=== PATIENT | male | born 1945 | race Caucasian/White ===

== ENCOUNTER 2019-09-10 07:45 | Outpatient (RCR) | payer SELFPAY | END 2020-05-14 14:21 | disposition home or self-care (01) | LOC: ANHCPRIII 07:45 | PROVIDERS: PCP Physician Assistant; Visit Provider Specialist | DX: I25.2 Old myocardial infarction (principal); I25.10 Atherosclerotic heart disease of native coronary artery without angina pectoris; I10 Essential (primary) hypertension | CPT/HCPCS: 99199 ==

== ENCOUNTER 2020-11-12 14:59 | Outpatient (CLI) | payer MEDICARE, SELFPAY ==
--- NOTE | ~2020-11-12 | CT_ITS ---
EXAMINATION: CT lung screening DATE: 11/12/2020 15:16 INDICATION: Personal history of nicotine dependence, 50 pack year history TECHNIQUE: Computed tomography (CT) of the chest was performed without intravenous contrast. The dose -length product (DLP) was 80.47 mGy-cm. Automated exposure control and iterative reconstruction techn ique were employed. COMPARISON: 04/09/2019 FINDINGS: There is scarring of the lung apices. Mild emphysema is noted. No suspicious pulmonary nodu les are identified. There is no pleural effusion or pneumothorax. The heart size is normal. Calcified coronary artery atherosclerosis is again noted. There is mild thoracic spondylosis. Healed right-nicholas ed rib fractures are noted. IMPRESSION: 1. Lung-RADS category 1: Negative. Continue annual screening with noncontrast low-dose chest CT in 12 months. Reviewed, dictated and finalized at location A. IMPRESSION: 1. Lung-RADS category 1: Negative. Continue annual screening with noncontrast l ow-dose chest CT in 12 months.
== END 2020-11-12 15:00 | disposition home or self-care (01) ==
PROVIDERS: PCP Physician Assistant; Visit Provider Physician Assistant
DX: Z12.2 Encounter for screening for malignant neoplasm of respiratory organs (principal); Z87.891 Personal history of nicotine dependence
CPT/HCPCS: 71271

== ENCOUNTER 2022-02-05 12:52 | Outpatient (CLI) | payer MEDICARE, SELFPAY ==
--- NOTE | ~2022-02-05 | CT_ITS ---
EXAMINATION: CT lung screening DATE: 02/05/2022 13:17 INDICATION: Personal history of nicotine dependence, current smoker with 45 pack year history TECHNIQUE: Computed tomography (CT) of the chest was performed without intravenous contrast. The dose -length product (DLP) was 174.33 mGy-cm. Automated exposure control and iterative reconstruction tech [facility] were employed. COMPARISON: 11/12/2020 FINDINGS: There is mild emphysema. There is a new 4 mm nodule in the right upper lobe on image 40. No pleural effusion or pneumothorax. No pathologically enlarged thoracic lymph nodes are identified. Th e heart size is normal. There is scarring in the lung apices. There is mild thoracic spondylosis. Hea led right-sided rib fractures are noted. There is unchanged sclerosis in the medial aspect of the man ubrium sternum at the articulation with the first rib. Given the interval stability and the absence o f known malignancy, finding is most consistent with reactive change. IMPRESSION: 1. Lung-RADS category 3: Probably benign. Followup with noncontrast low-dose chest CT in 6 months is recommended. Reviewed, dictated and finalized at location B. IMPRESSION: 1. Lung-RADS category 3: Probably benign. Followup with noncontrast low-dose ch est CT in 6 months is recommended.
== END 2022-02-05 12:53 | disposition home or self-care (01) ==
PROVIDERS: PCP Physician Assistant; Visit Provider Physician Assistant
DX: Z12.2 Encounter for screening for malignant neoplasm of respiratory organs (principal); Z87.891 Personal history of nicotine dependence
CPT/HCPCS: 71271

== ENCOUNTER 2022-08-13 09:05 | Outpatient (CLI) | payer MEDICARE, SELFPAY ==
--- NOTE | ~2022-08-13 | CT_ITS ---
CORRECTED REPORT CT lung screening changed to CT diagnostic chest wo con [id number] EXAMINATION: CT diagnostic chest wo con DATE: 08/13/2022 09:25 INDICATION: Nicotine dependence. Pulmonary nodules. TECHNIQUE: Computed tomography (CT) of the chest was performed without intravenous contrast. The dose-length product was 85.19 mGy-cm. Automated exposure control and iterative reconstruction technique were employed. COMPARISON: CT dated 02/05/2022 and 11/12/2020 FINDINGS: No significant pleural or pericardial effusion. The upper abdomen is unremarkable. No mediastinal lymph node enlargement. There is chronic apical pleural thickening/scarring. These right upper lobe nodule seen on prior examination has significantly decreased in size compared with current study with near complete resolution, most likely infectious/inflammatory there are a few small bilateral nodules measuring 2 mm or less which are unchanged. There is emphysema. There is mild thoracic spondylosis. There is stable sclerosis of the chest sternum on the right near the reticulation with the first rib, most likely benign. Consider Paget's disease. No new lytic or blastic lesions. IMPRESSION: 1. Lung-RADS category 2: Benign appearance or behavior. Continue annual screening with noncontrast low-dose chest CT in 12 months. Reviewed, dictated and finalized at location A. INSPECTOR MORGAN
== END 2022-08-13 09:06 | disposition home or self-care (01) ==
PROVIDERS: PCP Physician Assistant; Visit Provider Physician Assistant
DX: Z09 Encounter for follow-up examination after completed treatment for conditions other than malignant neoplasm (principal); R91.8 Other nonspecific abnormal finding of lung field; Z87.891 Personal history of nicotine dependence
CPT/HCPCS: 71250; 71271

== ENCOUNTER 2022-11-21 10:12 | Emergency (ER) | payer MEDICARE, SELFPAY ==
--- NOTE | ~2022-11-21 | XR_ITS ---
EXAMINATION: XR chest 2V DATE: 11/21/2022 12:19 INDICATION: Weakness and chills TECHNIQUE: PA and lateral views of the chest were obtained. COMPARISON: Chest CT dated 02/13/2022 and chest radiograph dated 07/26/2018 FINDINGS: Biapical pleural-parenchymal scarring. Additional unchanged mild linear atelectasis/scarring at the a nteroinferior lingula best appreciated on the lateral projection. No new airspace opacities, pulmonar y edema, pleural effusion or pneumothorax. The cardiomediastinal silhouette is normal. Visualized bon es and soft tissues are unremarkable. IMPRESSION: 1. Stable appearance of chronic atelectasis/scarring at the lingula and the bilateral apices. No acut e cardiopulmonary disease. Reviewed, dictated and finalized at location A. IMPRESSION: 1. Stable appearance of chronic atelectasis/scarring at the lingula and the rashid ateral apices. No acute cardiopulmonary disease.
[2022-11-21 10:15] VITALS: BP 119/77; PULSE 125; RESP 16; TEMP 36.9; O2SAT 98
[2022-11-21] MEDS: SODIUM CHLORIDE 0.9% IV 1,000 ML 999 ML IV CONT (11:43)
[2022-11-21 11:55] LABS: Basophils Percent Auto 0.2 % (0.2-1.2); Eosinophils Absolute Auto 0.1 K/mm3 (0-0.3); Eosinophils Percent Auto 0.5 % (0-4.4); Hematocrit 39.2 % (42.0-52.0); Hemoglobin 13.7 g/dL (14.0-18.0); Immature Granulocyte Absolute 0.09 K/mm3 (0.00-0.031); Immature Granulocyte Percent A 0.6 % (0-0.5); Lymphocytes Absolute Auto 0.24 K/mm3 (0.9-3.2); Lymphocytes Percent Auto 1.7 % (18.3-44.2); Mean Corpuscular HGB Conc 34.9 g/dl (32-36); Mean Corpuscular Hemoglobin 30.6 pg (26-34); Mean Corpuscular Volume 87.7 fl (80-100); Mean Platelet Volume 10.1 fl (7.4-10.4); Monocytes Absolute Auto 0.7 K/mm3 (0.1-0.6); Monocytes Percent Auto 4.8 % (2.6-8.5); Neutrophils Absolute Auto 12.8 K/mm3 (1.3-6.7); Neutrophils Percent Auto 92.2 % (45.5-73.1); Platelet Count Result 182 k/mm3 (150-375); Red Blood Count 4.47 M/mm3 (4.6-6.20); Red Cell Distribution Width 12.5 % (11.5-14.5); White Blood Count 13.9 K/mm3 (4.5-10.0)
[2022-11-21 11:58] LABS: Appearance Urine Clear (Clear); Bacteria Urine None Seen /hpf; Bilirubin Urine Negative (Negative); Blood Urine Negative (Negative); Color Urine Yellow (Yellow); Glucose Urine UA Negative (Negative); Ketones Urine Negative (Negative); Leukocyte Esterase Ur Negative LEU/UL (Negative); Nitrate Urine Negative (Negative); Non Pathogenic Casts 0-2; Protein Urine Trace mg/dL (Negative); RBC Urine 0-2 /hpf (0-2); Specific Grav Ur 1.011 (1.001-1.035); Squamous Epithelial Cell Urine None seen /hpf (Few); WBC Urine 0-5 /hpf
[2022-11-21 12:05] LABS: Alanine Aminotransferase 19 U/L (6-50); Albumin Level 4.2 g/dL (3.5-5.1); Alkaline Phosphatase 74 U/L (38-126); Anion Gap 4 mmol/L (8-16); Aspartate Amino Transferase 27 U/L (17-59); Bilirubin,Total 0.6 mg/dL (0.2-1.3); Blood Urea Nitrogen 13 mg/dL (9-20); Calcium 9.2 mg/dL (8.4-10.2); Carbon Dioxide 33 mmol/L (22-30); Chloride 95 mmol/L (98-107); Estimated CRCL calculation 50 ml/min; Estimated Glomerular Filt Rate > 60; Glucose 119 mg/dL (65-110); Potassium 2.9 mmol/L (3.4-5.0); Sodium 132 mmol/L (137-145)
[2022-11-21 12:12] LABS: Add Urine Microscopic? YES
[2022-11-21 12:31] LABS: Influenza A QL RT-PCR Negative (Negative); Influenza B QL RT-PCR Negative (Negative); SARS-CoV-2 RNA PCR Negative
--- NOTE | 2022-11-21 13:29 | ED.GENADULT ---
HPI - General Adult General Chief complaint: Unspecified Stated complaint: shaking Time Seen by Provider: 11/21/22 10:54 History of Present Illness HPI narrative: Patient is a 77-year-old male who presents ER with shaking. Reports he woke up this morning and was doing well and then went to his computer was having shakiness to the point that he could not type on the computer. He reports it lasted for hours and resolved when he arrived to the ER. Denies any fevers or chills but he was feeling cold during this time. No runny nose or sore throat or cough. No chest pain or chest pressure. Patient does have history of regular alcohol use and he drinks 5 beers a day and he discontinued drinking on 11/13/2022. He has had no shakes since then and no other withdrawal symptoms. No history of seizure from withdrawal. Related Data Home Medications Medication Instructions Recorded Confirmed Claritin 08/04/19 albuterol sulfate 08/04/19 amlodipine 2.5 mg tablet 08/04/19 bupropion HCl 300 mg 24 hr tablet, mg PO 08/04/19 extended release hydrochlorothiazide 25 mg tablet 08/04/19 metoprolol tartrate 50 mg tablet 08/04/19 rosuvastatin 20 mg tablet mg 08/04/19 Allergies Allergy/AdvReac Type Severity Reaction Status Date / Time lisinopril Allergy Mild Swelling Verified 11/21/22 11:04 Review of Systems Review of Systems: All systems reviewed & are unremarkable except as noted in HPI and below Constitutional: Constitutional: Reports chills, Denies excessive sweating and Denies fever(s) Cardiovascular: Cardiovascular: Denies chest pain, Denies radiating jaw, neck or arm pain and Denies palpitations Respiratory: Respiratory: Denies cough and Denies dyspnea Gastrointestinal: Gastrointestinal: Denies abdominal pain, Denies nausea and Denies vomiting Neurologic: Denies headache(s), Denies tingling, Reports tremor(s) and Denies weakness [facility] Past Medical History Medical History (Updated 11/21/22 @ 15:25 by Narendra Ly MD) Anxiety Bilateral cataracts Bronchitis COPD (chronic obstructive pulmonary disease) Coronary artery disease Depression Emphysema (subcutaneous) (surgical) resulting from a procedure Hypercholesterolemia Hypertension Myocardial infarction Cardiac arrest September 2014, 2 stents placed Presence of combination internal cardiac defibrillator (ICD) and pacemaker Urinary tract infection Social History Social History Smoking status: Smoker, status unknown Alcohol intake: current Gender identity (if verbalized by the patient): Male Exam Narrative: GENERAL: Well-appearing, well-nourished, and in no acute distress. HEAD: Normocephalic, atraumatic. EYES: PERRL and EOMI. ENT: Mucous membranes moist. CHEST: Clear to auscultation. No respiratory distress. HEART: Regular rate and rhythm. Normal peripheral pulses. ABDOMEN: Soft, nontender, nondistended. EXTREMITIES: Normal range of motion. No edema. SKIN: Warm, dry, no rash. NEURO: Alert and oriented x3. PSYCH: Normal mood and affect. Course Course Emergency Course: Informed of results. D/c home. No tremors or shakes here. Patient with leukocytosis but no fever. COVID negative. No pneumonia or UTI. Patient has no infectious symptoms other than the shakes and chills. Discharge home. Vital Signs Vital signs: Vital Signs Temperature 98.5 F 11/21/22 10:15 Pulse Rate 125 H 11/21/22 10:15 Respiratory Rate 16 11/21/22 10:15 Blood Pressure 119/77 11/21/22 10:15 Pulse Oximetry 98 11/21/22 10:15 Oxygen Delivery Room Air 11/21/22 10:15 Temperature 98.5 F 11/21/22 10:15 Pulse Rate 125 H 11/21/22 10:15 Respiratory Rate 16 11/21/22 10:15 Blood Pressure 119/77 11/21/22 10:15 Pulse Oximetry 98 11/21/22 10:15 Oxygen Delivery Room Air 11/21/22 10:15 Medical Decision Making Vital Signs Vital Signs: Vital Signs Temperature 98.5 F 11/21
== END 2022-11-21 15:33 | disposition home or self-care (01) ==
PROVIDERS: Emergency Provider Emergency Medicine; PCP Physician Assistant
DX: R25.8 Other abnormal involuntary movements (principal); E87.6 Hypokalemia; Z20.822 Contact with and (suspected) exposure to COVID-19; I25.10 Atherosclerotic heart disease of native coronary artery without angina pectoris; J43.9 Emphysema, unspecified; E78.00 Pure hypercholesterolemia, unspecified; I25.2 Old myocardial infarction; H26.9 Unspecified cataract; Z95.810 Presence of automatic (implantable) cardiac defibrillator; Z87.442 Personal history of urinary calculi; R25.1 Tremor, unspecified
CPT/HCPCS: 36415; 71046; 80053; 81001; 85025; 87636; 96360; 99283; J7030

== ENCOUNTER 2022-12-20 05:40 | Emergency (ER) | payer MEDICARE, SELFPAY ==
[2022-12-20] VITALS (13 sets, daily range): BP systolic 108–130; BP diastolic 58–74; PULSE 74–98; RESP 16–29; TEMP 36.4; O2SAT 96–100
--- NOTE | ~2022-12-20 | US_ITS ---
EXAMINATION: US arterial duplex [facility] DATE: 12/20/2022 07:43 INDICATION: Postprocedural hemorrhage of a circulatory system organ or structure following a cardiac cath, bypass, or other circulatory system procedure. TECHNIQUE: Multiple grayscale and Doppler ultrasound images of the left lower limb were obtained. COMPARISON: None FINDINGS: Left common femoral vein, femoral vein, and deep femoral vein are patent. There is no signi ficant stenosis of left common femoral artery, deep femoral artery, or superficial femoral artery. IMPRESSION: 1. No pseudoaneurysm. Reviewed, dictated and finalized at location A. IMPRESSION: 1. No pseudoaneurysm.
--- NOTE | 2022-12-20 06:18 | PC.NURSE ---
Patient has paperwork from [facility] from his aortic aneurysm procedure that advises him to take his Metoprol if his systolic pressure is greater than 110 and take his amlodipine if his systolic is greater than 140.
--- NOTE | 2022-12-20 07:11 | ED.EXTPRO ---
HPI - Extremity Problem General Chief complaint: Extremity Problem,Nontraumatic Stated complaint: post op complications Time Seen by Provider: 12/20/22 06:15 History of Present Illness HPI Narrative: Pt had stents placed for blockages in both lower extremities and a stent placed in his aorta 6 dasy ago. Pt followed up with PCP yesterday and everything was fine. Pt says he had some serosanguinous leakage form his left inguinal surgical site this morning that has now resolved. Pt is otherwise fine. Related Data Home Medications Medication Instructions Recorded Confirmed Claritin 08/04/19 albuterol sulfate 08/04/19 amlodipine 2.5 mg tablet 08/04/19 bupropion HCl 300 mg 24 hr tablet, mg PO 08/04/19 extended release hydrochlorothiazide 25 mg tablet 08/04/19 metoprolol tartrate 50 mg tablet 08/04/19 rosuvastatin 20 mg tablet mg 08/04/19 Allergies Allergy/AdvReac Type Severity Reaction Status Date / Time lisinopril Allergy Mild Swelling Verified 12/20/22 05:40 Review of Systems Review of Systems: All systems reviewed & are unremarkable except as noted in HPI and below PMFSH Past Medical History Medical History (Updated 12/20/22 @ 08:28 by Elbert Luis III, DO) Anxiety Bilateral cataracts Bronchitis COPD (chronic obstructive pulmonary disease) Coronary artery disease Depression Emphysema (subcutaneous) (surgical) resulting from a procedure Hypercholesterolemia Hypertension Myocardial infarction Cardiac arrest September 2014, 2 stents placed Presence of combination internal cardiac defibrillator (ICD) and pacemaker Urinary tract infection Social History Social History Smoking status: Smoker, status unknown Alcohol intake: current Gender identity (if verbalized by the patient): Male Exam Const: General: healthy appearing and no acute distress Nutritional Appearance: well nourished Orientation/consciousness: patient oriented x3 Limitations: no limitations Resp: Effort & Inspection: normal respiratory effort Auscultation: clear to auscultation bilaterally Cardio: Rate: regular rate Rhythm: regular rhythm GI: GI Palp: Yes Soft to palpation Auscultation: normal bowel sounds Skin: Other: some bruising around cath site in groin Neuro: General: patient oriented x3 and moves all extremities Cranial nerves: Yes Nystagmus not present Speech: normal speech Extrem: Other: no drainage form cath site in left groin, no thrill noted on exam. peripheral pulses intact. Psych: Mental Status: mental status grossly normal Affect: normal affect Attitude: cooperative Course Vital Signs Vital signs: Vital Signs Temperature 97.5 F L 12/20/22 05:41 Pulse Rate 98 12/20/22 05:41 Respiratory Rate 16 12/20/22 05:41 Blood Pressure 108/60 12/20/22 05:41 Pulse Oximetry 98 12/20/22 05:41 Oxygen Delivery Room Air 12/20/22 05:41 Temperature 97.5 F L 12/20/22 05:41 Pulse Rate 86 12/20/22 08:56 Respiratory Rate 20 12/20/22 08:56 Blood Pressure 130/74 12/20/22 08:56 Pulse Oximetry 98 12/20/22 08:56 Oxygen Delivery Room Air 12/20/22 05:41 MDM - Extremity (Nontraumatic) MDM Narrative Medical decision making narrative: Pt had b/l LE stents placed for blockages and stent in aorta for aneurysm 6 days ago at [place] had some serosanguinous leakage from left inguinal site this morning now resolved. Arterial vascular studies ordered to rule out leakage or assess for anuerysm or pseudoaneurysm. arterial doppler neg for pseudoaneurysm. no further drainage. pt stable for discharge. Discharge Plan Discharge Clinical Impression: Wound drainage Patient Disposition: Home, Self-Care Condition: Stable Instructions: Antibiotic Form, Hematoma (ED) Prescriptions: No Action amlodipine 2.5 mg tablet metoprolol tartrate 50 mg tablet hydrochlorothiazide 25 mg ta
--- NOTE | 2022-12-20 07:51 | PC.NURSE ---
RN applies new leg bag for pt's indwelling [place] due to pt's old bag having rubber ties. Pt had a small blister and skin imprints from the tightness of the leg straps. Pt states new bag is more comfortable.
== END 2022-12-20 08:56 | disposition home or self-care (01) ==
PROVIDERS: Emergency Provider Emergency Medicine; PCP Physician Assistant
DX: I97.89 Other postprocedural complications and disorders of the circulatory system, not elsewhere classified (principal); J43.9 Emphysema, unspecified; I25.10 Atherosclerotic heart disease of native coronary artery without angina pectoris; I10 Essential (primary) hypertension; I25.2 Old myocardial infarction; E78.00 Pure hypercholesterolemia, unspecified; F41.9 Anxiety disorder, unspecified; F32.A Depression, unspecified; Z95.5 Presence of coronary angioplasty implant and graft; Z95.810 Presence of automatic (implantable) cardiac defibrillator; Z87.440 Personal history of urinary (tract) infections
CPT/HCPCS: 93926; 99284

== ENCOUNTER 2023-10-10 20:55 | Inpatient (IN) | payer MEDICARE, SELFPAY ==
[2023-10-10] VITALS (12 sets, daily range): BP systolic 120–178; BP diastolic 63–128; PULSE 87–96; RESP 25–40; TEMP 36.4–36.6; O2SAT 95–97
--- NOTE | ~2023-10-10 | XR_ITS ---
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 RESULT: Lines, tubes, and devices: None. Lungs and pleura: Moderate diffuse reticular opacities. Biapical pleural scarring. Minimal left cost ophrenic angle blunting. Cardiomediastinal silhouette: Stable. Other: No acute osseous or upper abdominal finding. IMPRESSION: Moderate interstitial edema. Small left pleural effusion versus chronic pleural scarring. Reviewed, dictated and finalized at location K. WAREHOUSE CONSULTANT
--- NOTE | ~2023-10-10 | CT_ITS ---
EXAMINATION: CTA chest PE protocol DATE: 10/10/2023 21:58 INDICATION: Hypoxia, Tachypnea TECHNIQUE: Computed tomography angiography (CTA) of the chest was performed with 100 mL Omnipaque-350 intravenous contrast timed to evaluate the pulmonary arteries. Coronal maximum intensity projection 3D-reconstructions were created by the technologist. The dose-length product (DLP) was 198.22 mGy-cm. Automated exposure control and iterative reconstruction technique were employed. COMPARISON: None. FINDINGS: Lung parenchyma and airways: Small foci of tree-in-bud opacities in the right upper and lower lobes, the lingula, and the dependent left lower lobe. Biapical pleural scarring. Mild septal thickening. Bi basilar scar/atelectasis. Pleura: Unremarkable. Thoracic inlet, axillae and chest wall: Unremarkable. Thoracic aorta: Moderate calcified and noncalcified plaque including ulcerative plaques in the arch a nd descending aorta. No significant dilation. No dissection. Mediastinum: Enlarged left hilar lymph nodes.. Heart and pericardium: Normal. Coronary artery calcifications: Moderate. Upper abdomen: No significant finding. Bones: No acute osseous finding. Pulmonary arteries: Study quality: Motion artifact limits evaluation of the subsegmental pulmonary ar teries. No pulmonary central or segmental emboli detected. IMPRESSION: Limited evaluation of the subsegmental pulmonary arteries. No CT evidence of acute central or segment al pulmonary embolus. Scattered pulmonary opacities as can be seen with atypical infection, airways disease, and aspiration . Mild interstitial edema. Right hilar lymphadenopathy. Reviewed, dictated and finalized at location K. R RESTORATION TECHNICIAN IMPRESSION: Limited evaluation of the subsegmental pulmonary arteries. No CT evidence of ac brandt central or segmental pulmonary embolus. Scattered pulmonary opacities as can be seen with atypical infection, airways d isease, and aspiration. Mild interstitial edema. Right hilar lymphadenopathy.
--- NOTE | 2023-10-10 20:59 | ECG_ITS ---
Measurements Intervals [place] Rate: 97 P: 72 MT: 170 QRS: 69 QRSD: 96 T: 32 QT: 342 QTc: 435 Interpretive Statements SINUS RHYTHM POSSIBLE LEFT ATRIAL ENLARGEMENT NONSPECIFIC T-WAVE ABNORMALITY- INFERIOR LEADS BASELINE ARTIFACT- V4-V6 BORDERLINE ECG NO PREVIOUS ECG AVAILABLE FOR COMPARISON Electronically Signed On 10-11-2023 6:28:31 JANITORIAL SUPERVISOR by Salbador Allen D.O.
[2023-10-10 21:14] LABS: Basophils Percent Auto 0.2 % (0.2-1.2); Eosinophils Absolute Auto 0.1 K/mm3 (0-0.3); Eosinophils Percent Auto 0.3 % (0-4.4); Hematocrit 42.4 % (42.0-52.0); Hemoglobin 14.2 g/dL (14.0-18.0); Immature Granulocyte Absolute 0.14 K/mm3 (0.00-0.031); Immature Granulocyte Percent A 0.6 % (0-0.5); Lymphocytes Absolute Auto 0.58 K/mm3 (0.9-3.2); Lymphocytes Percent Auto 2.5 % (18.3-44.2); Mean Corpuscular HGB Conc 33.5 g/dl (32-36); Mean Corpuscular Hemoglobin 30.3 pg (26-34); Mean Corpuscular Volume 90.6 fl (80-100); Mean Platelet Volume 9.6 fl (7.4-10.4); Monocytes Absolute Auto 1.4 K/mm3 (0.1-0.6); Neutrophils Percent Auto 90.4 % (45.5-73.1); Platelet Count Result 199 k/mm3 (150-375); Red Blood Count 4.68 M/mm3 (4.6-6.20); Red Cell Distribution Width 13.6 % (11.5-14.5); White Blood Count 23.2 K/mm3 (4.5-10.0)
[2023-10-10 21:21] LABS: Alveolar/Arterial O2 Gradient 298.2 mmHg; Base Excess ABG -2.5 mEq/l (+/-2.0); Fractional Inspired Oxygen 60 %; HCO3 ABG 21.7 mEq/l (22.0-26.0); Oxygen Content ABG 19.5 %vol (16.0-22.0); Oxygen Saturation ABG 96.9 % (95.0-100.0); Oxyhemoglobin 94.1 % THb (90.0-100.0); PCO2 ABG 36.2 mmHg (35.0-45.0); PO2 ABG 89.8 mmHg (80.0-100.0); Total Hemoglobin 14.7 g/dL (12.0-18.0); pH ABG 7.396 (7.350-7.450)
[2023-10-10 21:23] LABS: Device CPAP; Modified Allen's Test Pass; Site Drawn RIGHT RADIAL
[2023-10-10 21:24] LABS: CPAP 5 cmH2O
[2023-10-10 21:31] LABS: Alanine Aminotransferase 27 U/L (6-50); Albumin Level 4.2 g/dL (3.5-5.1); Alkaline Phosphatase 102 U/L (38-126); Anion Gap 8 mmol/L (8-16); Aspartate Amino Transferase 33 U/L (17-59); Bilirubin,Total 0.9 mg/dL (0.2-1.3); Blood Urea Nitrogen 12 mg/dL (9-20); Carbon Dioxide 22 mmol/L (22-30); Chloride 98 mmol/L (98-107); Estimated CRCL calculation 54 ml/min; Estimated Glomerular Filt Rate > 60; Glucose 151 mg/dL (65-110); Potassium 3.5 mmol/L (3.4-5.0); Sodium 128 mmol/L (137-145)
[2023-10-10 21:54] LABS: Influenza A QL RT-PCR Negative (Negative); Influenza B QL RT-PCR Negative (Negative); RSV RNA, RT-PCR Negative (Negative); SARS-CoV-2 RNA PCR Negative (Negative)
--- NOTE | 2023-10-10 22:03 | PC.NURSE ---
Patient taken off bipap per verbal order from provider. Patient on 5L NC at this time.
--- NOTE | 2023-10-10 23:01 | PM.IMHP ---
H&P: HPI History of Present Illness Date/Time: 10/10/23 23:01 Chief Complaint: sob Narrative: This is a 78-year-old male with past medical history significant for hypertension benign prostatic hyperplasia congestive heart failure ICD and pacemaker in place chronic obstructive pulmonary disease /emphysema [place]. Patient presents to the emergency room with complaints of worsening shortness of breath, weakness, generalized malaise, body aches and pains, chills, cough with sputum production. patient presents to the emergency due to worsening shortness of breath. patient tested negative for influenza type A influenza type B RSV and COVID. Patient was ruled out for pulmonary embolism with a negative CT angiogram of the chest. Patient is been admitted for further evaluation management and treatment. EXAMINATION:? XR chest 1V portable Exam Date/Time:? 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 Comparison:? 11/21/2022. RESULT: Lines, tubes, and devices:? None. Lungs and pleura:? Moderate diffuse reticular opacities. Biapical pleural scarring. Minimal left costophrenic angle blunting. Cardiomediastinal silhouette:? Stable. Other:? No acute osseous or upper abdominal finding. ? IMPRESSION: Moderate interstitial edema. Small left pleural effusion versus chronic pleural scarring. EXAMINATION: CTA chest PE protocol DATE: 10/10/2023 21:58 INDICATION: Hypoxia, Tachypnea TECHNIQUE: Computed tomography angiography (CTA) of the chest was performed with 100 mL Omnipaque-350 intravenous contrast timed to evaluate the pulmonary arteries. Coronal maximum intensity projection 3D-reconstructions were created by the technologist. The dose-length product (DLP) was 198.22 mGy-cm. Automated exposure control and iterative reconstruction technique were employed. COMPARISON: None. ? FINDINGS:? Lung parenchyma and airways: Small foci of tree-in-bud opacities in the right upper and lower lobes, the lingula, and the dependent left lower lobe. Biapical pleural scarring. Mild septal thickening. Bibasilar scar/atelectasis. Pleura: Unremarkable. Thoracic inlet, axillae and chest wall: Unremarkable. Thoracic aorta: Moderate calcified and noncalcified plaque including ulcerative plaques in the arch and descending aorta. No significant dilation. No dissection. Mediastinum: Enlarged left hilar lymph nodes.. Heart and pericardium: Normal. Coronary artery calcifications: Moderate. Upper abdomen: No significant finding. Bones: No acute osseous finding. Pulmonary arteries: Study quality: Motion artifact limits evaluation of the subsegmental pulmonary arteries. No pulmonary central or segmental emboli detected. IMPRESSION: Limited evaluation of the subsegmental pulmonary arteries. No CT evidence of acute central or segmental pulmonary embolus. Scattered pulmonary opacities as can be seen with atypical infection, airways disease, and aspiration. Mild interstitial edema. Right hilar lymphadenopathy. Review of Systems Review of Systems: sob, cough productive, poor appetite x 3 days Constitutional: Constitutional: Reports poor appetite and Reports weakness Eyes: Eyes: Denies change in vision ENT: Denies dysphagia and Denies odynophagia Cardiovascular: Cardiovascular: Denies chest pain, Denies radiating jaw, neck or arm pain and Denies palpitations Respiratory: Respiratory: Reports change in phlegm color, Reports chest congestion, Reports cough (productive) and Reports dyspnea Gastrointestinal: Gastrointestinal: Denies abdominal pain, Denies dyspepsia, Denies heartburn, Denies diarrhea, Denies nausea and Denies vomiting Genitourinary: Genitourinary: Denies dysuria Musculoskeletal: Musculoskeletal: Reports muscle weakness Integumentary/Breasts: Skin/Breast: Denies rash Neurologic: Denies focal weakness and Denies Sensory deficit (Neuro) Psychiatric: Psychiatric: Reports no additional psychiatric complaints and Reports as per H
--- NOTE | 2023-10-10 23:14 | ED.GENADULT ---
HPI - General Adult General Chief complaint: Shortness of Breath/Dyspnea Stated complaint: sob Time Seen by Provider: 10/10/23 21:17 History of Present Illness HPI narrative: Patient is a 78-year-old male who presents to the emergency department this evening via EMS due to tachypnea and shortness of breath. Patient states that he was at a bar with his when he started to feel unwell and short of breath. Patient went home and tried to rest, however, when his friend came to check on him he was concerned about him not feeling well and decided to call 911. Patient was tachypneic with respiratory rate of 40 upon arrival to our emergency department. EMS did place him on a CPAP. Upon arrival, patient states that he feels better already. Patient admits to history of COPD and emphysema. He also admits to a history of coronary artery disease. Patient is currently denying any chest pain and denies any abdominal pain. He also denies any nausea, vomiting, dysuria, hematuria, constipation, diarrhea, headaches, dizziness, blurred visions, focal weakness, numbness or tingling. There are no other modifying, alleviating, or precipitating factors at this time. Related Data Home Medications Medication Instructions Recorded Confirmed Claritin 08/04/19 albuterol sulfate 08/04/19 amlodipine 2.5 mg tablet 08/04/19 bupropion HCl 300 mg 24 hr tablet, mg PO 08/04/19 extended release hydrochlorothiazide 25 mg tablet 08/04/19 metoprolol tartrate 50 mg tablet 08/04/19 rosuvastatin 20 mg tablet mg 08/04/19 Allergies Allergy/AdvReac Type Severity Reaction Status Date / Time lisinopril Allergy Mild Swelling Verified 12/20/22 05:40 Review of Systems Review of Systems: All systems are reviewed and are negative unless stated otherwise in the HPI. [facility] Past Medical History Medical History Anxiety Bilateral cataracts Bronchitis COPD (chronic obstructive pulmonary disease) Coronary artery disease Depression Emphysema (subcutaneous) (surgical) resulting from a procedure Hypercholesterolemia Hypertension Myocardial infarction Cardiac arrest September 2014, 2 stents placed Presence of combination internal cardiac defibrillator (ICD) and pacemaker Urinary tract infection Social History Social History Smoking status: Smoker, status unknown Alcohol intake: current Gender identity (if verbalized by the patient): Male Exam Narrative: General: Alert, awake, afebrile, in no acute distress. HEENT: PERRL, no rhinorrhea, no post nasal drip, oropharynx clear. Neck: Trachea midline, no JVD, no lymphadenopathy. Cardiovascular: Regular rate and rhythm, no murmurs, rubs or gallops, no peripheral edema. Respiratory: Mild crackles bilaterally, tachypnea, no wheezing, no rhonchi, no rubs, no respiratory distress. Abdomen: Soft, nontender, nondistended, no rebound, no guarding, no peritoneal signs. Musculoskeletal: No joint swelling or deformity, normal muscle tone. Skin: No rashes or petechia, no signs of infection. Psychiatric: Alert and oriented, normal behavior and judgment for situation. Neurological: Alert and oriented to person, place, and time. Follows all commands. No focal deficits, speech is clear and fluent. Course Vital Signs Vital signs: Vital Signs Temperature 97.6 F 10/10/23 20:53 Pulse Rate 96 10/10/23 20:53 Respiratory Rate 37 H 10/10/23 20:53 Blood Pressure 178/88 H 10/10/23 20:53 Pulse Oximetry 97 10/10/23 20:53 Oxygen Delivery CPAP 10/10/23 20:53 Temperature 98 F 10/10/23 23:08 Pulse Rate 87 10/10/23 23:10 Respiratory Rate 25 H 10/10/23 23:08 Blood Pressure 135/63 10/10/23 23:08 Pulse Oximetry 96 10/10/23 23:08 Oxygen Delivery CPAP 10/10/23 21:06 Medical Decision Making [facility] Narrative Medical decision making narrative: The patient was evaluated by
[2023-10-10] MEDS: AZITHROMYCIN 500 MG/NS 250 ML 500 MG/250 ML BAG 250 MG IVPB (23:42)
[2023-10-11] VITALS (23 sets, daily range): BP systolic 109–136; BP diastolic 45–77; PULSE 77–142; RESP 14–32; TEMP 36.1–36.6; O2SAT 93–98; BMI 22.4
--- NOTE | 2023-10-11 | ECHO_ITS ---
Patient Info Name: Jackson Drake Age: 78 years : 1945 Gender: Male Ht: 67 in Wt: 142 lbs BSA: 1.75 m2 HR: 92 bpm BP: 109 / 45 mmHg Heart Rhythm: Sinus Rhythm Technical Quality: Poor Exam Date: 10/11/2023 3:25 PM Exam Location: Echo Lab Exam Room: [facility] Patient Status: Inpatient Admit Date: 10/11/2023 Staff Ordering Physician: Sayda Gifford APRN Bottom Finisher: Kristina Benjamin RDCS Attending Provider: Isac Rob MD Referring Physician: Balta PICHARDO; Exam Type: CA echo dop color flow w con Study Info Indications - angina sob tachycardia tachypenia Complete two-dimensional, color flow and Doppler transthoracic echocardiogram is performed with contrast to opacify the left ventricle and to improve the deliniation of the left ventricle endocardial borders. Contrast/Agitated Saline Contrast/Ag. Saline: Definity Amount: 2.00 ml Administered By: Kristina Benjamin [facility] Existing IV Access: Yes IV Access Condition: patent with no signs of infiltration Reason for Poor Study: patient body habitus Summary 1. Left ventricular chamber dimension is mildly enlarged. 2. Left ventricular systolic function is normal, estimated at 55-60%. 3. There is mildly increased left ventricular wall thickness. 4. The left ventricular diastolic function is grade I diastolic dysfunction. 5. The mid inferolateral wall is akinetic. 6. The basal inferior wall, mid inferior wall, basal anterolateral wall, mid anterolateral wall, and basal inferolateral wall are hypokinetic. 7. Left atrial chamber dimension is mildly enlarged. 8. There is moderate aortic valve calcification. 9. There is mild mitral valve regurgitation. 10. There is mild tricuspid valve regurgitation. 11. There is mild pulmonic regurgitation. Left Ventricle Left ventricular chamber dimension is mildly enlarged. Left ventricular systolic function is normal, estimated at 55-60%. There is mildly increased left ventricular wall thickness. The left ventricular diastolic function is grade I diastolic dysfunction. The mid inferolateral wall is akinetic. The basal inferior wall, mid inferior wall, basal anterolateral wall, mid anterolateral wall, and basal inferolateral wall are hypokinetic. All other baptiste appear normal. Right Ventricle Right ventricular chamber dimension is normal. Right ventricular systolic function is normal. Left Atria Left atrial chamber dimension is mildly enlarged. Right Atria Right atrial chamber dimension is normal. Atrial Septum Intact interatrial septum visualized by color flow imaging. Aortic Valve The aortic valve is trileaflet. There is no aortic valve stenosis. There is trace aortic valve regurgitation. There is moderate aortic valve calcification. Pulmonic Valve The pulmonic valve is normal. There is no pulmonic valve stenosis. There is mild pulmonic regurgitation. Mitral Valve The mitral valve has normal leaflets. There is no mitral valve stenosis. There is mild mitral valve regurgitation. Tricuspid Valve The tricuspid valve leaflets are normal. There is no significant tricuspid valve stenosis. There is mild tricuspid valve regurgitation. No pulmonary hypertension, estimated pulmonary arterial systolic pressure is 31 mmHg. Pericardium/Pleural The pericardium appears normal. There is no pericardial effusion. Inferior Vena Cava Normal inferior vena cava with >50% collapse upon inspiration consistent with normal right atrial pressure, 10 mmHg. Aorta The aortic root size at the sinus of
[2023-10-11] MEDS: IPRATROPIUM 0.5 MG/ALBUTEROL SULFATE 2.5 MG AMPUL.NEB 3 ML INHALATION ×3 (08:24→19:23)
[2023-10-11 08:32] LABS: Hematocrit 40.4 % (42.0-52.0); Hemoglobin 13.4 g/dL (14.0-18.0); Mean Corpuscular HGB Conc 33.2 g/dl (32-36); Mean Corpuscular Hemoglobin 30.2 pg (26-34); Mean Corpuscular Volume 91.2 fl (80-100); Mean Platelet Volume 9.9 fl (7.4-10.4); Platelet Count Result 191 k/mm3 (150-375); Red Blood Count 4.43 M/mm3 (4.6-6.20); Red Cell Distribution Width 13.6 % (11.5-14.5); White Blood Count 21.7 K/mm3 (4.5-10.0)
[2023-10-11 08:34] LABS: Alanine Aminotransferase 24 U/L (6-50); Albumin Level 3.8 g/dL (3.5-5.1); Alkaline Phosphatase 89 U/L (38-126); Anion Gap 5 mmol/L (8-16); Aspartate Amino Transferase 27 U/L (17-59); Bilirubin,Total 0.8 mg/dL (0.2-1.3); Blood Urea Nitrogen 13 mg/dL (9-20); Calcium 9.1 mg/dL (8.4-10.2); Carbon Dioxide 26 mmol/L (22-30); Chloride 100 mmol/L (98-107); Estimated CRCL calculation 49 ml/min; Estimated Glomerular Filt Rate > 60; Glucose 103 mg/dL (65-110); Magnesium 2.1 mg/dL (1.6-2.3); Sodium 131 mmol/L (137-145)
[2023-10-11] MEDS: AZITHROMYCIN 250 MG TABLET 500 MG PO (09:34)
[2023-10-11] MEDS: AMOXICILLIN/CLAVULANATE K 875-125 MG TAB 1 TABLET PO ×2 (09:34→20:25)
[2023-10-11] MEDS: guaiFENesin 12 HR 600 MG TABCR PO ×2 (09:34→20:25)
[2023-10-11] MEDS: PANTOPRAZOLE 40 MG TABLET PO (09:35)
[2023-10-11 09:37] LABS: Hemoglobin A1C 5.8 % (<5.7)
--- NOTE | 2023-10-11 13:08 | PC.NURSE ---
called Dr Wilburn office to clarify meds. Spoke to Lynette TERESA
--- NOTE | 2023-10-11 14:23 | P.PNIM_ITS ---
Progress Note: A&P Assessment and Plan (1) Coronary artery disease: Code(s): I25.10 - Atherosclerotic heart disease of [place] coronary artery without angina pectoris Status: Acute (2) COPD (chronic obstructive pulmonary disease): Code(s): J44.9 - Chronic obstructive pulmonary disease, unspecified Status: Acute (3) Pneumonia: Code(s): J18.9 - Pneumonia, unspecified organism Status: Acute (4) Sepsis without septic shock: Code(s): A41.9 - Sepsis, unspecified organism Status: Acute Plan Sepsis without septic shock secondary to pneumonia and COPD exacerbation * RR 40, WBC 23, Tachycardia, PNA on CTA * empiric IV antibiotic therapy/Augmentin and azithromycin * Monitor lactic acid levels q6hr. * Repeat CBC, CMP. * Two sets of blood cultures pending * urine cultures. No growth to date * C-reactive proteins pending * procalcitonin level. Pending * Pneumonia * Bronchodilators. * Chest x-ray * incentive spirometry while awake. * influenza/COVID/RSV negative * Augmentin/azithromycin * Guaifenesin * supplemental oxygen therapy to maintain oxygen 92% * Smoking cessation counseling done * CMP/CBC daily HTN * BP soft this time * Will resume medications once reconciled patient previously taking metoprolol COPD * Bronchodilators. * Chest x-ray * incentive spirometry while awake. * azithromycin 500 x 1 day/250 daily * supplemental oxygen therapy to maintain oxygen 92% * Evaluation from home O2 if saturation less than 88% on room air. 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 Time Spent With Patient Time with patient: 25 - 35 minutes Subjective Date/time seen: 10/11/23 14:23 Interval history: 10/10: Patient assessed in bed, family at bedside reports continued generalized weakness and SOB. Patient does have a history of COPD and is an everyday smoker. WBC slowly trending down, NA 131 today secondary to dehydration. No other complaints at this time family did report decrease in gait and cognition. PT/pending for evaluation. Continue with current treatment plan for PNA/COPD. Review of Systems Review of Systems: All systems reviewed & are unremarkable except as noted in HPI and below Exam Narrative: Physical Exam: * GENERAL: Acutely ill-looking male alert and oriented x 3. No acute distress. Well-nourished. Looks older than stated age * EYES: EOMI. No scleral icterus. PERRLA. * HEENT: Moist mucous membranes. No cervical lymphadenopathy. * LUNGS: diminished Wheezing throughout lung vazquez. No accessory muscle use. * CARDIOVASCULAR: Regular rate and rhythm. No murmur. No JVD. S1-S2 * ABDOMEN: Soft, mild tenderness and non-distended. No palpable masses. * EXTREMITIES: No edema. Non-tender * SKIN: No rashes or lesions. Skin warm, dry. * NEUROLOGIC: No focal neurological deficits. CN II-XII grossly intact * PSYCHIATRIC: Appropriate mood and affect. Good judgement and insight. No visual or auditory halluci
--- NOTE | 2023-10-11 14:23 | PM.IMPN ---
Progress Note: A&P Assessment and Plan (1) Coronary artery disease: Code(s): I25.10 - Atherosclerotic heart disease of [place] coronary artery without angina pectoris Status: Acute (2) COPD (chronic obstructive pulmonary disease): Code(s): J44.9 - Chronic obstructive pulmonary disease, unspecified Status: Acute (3) Pneumonia: Code(s): J18.9 - Pneumonia, unspecified organism Status: Acute (4) Sepsis without septic shock: Code(s): A41.9 - Sepsis, unspecified organism Status: Acute Plan Sepsis without septic shock secondary to pneumonia and COPD exacerbation RR 40, WBC 23, Tachycardia, PNA on CTA empiric IV antibiotic therapy/Augmentin and azithromycin Monitor lactic acid levels q6hr. Repeat CBC, CMP. Two sets of blood cultures pending urine cultures. No growth to date C-reactive proteins pending procalcitonin level. Pending Pneumonia Bronchodilators. Chest x-ray incentive spirometry while awake. influenza/COVID/RSV negative Augmentin/azithromycin Guaifenesin supplemental oxygen therapy to maintain oxygen 92% Smoking cessation counseling done CMP/CBC daily HTN BP soft this time Will resume medications once reconciled patient previously taking metoprolol COPD Bronchodilators. Chest x-ray incentive spirometry while awake. azithromycin 500 x 1 day/250 daily supplemental oxygen therapy to maintain oxygen 92% Evaluation from home O2 if saturation less than 88% on room air. Smoking cessation counseling done Follow-up with machine ironer as an outpatient BPH stable monitor output resumed flomax Code status: Full code per patient DVT prophylaxis: Lovenox Stress ulcer prophylaxis: Protonix 40 daily PT/OT notes: PT/OT pending Disposition: Patient continues admission for pneumonia COPD exacerbation continued antibiotic therapy and DuoNebs, PT/OT and the for evaluation patient may need home health or skilled discharge. Time Spent With Patient Time with patient: 25 - 35 minutes Subjective Date/time seen: 10/11/23 14:23 Interval history: 10/10: Patient assessed in bed, family at bedside reports continued generalized weakness and SOB. Patient does have a history of COPD and is an everyday smoker. WBC slowly trending down, NA 131 today secondary to dehydration. No other complaints at this time family did report decrease in gait and cognition. PT/pending for evaluation. Continue with current treatment plan for PNA/COPD. Review of Systems Review of Systems: All systems reviewed & are unremarkable except as noted in HPI and below Exam Narrative: Physical Exam: GENERAL: Acutely ill-looking male alert and oriented x 3. No acute distress. Well-nourished. Looks older than stated age EYES: EOMI. No scleral icterus. PERRLA. HEENT: Moist mucous membranes. No cervical lymphadenopathy. LUNGS: diminished Wheezing throughout lung vazquez. No accessory muscle use. CARDIOVASCULAR: Regular rate and rhythm. No murmur. No JVD. S1-S2 ABDOMEN: Soft, mild tenderness and non-distended. No palpable masses. EXTREMITIES: No edema. Non-tender SKIN: No rashes or lesions. Skin warm, dry. NEUROLOGIC: No focal neurological deficits. CN II-XII grossly intact PSYCHIATRIC: Appropriate mood and affect. Good judgement and insight. No visual or auditory hallucinations. No suicidal or homicidal ideation. Objective Data Vital Signs Vital Signs: Vital Signs - 24 hr 10/10/23 20:53 10/10/23 21:00 10/10/23 21:01 Temperature 97.6 F Pulse Rate 96 95 Respiratory Rate 37 H Blood Pressure 178/88 H Pulse Oximetry 97 97 Oxygen Delivery CPAP CPAP Oxygen Flow Rate 10/10/23 21:06 10/10/23 21:08 10/10/23 21:31 Temperature Pulse Rate 95 94 Respiratory Rate 40 H 33 H Blood Pressure 178/88 H 151/128 H Pulse Oximetry 97 97 97 Oxygen Delivery CPAP Oxygen Flow Rate 10/09
[2023-10-11] MEDS: ASPIRIN 325 MG TABLET PO (15:24)
[2023-10-11] MEDS: METOPROLOL TARTRATE 25 MG TABLET PO ×2 (15:24→20:25)
[2023-10-11] MEDS: VITAMIN B COMPLEX CAPSULE 1 CAP PO (15:26)
[2023-10-11] MEDS: DULoxetine HCL 60 MG CAPSULE.DR PO (15:26)
[2023-10-11] MEDS: FOLIC ACID 1 MG TABLET PO (15:26)
[2023-10-11 15:29] LABS: Troponin I 0.016 ng/mL (0.000-0.034)
[2023-10-11] MEDS: PERFLUTREN LIPID MICROSPHERES 1.5 ML VIAL DILUTED TO 10 ML TOTAL VOLUME IV PUSH (16:00)
--- NOTE | 2023-10-11 16:13 | IVDEFINITY ---
Prior to administration of IV Definity the patient was educated on the risks and benefits of the imaging enhancing agent including potential adverse side effects. The patient verbalized understanding. Allergies were verified. No exclusion criteria were identified and at least one of the following inclusion criteria were met: 1) physician request, 2) patient technically difficult to image (per the [place] [employer]ocardi[employer] guidelines of two or more segments not discernable within the apical view), or 3) questionable left ventricular function. ?
[2023-10-11] MEDS: TAMSULOSIN HCL 0.4 MG CAPSULE PO (18:22)
[2023-10-11] MEDS: ROSUVASTATIN 10 MG TABLET 40 MG PO (20:25)
[2023-10-12] VITALS (21 sets, daily range): BP systolic 125–149; BP diastolic 65–76; PULSE 68–103; RESP 16–20; TEMP 36.4–36.6; O2SAT 94–100
[2023-10-12] MEDS: IPRATROPIUM 0.5 MG/ALBUTEROL SULFATE 2.5 MG AMPUL.NEB 3 ML INHALATION ×4 (02:31→20:59)
[2023-10-12 06:34] LABS: Hematocrit 39.3 % (42.0-52.0); Mean Corpuscular HGB Conc 33.1 g/dl (32-36); Mean Corpuscular Hemoglobin 30.2 pg (26-34); Mean Corpuscular Volume 91.2 fl (80-100); Mean Platelet Volume 9.9 fl (7.4-10.4); Platelet Count Result 200 k/mm3 (150-375); Red Blood Count 4.31 M/mm3 (4.6-6.20); Red Cell Distribution Width 13.4 % (11.5-14.5)
[2023-10-12 06:54] LABS: Alanine Aminotransferase 22 U/L (6-50); Albumin Level 3.7 g/dL (3.5-5.1); Alkaline Phosphatase 85 U/L (38-126); Anion Gap 8 mmol/L (8-16); Aspartate Amino Transferase 29 U/L (17-59); Bilirubin,Total 0.7 mg/dL (0.2-1.3); Blood Urea Nitrogen 18 mg/dL (9-20); Carbon Dioxide 24 mmol/L (22-30); Chloride 102 mmol/L (98-107); Estimated CRCL calculation 49 ml/min; Estimated Glomerular Filt Rate > 60; Glucose 101 mg/dL (65-110); Potassium 3.6 mmol/L (3.4-5.0); Sodium 134 mmol/L (137-145)
[2023-10-12 07:31] LABS: Procalcitonin 0.3 ng/mL
--- NOTE | 2023-10-12 08:16 | P.PNIM_ITS ---
Progress Note: A&P Assessment and Plan (1) Coronary artery disease: Code(s): I25.10 - Atherosclerotic heart disease of [place] coronary artery without angina pectoris Status: Acute (2) COPD (chronic obstructive pulmonary disease): Code(s): J44.9 - Chronic obstructive pulmonary disease, unspecified Status: Acute (3) Pneumonia: Code(s): J18.9 - Pneumonia, unspecified organism Status: Acute (4) Sepsis without septic shock: Code(s): A41.9 - Sepsis, unspecified organism Status: Acute Plan Sepsis without septic shock secondary to pneumonia and COPD exacerbation- IMPROVING * RR 40, WBC 23, Tachycardia, PNA on CTA * empiric IV antibiotic therapy/Augmentin and azithromycin * Monitor lactic acid levels q6hr. * Repeat CBC, CMP. * Two sets of blood cultures pending * urine cultures. No growth to date * C-reactive proteins elevated * procalcitonin level. WNL * 10/11: * WBC trending down Pneumonia * Bronchodilators. * Chest x-ray * incentive spirometry while awake. * influenza/COVID/RSV negative * Augmentin/azithromycin * Guaifenesin * supplemental oxygen therapy to maintain oxygen 92% * Smoking cessation counseling done * CMP/CBC daily * 10/11: * WBC improving * BC with NGTD HTN * BP soft this time * Will resume medications once reconciled patient previously taking metoprolol * 10/11: * BP improved now with mild HTN will resume home medication of BB COPD * Bronchodilators. * Chest x-ray * incentive spirometry while awake. * azithromycin 500 x 1 day/250 daily * supplemental oxygen therapy to maintain oxygen 92% * Evaluation from home O2 if saturation less than 88% on room air. * Smoking cessation counseling done * Follow-up with can filler as an outpatient CAD * cardiac arrest 2014 * ICD in place * Run of [employer] 10/11 * Mag/K+ in range continue to monitor * cardiac monitoring * Echo pending BPH * stable * monitor output * resumed flomax Code status: Full code per patient DVT prophylaxis: Lovenox Stress ulcer prophylaxis: Protonix 40 daily PT/OT notes: PT/OT pending Disposition: Patient continues admission for pneumonia COPD exacerbation continued antibiotic therapy and DuoNebs, PT/OT and the for evaluation, patient would benefit from home health. Time Spent With Patient Time with patient: 15 - 25 minutes Subjective Date/time seen: 10/12/23 08:16 Interval history: 10/10: Patient assessed in bed, family at bedside reports continued generalized weakness and SOB. Patient does have a history of COPD and is an everyday smoker. WBC slowly trending down, NA 131 today secondary to dehydration. No other complaints at this time family did report decrease in gait and cognition. PT/pending for evaluation. Continue with current treatment plan for PNA/COPD. 10/11: Patient WBC trending down remains on RA, BC with NGTD. Patient states he feels a little better today. Patient did have a run of VTAch, mag WNL and echo pending, patient already has ICD in place will continue with telemetry monitoring. Will need to attempt to wean oxygen may need home O2 evaluation prior to discharge. Review of Systems Review of Systems: All systems reviewed & are unremarkable except as noted in HPI and below Exam Narrative: Physical Exam: * GENERAL: Acutely ill-looking male a
--- NOTE | 2023-10-12 08:16 | PM.IMPN ---
Progress Note: A&P Assessment and Plan (1) Coronary artery disease: Code(s): I25.10 - Atherosclerotic heart disease of [place] coronary artery without angina pectoris Status: Acute (2) COPD (chronic obstructive pulmonary disease): Code(s): J44.9 - Chronic obstructive pulmonary disease, unspecified Status: Acute (3) Pneumonia: Code(s): J18.9 - Pneumonia, unspecified organism Status: Acute (4) Sepsis without septic shock: Code(s): A41.9 - Sepsis, unspecified organism Status: Acute Plan Sepsis without septic shock secondary to pneumonia and COPD exacerbation-IMPROVING RR 40, WBC 23, Tachycardia, PNA on CTA empiric IV antibiotic therapy/Augmentin and azithromycin Monitor lactic acid levels q6hr. Repeat CBC, CMP. Two sets of blood cultures pending urine cultures. No growth to date C-reactive proteins elevated procalcitonin level. WNL 10/11: WBC trending down Pneumonia Bronchodilators. Chest x-ray incentive spirometry while awake. influenza/COVID/RSV negative Augmentin/azithromycin Guaifenesin supplemental oxygen therapy to maintain oxygen 92% Smoking cessation counseling done CMP/CBC daily 10/11: WBC improving BC with NGTD HTN BP soft this time Will resume medications once reconciled patient previously taking metoprolol 10/11: BP improved now with mild HTN will resume home medication of BB COPD Bronchodilators. Chest x-ray incentive spirometry while awake. azithromycin 500 x 1 day/250 daily supplemental oxygen therapy to maintain oxygen 92% Evaluation from home O2 if saturation less than 88% on room air. 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 Time Spent With Patient Time with patient: 15 - 25 minutes Subjective Date/time seen: 10/12/23 08:16 Interval history: 10/10: Patient assessed in bed, family at bedside reports continued generalized weakness and SOB. Patient does have a history of COPD and is an everyday smoker. WBC slowly trending down, NA 131 today secondary to dehydration. No other complaints at this time family did report decrease in gait and cognition. PT/pending for evaluation. Continue with current treatment plan for PNA/COPD. 10/11: Patient WBC trending down remains on RA, BC with NGTD. Patient states he feels a little better today. Patient did have a run of VTAch, mag WNL and echo pending, patient already has ICD in place will continue with telemetry monitoring. Will need to attempt to wean oxygen may need home O2 evaluation prior to discharge. Review of Systems Review of Systems: All systems reviewed & are unremarkable except as noted in HPI and below Exam Narrative: Physical Exam: GENERAL: Acutely ill-looking male alert and oriented x 3. No acute distress. Well-nourished. Looks older than stated age EYES: EOMI. No scleral icterus. PERRLA. HEENT: Moist mucous membranes. No cervical lymphadenopathy. LUNGS: diminished Wheezing throughout lung vazquez. No accessory muscle use. CARDIOVASCULAR: Regular rate and rhythm. No murmur. No JVD. S1-S2 ABDOMEN: Soft, mild tenderness and non-distended. No palpable masses. EXTREMITIES: No edema. Non-tender SKIN: No rashes or lesions. Skin warm, dry. NEUROLOGIC: No focal neurological deficits. CN II-XII grossly intact PSYCHIATRIC: Appropriate mood and affect. Good judg
[2023-10-12] MEDS: METOPROLOL TARTRATE 25 MG TABLET PO ×2 (09:01→20:56)
[2023-10-12] MEDS: VITAMIN B COMPLEX CAPSULE 1 CAP PO (09:01)
[2023-10-12] MEDS: guaiFENesin 12 HR 600 MG TABCR PO ×2 (09:01→20:55)
[2023-10-12] MEDS: ASPIRIN 325 MG TABLET PO (09:01)
[2023-10-12] MEDS: DULoxetine HCL 60 MG CAPSULE.DR PO (09:01)
[2023-10-12] MEDS: FOLIC ACID 1 MG TABLET PO (09:01)
[2023-10-12] MEDS: PANTOPRAZOLE 40 MG TABLET PO (09:01)
[2023-10-12] MEDS: AZITHROMYCIN 250 MG TABLET 500 MG PO (09:01)
[2023-10-12] MEDS: AMOXICILLIN/CLAVULANATE K 875-125 MG TAB 1 TABLET PO ×2 (09:01→20:55)
[2023-10-12 11:06] LABS: Magnesium 2.3 mg/dL (1.6-2.3)
[2023-10-12] MEDS: POTASSIUM CHLORIDE 20 MEQ PACKET (FOR LIQUID) 40 MEQ PO (13:34)
--- NOTE | 2023-10-12 14:06 | PCPTNOTE ---
Attempted physical therapy at this time however was with respiratory therapist performing breathing treatment. Will attempt therapy at a later time.
[2023-10-12] MEDS: TAMSULOSIN HCL 0.4 MG CAPSULE PO (17:15)
[2023-10-12] MEDS: ROSUVASTATIN 10 MG TABLET 40 MG PO (20:55)
[2023-10-13] VITALS (14 sets, daily range): BP systolic 121–136; BP diastolic 59–68; PULSE 71–853; RESP 16–18; TEMP 36.7; O2SAT 90–97
[2023-10-13] MEDS: IPRATROPIUM 0.5 MG/ALBUTEROL SULFATE 2.5 MG AMPUL.NEB 3 ML INHALATION ×2 (02:15→13:27)
[2023-10-13 06:27] LABS: Hematocrit 40.4 % (42.0-52.0); Mean Corpuscular HGB Conc 32.2 g/dl (32-36); Mean Corpuscular Hemoglobin 30.2 pg (26-34); Mean Corpuscular Volume 93.7 fl (80-100); Mean Platelet Volume 10.2 fl (7.4-10.4); Platelet Count Result 196 k/mm3 (150-375); Red Blood Count 4.31 M/mm3 (4.6-6.20); Red Cell Distribution Width 13.4 % (11.5-14.5); White Blood Count 10.7 K/mm3 (4.5-10.0)
[2023-10-13 07:02] LABS: Alanine Aminotransferase 20 U/L (6-50); Albumin Level 3.7 g/dL (3.5-5.1); Alkaline Phosphatase 80 U/L (38-126); Anion Gap 5 mmol/L (8-16); Aspartate Amino Transferase 30 U/L (17-59); Bilirubin,Total 0.6 mg/dL (0.2-1.3); Blood Urea Nitrogen 16 mg/dL (9-20); Calcium 9.1 mg/dL (8.4-10.2); Carbon Dioxide 26 mmol/L (22-30); Chloride 104 mmol/L (98-107); Estimated CRCL calculation 44 ml/min; Estimated Glomerular Filt Rate > 60; Glucose 105 mg/dL (65-110); Potassium 3.9 mmol/L (3.4-5.0); Sodium 135 mmol/L (137-145)
[2023-10-13] MEDS: AZITHROMYCIN 250 MG TABLET 500 MG PO (09:34)
[2023-10-13] MEDS: AMOXICILLIN/CLAVULANATE K 875-125 MG TAB 1 TABLET PO (09:35)
[2023-10-13] MEDS: ASPIRIN 325 MG TABLET PO (09:35)
[2023-10-13] MEDS: guaiFENesin 12 HR 600 MG TABCR PO (09:35)
[2023-10-13] MEDS: DULoxetine HCL 60 MG CAPSULE.DR PO (09:35)
[2023-10-13] MEDS: FOLIC ACID 1 MG TABLET PO (09:35)
[2023-10-13] MEDS: PANTOPRAZOLE 40 MG TABLET PO (09:35)
[2023-10-13] MEDS: VITAMIN B COMPLEX CAPSULE 1 CAP PO (09:35)
[2023-10-13] MEDS: METOPROLOL TARTRATE 25 MG TABLET PO (09:36)
--- NOTE | 2023-10-13 11:53 | HOMEO2EVAL ---
Evaluation was performed at [facility] Home Oxygen Evaluation RC: Home Oxygen (O2) Evaluation Start: 10/13/23 08:10 Freq: ONCE Status: Active Protocol: RPE Activity Type Activity Date Activity User E-sign Co-sign Detail Recorded Client Recorded Date Recorded By Document 10/13/23 11:30 [email or web address] [email or web address] 10/13/23 11:53 KELLY Document 10/13/23 11:33 [email or web address] [email or web address] 10/13/23 11:53 KELLY Document 10/13/23 11:45 [email or web address] [email or web address] 10/13/23 11:53 KELLY 10/13/23 10/13/23 10/13/23 11:30 11:33 11:45 Home O2 Evaluation [Oxygen] -Test Phase Resting Exercise Resting -Oxygen Delivery Room Air Room Air Room Air [Pulse Oximetry] -Pulse Oximetry (90-100 %) 96 94 95 [Pulse Rate] -Pulse Rate (60-100 beats/min) 89 116 H 93 [Comments] -Home Oxygen Evaluation Comments No home O2 needed at this time. [Charges] -Evaluation Charges O2 Evaluation by Pulmonary
--- NOTE | 2023-10-13 11:53 | PCRCNOTE ---
Home O2 eval done, no home o2 needed at this time
--- NOTE | 2023-10-13 13:33 | P.DS_ITS ---
DS: Admitting Diagnosis Discharge Date 10/13/2023 Admitting Diagnosis Sepsis without septic shock secondary to Pneumonia and COPD exacerbation DS: Discharge Diagnosis Discharge Diagnosis (1) Coronary artery disease: Code(s): I25.10 - Atherosclerotic heart disease of [place] coronary artery without angina pectoris Status: Acute (2) COPD (chronic obstructive pulmonary disease): Code(s): J44.9 - Chronic obstructive pulmonary disease, unspecified Status: Acute (3) Pneumonia: Code(s): J18.9 - Pneumonia, unspecified organism Status: Acute (4) Sepsis without septic shock: Code(s): A41.9 - Sepsis, unspecified organism Status: Acute Plan Sepsis without septic shock secondary to pneumonia and COPD exacerbation- IMPROVING * RR 40, WBC 23, Tachycardia, PNA on CTA * empiric IV antibiotic therapy/Augmentin and azithromycin * Monitor lactic acid levels q6hr. * Repeat CBC, CMP. * Two sets of blood cultures pending * urine cultures. No growth to date * C-reactive proteins elevated * procalcitonin level. WNL * 10/11: * WBC trending down Pneumonia * Bronchodilators. * Chest x-ray * incentive spirometry while awake. * influenza/COVID/RSV negative * Augmentin/azithromycin * Guaifenesin * supplemental oxygen therapy to maintain oxygen 92% * Smoking cessation counseling done * CMP/CBC daily * 10/11: * WBC improving * BC with NGTD HTN * BP soft this time * Will resume medications once reconciled patient previously taking metoprolol * 10/11: * BP improved now with mild HTN will resume home medication of BB COPD * Bronchodilators. * Chest x-ray * incentive spirometry while awake. * azithromycin 500 x 1 day/250 daily * supplemental oxygen therapy to maintain oxygen 92% * Evaluation from home O2 if saturation less than 88% on room air. * Smoking cessation counseling done * Follow-up with die repair as an outpatient CAD * cardiac arrest 2014 * ICD in place * Run of [employer] 10/11 * Mag/K+ in range continue to monitor * cardiac monitoring * Echo pending BPH * stable * monitor output * resumed flomax Disposition: Patient was discharged to home with home health for continued PT/OT DS: Summary Hospital Course Reason for hospitalization: Sepsis without septic shock secondary to pneumonia and COPD exacerbation Hospital Course: Patient was a 78 year old male who presented to the ED with complaints of worsening shortness of breath and generalized weakness. Patient has a past medical history of COPD, CAD, previous cardiac arrest with implanted ICD. CXR showed opacities and a WBC of 23 with tachycardia and tachypnea. Patient was started on Augmentin and azithromycin, Duonebs, a mucolytic, and incentive spirometer and placed on supplemental oxygen for hypoxia. 10/10: Patient assessed in bed, family at bedside reports? continued generalized weakness and SOB.? Patient does have a history of COPD and is an everyday smoker.? WBC slowly trending down, NA 131 today secondary to dehydration.? No other complaints at this time family did report decrease in gait and cognition.? PT/pending for evaluation.? Continue with current treatment plan for PNA/COPD. 10/11: Patient WBC trending down remains on RA, BC with NGTD.? Patient states he feels a little better today.? Patient did have a run of VTAch, mag WNL and echo pending, patient already has ICD in place will continue with teleme
--- NOTE | 2023-10-13 13:33 | PM.DS ---
DS: Admitting Diagnosis Discharge Date 10/13/2023 Admitting Diagnosis Sepsis without septic shock secondary to Pneumonia and COPD exacerbation DS: Discharge Diagnosis Discharge Diagnosis (1) Coronary artery disease: Code(s): I25.10 - Atherosclerotic heart disease of [place] coronary artery without angina pectoris Status: Acute (2) COPD (chronic obstructive pulmonary disease): Code(s): J44.9 - Chronic obstructive pulmonary disease, unspecified Status: Acute (3) Pneumonia: Code(s): J18.9 - Pneumonia, unspecified organism Status: Acute (4) Sepsis without septic shock: Code(s): A41.9 - Sepsis, unspecified organism Status: Acute Plan Sepsis without septic shock secondary to pneumonia and COPD exacerbation-IMPROVING RR 40, WBC 23, Tachycardia, PNA on CTA empiric IV antibiotic therapy/Augmentin and azithromycin Monitor lactic acid levels q6hr. Repeat CBC, CMP. Two sets of blood cultures pending urine cultures. No growth to date C-reactive proteins elevated procalcitonin level. WNL 10/11: WBC trending down Pneumonia Bronchodilators. Chest x-ray incentive spirometry while awake. influenza/COVID/RSV negative Augmentin/azithromycin Guaifenesin supplemental oxygen therapy to maintain oxygen 92% Smoking cessation counseling done CMP/CBC daily 10/11: WBC improving BC with NGTD HTN BP soft this time Will resume medications once reconciled patient previously taking metoprolol 10/11: BP improved now with mild HTN will resume home medication of BB COPD Bronchodilators. Chest x-ray incentive spirometry while awake. azithromycin 500 x 1 day/250 daily supplemental oxygen therapy to maintain oxygen 92% Evaluation from home O2 if saturation less than 88% on room air. Smoking cessation counseling done Follow-up with hydrogeology professor as an outpatient CAD cardiac arrest [address] Run of [facility] 10/11 Mag/K+ in range continue to monitor cardiac monitoring Echo pending BPH stable monitor output resumed flomax Disposition: Patient was discharged to home with home health for continued PT/OT DS: Summary Hospital Course Reason for hospitalization: Sepsis without septic shock secondary to pneumonia and COPD exacerbation Hospital Course: Patient was a 78 year old male who presented to the ED with complaints of worsening shortness of breath and generalized weakness. Patient has a past medical history of COPD, CAD, previous cardiac arrest with implanted ICD. CXR showed opacities and a WBC of 23 with tachycardia and tachypnea. Patient was started on Augmentin and azithromycin, Duonebs, a mucolytic, and incentive spirometer and placed on supplemental oxygen for hypoxia. 10/10: Patient assessed in bed, family at bedside reports? continued generalized weakness and SOB.? Patient does have a history of COPD and is an everyday smoker.? WBC slowly trending down, NA 131 today secondary to dehydration.? No other complaints at this time family did report decrease in gait and cognition.? PT/pending for evaluation.? Continue with current treatment plan for PNA/COPD. 10/11: Patient WBC trending down remains on RA, BC with NGTD.? Patient states he feels a little better today.? Patient did have a run of VTAch, mag WNL and echo pending, patient already has ICD in place will continue with telemetry monitoring.? Will need to attempt to wean oxygen may need home O2 evaluation prior to discharge. 10/12: DISCHARGED Patient overall improved remained afebrile and with a normal wbc. Patiet was weaned from oxygen and 6 min stress walk showed no need for oxygen at home. I did recommend referral to pulmonolgist o/p for further evaluation and treatment of patient chronic COPD. Patient also agreed to home health for continued PT/OT at home. Patient discharged to home with family and home health patient understood to complete a
== END 2023-10-13 14:15 | disposition home health service (06) | DRG 871 ==
LOC: ANHED 23:16 → ANH3MEDSUR 10-11 00:26
PROVIDERS: Nurse Practitioner Family; Admitting Provider Internal Medicine; Emergency Provider Emergency Medicine; PCP Physician Assistant; Visit Provider Internal Medicine
DX: A41.9 Sepsis, unspecified organism (principal); J18.9 Pneumonia, unspecified organism; J44.0 Chronic obstructive pulmonary disease with (acute) lower respiratory infection; J44.1 Chronic obstructive pulmonary disease with (acute) exacerbation; I47.20 Ventricular tachycardia, unspecified; I25.10 Atherosclerotic heart disease of native coronary artery without angina pectoris; Z20.822 Contact with and (suspected) exposure to COVID-19; I10 Essential (primary) hypertension; N40.0 Benign prostatic hyperplasia without lower urinary tract symptoms; E86.0 Dehydration; I50.9 Heart failure, unspecified; F17.210 Nicotine dependence, cigarettes, uncomplicated; I25.2 Old myocardial infarction; Z95.810 Presence of automatic (implantable) cardiac defibrillator; Z95.5 Presence of coronary angioplasty implant and graft
CPT/HCPCS: 36415; 36600; 71045; 71275; 80053; 82805; 83036; 83605; 83735; 84145; 84484; 85025; 85027; 86140; 87040; 87637; 93005; 94618; 94640; 96365; 96367; 97110; 97116; 97161; 97165; 97530; 99285; A9270; C8929; G0378; J0456; J0696; Q9957; Q9967

== ENCOUNTER → 2023-11-07 08:13 | Outpatient (CLI) | payer MEDICARE, SELFPAY ==
--- NOTE | ~2023-11-07 | XR_ITS ---
Clinical Indication: Pneumonia PA and lateral views of the chest: Comparison: 10/10/2023 Findings: The lungs are clear, without evidence of focal consolidation or pleural effusion. Cardiome diastinal silhouette is within normal limits. Bones and soft tissues are unremarkable. Impression: Clear lungs. Reviewed, dictated and finalized at location . Impression: Clear lungs.
== END ==
PROVIDERS: PCP Physician Assistant; Visit Provider Physician Assistant
DX: Z09 Encounter for follow-up examination after completed treatment for conditions other than malignant neoplasm (principal)
CPT/HCPCS: 71046

== ENCOUNTER 2023-11-29 09:32 | Inpatient (IN) | payer MEDICARE, SELFPAY ==
[2023-11-29] VITALS (15 sets, daily range): BP systolic 127–141; BP diastolic 62–78; PULSE 76–94; RESP 14–24; TEMP 36.2–36.9; O2SAT 93–100; BMI 22.5
--- NOTE | ~2023-11-29 | XR_ITS ---
EXAMINATION: XR chest 2V DATE: 11/29/2023 10:06 INDICATION: Dyspnea, cough, chest pain and irregular heartbeat TECHNIQUE: PA and lateral views of the chest were obtained. COMPARISON: Chest radiograph dated 11/07/23 and chest radiograph and CT dated 10/10/2023 FINDINGS: Moderate biapical pleural-parenchymal scarring. Unchanged blunting at the left costophrenic angle and posterior sulcus which on CT appears to result from pleural parenchymal scarring rather than small p leural effusion. No other airspace opacities, pulmonary edema, pneumothorax or right pleural effusion . The cardiomediastinal silhouette is normal. Visualized bones and soft tissues are unremarkable. IMPRESSION: 1. Biapical pleural-parenchymal scarring and chronic blunting at the left costophrenic angle and post erior sulcus and favor additional pleural parenchymal scarring over small left pleural effusion. Reviewed, dictated and finalized at location A. IMPRESSION: 1. Biapical pleural-parenchymal scarring and chronic blunting at the left costo phrenic angle and posterior sulcus and favor additional pleural parenchymal sca rring over small left pleural effusion.
--- NOTE | ~2023-11-29 | XR_ITS ---
XR chest 1V portable 12/01/2023 08:09 Indication: Pneumonia Procedure: AP portable chest Comparison: Comparison to multiple prior studies sequentially, with oldest reviewed study dated 11/21. Findings: Heart size normal. No focal air space disease, pulmonary edema, pleural effusion or suspect ed pneumothorax. Impression: 1: No acute cardiopulmonary disease. Reviewed, dictated and finalized at location B. Impression: 1: No acute cardiopulmonary disease.
--- NOTE | ~2023-11-29 | NM_ITS ---
EXAMINATION: NM susi stress w perfusion DATE: 12/01/2023 11:58 INDICATION: Atypical chest pain. Dyspnea on exertion. TECHNIQUE: Rest images were obtained following intravenous administration of 9.6 mCi Tc99m tetrofosmi n (Myoview). The patient was infused intravenously with Lexiscan (regadenoson). Then, 30.4 mCi Tc99m tetrofosmin (Myoview) was administered intravenously, and stress images were obtained. Data was recon structed into short axis and horizontal and vertical long axis SPECT images. Gated SPECT images were also obtained. COMPARISON: Chest CT 11/29/2023 FINDINGS: There is a small, mild, fixed perfusion defect involving mid to basal inferolateral segment s of left ventricle, consistent with infarcts. No reversible component to suggest ischemia. There is no segmental wall motion abnormality. Left ventricular ejection fraction measures 51%. IMPRESSION: 1. Small area of mild infarct involving mid to basal inferolateral segments of left ventricle. 2. Normal left ventricular ejection fraction measuring 51%. Reviewed, dictated and finalized at location A.
--- NOTE | ~2023-11-29 | CT_ITS ---
EXAMINATION: CTA chest PE protocol DATE: 11/29/2023 15:15 INDICATION: Dyspnea. Chest pain. TECHNIQUE: Computed tomography angiography (CTA) of the chest was performed with 100 mL Omnipaque-350 intravenous contrast timed to evaluate the pulmonary arteries. Coronal maximum intensity projection 3D-reconstructions were created by the technologist. Automated exposure control and iterative reconst ruction technique were employed. The dose-length product was 269.32 mGy-cm. COMPARISON: Chest CT 10/10/2023, 02/05/22 FINDINGS: There is mild emphysema. There is mild scarring lung apices. There is mild atelectasis bila terally. There are tree-in-bud opacities in right lower lobe, consistent with pneumonia. There is a 7 mm nodule in right upper lobe, increased from 4 mm on 02/05/22. No pleural effusion. There is mild rashid ateral gynecomastia. The heart size is normal. There are coronary artery calcifications. No pericardi al effusion. Partially visualized is a stent graft in abdominal aorta. There is mild thoracic spondyl osis. IMPRESSION: 1. No pulmonary embolus. 2. Mild right lower lobe pneumonia. 3. Mild emphysema. 4. 7 mm right upper lobe pulmonary nodule suspicious for primary bronchogenic carcinoma. Noncontrast low-dose chest CT is recommended in 3 months. Reviewed, dictated and finalized at location E. IMPRESSION: 1. No pulmonary embolus. 2. Mild right lower lobe pneumonia. 3. Mild emphysema. 4. 7 mm right upper lobe pulmonary nodule suspicious for primary bronchogenic c arcinoma. Noncontrast low-dose chest CT is recommended in 3 months.
--- NOTE | 2023-11-29 09:37 | ECG_ITS ---
SEE SCANNED COPY FOR CONFIRMED REPORT MTDD
[2023-11-29 09:58] LABS: Basophils Percent Auto 0.2 % (0.2-1.2); Eosinophils Absolute Auto 0.1 K/mm3 (0-0.3); Eosinophils Percent Auto 0.7 % (0-4.4); Hematocrit 41.6 % (42.0-52.0); Hemoglobin 13.7 g/dL (14.0-18.0); Immature Granulocyte Absolute 0.06 K/mm3 (0.00-0.031); Immature Granulocyte Percent A 0.4 % (0-0.5); Lymphocytes Absolute Auto 0.77 K/mm3 (0.9-3.2); Lymphocytes Percent Auto 5.1 % (18.3-44.2); Mean Corpuscular HGB Conc 32.9 g/dl (32-36); Mean Corpuscular Hemoglobin 30.6 pg (26-34); Mean Corpuscular Volume 93.1 fl (80-100); Monocytes Absolute Auto 0.9 K/mm3 (0.1-0.6); Neutrophils Absolute Auto 13.3 K/mm3 (1.3-6.7); Neutrophils Percent Auto 87.6 % (45.5-73.1); Platelet Count Result 205 k/mm3 (150-375); Red Blood Count 4.47 M/mm3 (4.6-6.20); Red Cell Distribution Width 14.7 % (11.5-14.5); White Blood Count 15.2 K/mm3 (4.5-10.0)
[2023-11-29 10:11] LABS: Alanine Aminotransferase 24 U/L (6-50); Albumin Level 4.3 g/dL (3.5-5.1); Alkaline Phosphatase 82 U/L (38-126); Anion Gap 8 mmol/L (4-12); Aspartate Amino Transferase 29 U/L (17-59); Bilirubin,Total 0.9 mg/dL (0.2-1.3); Blood Urea Nitrogen 12 mg/dL (9-20); Calcium 9.6 mg/dL (8.4-10.2); Carbon Dioxide 25 mmol/L (22-30); Chloride 101 mmol/L (98-107); Estimated CRCL calculation 42 ml/min; Estimated Glomerular Filt Rate 58; Glucose 145 mg/dL (65-110); Potassium 3.5 mmol/L (3.4-5.0); Sodium 134 mmol/L (137-145)
--- NOTE | 2023-11-29 13:23 | ED.SOB ---
HPI - SOB/Dyspnea General Chief Complaint: Shortness of Breath/Dyspnea <Jasen Scott PA-C - Last Filed: 11/29/23 13:29> Stated Complaint: sent by PCP <Jasen Scott PA-C - Last Filed: 11/29/23 13:29> Time Seen by Provider: 11/29/23 13:23 <Jasen Scott PA-C - Last Filed: 11/29/23 13:29> Focused HPI: this is a 78-year-old male with history of COPD, CAD, multiple stent placements who presents to the ED for chief complaint of dyspnea on exertion for the past several days. Reports it is difficult , for example, to get through the store without becoming very winded. he states that he eventually started to have some left-sided pleuritic chest pain with exertion as well. Denies diaphoresis, syncope, vomiting. Reports being admitted to the hospital recently for double pneumonia in his primary was concerned that he may have COPD exacerbation. not complaint with inhalers on a daily basis GENERAL: Well-appearing, well-nourished, and in no acute distress. HEAD: Normocephalic, atraumatic. CHEST: Clear to auscultation. ?No respiratory distress. 94% room air. Bilateral mild wheezes heard throughout. HEART: Regular rate and rhythm.? NEURO: ?Alert and oriented x3. Patient screened in triage and initial orders placed.? ?Additional care and disposition to be based upon?diagnostic testing and treatment. <Jasen Scott PA-C - Last Filed: 11/29/23 13:29> History of Present Illness HPI Narrative: Agree with the above with the following additions: Patient states his blood pressure was systolic 170 at home and he had a heart rate of 100. 9 total stents (4 cardiac [2 placed by kitchen steward/stewardess Dr [place]), 3 in abdomen for anuerysm, and 1 each in bilateral lower extremities for peripheral vascular disease). He has been short of breath and has a cough. not on home O2. Recently required hospitalization for 4 days for pneumonia. <Isatu Gonzalez MD - Last Filed: 11/30/23 06:13> Related Data Home Medications: Home Medications Medication Instructions Recorded Confirmed Claritin 10 mg PO AC PRN Allergy Symptoms 08/04/19 11/29/23 albuterol sulfate 90 mcg inhalation Q4HWA PRN 08/04/19 11/29/23 Shortness Of Breath rosuvastatin 20 mg tablet 40 mg PO HS 08/04/19 11/29/23 aspirin 325 mg tablet 325 mg PO DAILY 10/11/23 11/29/23 duloxetine 60 mg capsule,delayed 60 mg PO DAILY 10/11/23 11/29/23 release finasteride 5 mg PO DAILY 10/11/23 11/29/23 folic acid 800 mcg PO DAILY 10/11/23 11/29/23 metoprolol tartrate 50 mg tablet 25 mg PO BID 10/11/23 11/29/23 tamsulosin 0.4 mg capsule 0.4 mg PO QPM 10/11/23 11/29/23 vitamin B complex 1,000 tablet PO QAM 10/11/23 11/29/23 <Jasen Scott PA-C - Last Filed: 11/29/23 13:29> Allergies/Adverse Reactions: Allergies Allergy/AdvReac Type Severity Reaction Status Date / Time lisinopril Allergy Mild Swelling Verified 12/20/22 05:40 <ABDIEL Mcfarlane Last Filed: 11/29/23 13:29> [facility] Past Medical History Medical History: Medical History (Updated 11/30/23 @ 06:13 by Isatu Gonzalez MD) Anxiety Bilateral cataracts Bronchitis COPD (chronic obstructive pulmonary disease) Coronary artery disease Depression Emphysema (subcutaneous) (surgical) resulting from a procedure Hypercholesterolemia Hypertension Myocardial infarction Cardiac arrest September 2014, 2 stents placed Peripheral vascular disease s/p bilateral lower extremity stents Presence of combination internal cardiac defibrillator (ICD) and pacemaker Urinary tract infection <Jasen Scott PA-C - Last Filed: 11/29/23 13:29> Surgical History Surgical History: Surgical History (Updated 11/30/23 @ 06:04 by Isatu Gonzalez MD) History of heart artery stent x4 Hx of endovascular stent graft for abdominal aortic aneurysm x3 <ABDIEL Mcfarlane Last Filed: 11/29/23 13:29> Social History Social History: Social History (Reviewed 11/29/23 @ 21:59 by Flower Najera
[2023-11-29] MEDS: ALBUTEROL SULFATE NEB 2.5 MG/3 ML INH 10 MG INHALATION (13:35)
[2023-11-29] MEDS: IPRATROPIUM BR 0.02% INH SOLN 0.5 MG/2.5 ML VIAL 1 MG INHALATION (13:35)
[2023-11-29 14:07] LABS: Creatine Kinase 123 U/L (55-170); Magnesium 2.3 mg/dL (1.6-2.3)
[2023-11-29 14:12] LABS: Troponin I 0.075 ng/mL (0.000-0.034)
[2023-11-29 14:47] LABS: Influenza A QL RT-PCR Negative (Negative); Influenza B QL RT-PCR Negative (Negative); RSV RNA, RT-PCR Negative (Negative); SARS-CoV-2 RNA PCR Negative (Negative)
--- NOTE | 2023-11-29 14:51 | PC.NURSE ---
patient states that he took 325mg aspirin at home this morning.
[2023-11-29 17:16] LABS: Troponin I 0.087 ng/mL (0.000-0.034)
--- NOTE | 2023-11-29 17:20 | PM.IMHP ---
H&P: HPI History of Present Illness Date/Time: 11/29/23 19:30 Chief Complaint: SOB Narrative: 78 y/o M presents here with shortness of breath, LE discomfort, and HTN with PMH of COPD, CAD (multiple stents previously placed, 4), HLD, HTN, [place] (w/cardiac arrest and 2 stents placed, 2014), ICD/pacemaker in place, and anxiety/depression. Patient presented here from home for further evaluation of shortness of breath for the past week. Shortness of breath worsens with exertion and alleviated with supplemental oxygen, but nothing at home. Has since developed left sided chest wall/pleuritic discomfort near left axilla that occurs with tachypnea. Denies midsternal chest pain, diaphoresis, nausea, jaw pain, UE pain, or syncope. Endorsing fatigue, cough productive cough, and intermittent chills. Cough yielding white/foamy sputum. Smoking history: 1 PPD x 62 years. Denies any new night sweats or unintentional weight loss. Lives at home alone, does not have help with home or his healthcare. Patient is poor historian. Initial VS at presentation: 98.2? F, HR 76, RR 14, 137/75, and 94% on RA. ED workup showed: WBC 15.2, stable anemia, sodium 134, creatinine 1.2 and GFR 58, glucose 145, initial troponin 0.075, and viral PCR negative. CXR showed chronic findings and a small left pleural effusion. Chest CTA showed no PE, mild right lower lobe pneumonia, mild emphysema, and a 7 mm right upper lobe pulmonary nodule. Review of Systems Review of Systems: All systems reviewed & are unremarkable except as noted in HPI and below [facility] Past Medical History Medical History Anxiety Bilateral cataracts Bronchitis COPD (chronic obstructive pulmonary disease) Coronary artery disease Depression Emphysema (subcutaneous) (surgical) resulting from a procedure Hypercholesterolemia Hypertension Myocardial infarction Cardiac arrest September 2014, 2 stents placed Presence of combination internal cardiac defibrillator (ICD) and pacemaker Urinary tract infection Social History Social History Smoking packs per day: 1 Smoking cigarettes per day: 20.0 Years smoked: 65 Smoking pack-years: 65.00 Smoking status: Current every day smoker Tobacco type: cigarettes Additional smoking assessment comments: Patient states that he smokes but doesn't inhale . Alcohol intake: never Substance use: never Substance use type: does not use Do You Feel Safe in your Home?: Yes Lack of Transportation: YES Lack of Food: Never True Current Housing: I Have Housing Concerned About Future Housing: No Difficulty Paying Gas/Electric Bills: No Difficulty Paying for Meds: No Currently Unemployed: No Education: Associate Degree Difficulty w/ Childcare or Family Care: No Gender identity (if verbalized by the patient): Male Spiritual care concerns: No Meds Home Medications and Allergies Home Medications Medication Instructions Recorded Confirmed Type Claritin 10 mg PO AC PRN Allergy Symptoms 08/04/19 11/29/23 History albuterol sulfate 90 mcg inhalation Q4HWA PRN 08/04/19 11/29/23 History Shortness Of Breath rosuvastatin 20 mg tablet 40 mg PO HS 08/04/19 11/29/23 History aspirin 325 mg tablet 325 mg PO DAILY 10/11/23 11/29/23 History duloxetine 60 mg capsule,delayed 60 mg PO DAILY 10/11/23 11/29/23 History release finasteride 5 mg PO DAILY 10/11/23 11/29/23 History folic acid 800 mcg PO DAILY 10/11/23 11/29/23 History metoprolol tartrate 50 mg tablet 25 mg PO BID 10/11/23 11/29/23 History tamsulosin 0.4 mg capsule 0.4 mg PO QPM 10/11/23 11/29/23 History vitamin B complex 1,000 tablet PO QAM 10/11/23 11/29/23 History Allergies Allergy/AdvReac Type Severity Reaction Status Date / Time lisinopril Allergy Mild Swelling Verified 12/20/22 05:40 Vital Signs Vital Signs - 24 hr 11/29/23 09:33 11/29/23 13:38 11/29/23 1
[2023-11-29] MEDS: AZITHROMYCIN 250 MG TABLET 500 MG PO (17:33)
--- NOTE | 2023-11-29 18:43 | PC.NURSE ---
arrived to the floor via wheel chair from the ER at approximately 1810pm. No acute distress noted at this time. Denies chest pain or discomfort. Denies generalized pain. VSS at this time. Family at bedside upon arrival to the floor.
[2023-11-29] MEDS: predniSONE 20 MG TABLET 40 MG PO (21:08)
[2023-11-29] MEDS: levoFLOXacin 750 MG/D5W 150 ML 750 MG/150 ML BAG 100 MG IVPB (21:08)
[2023-11-30] VITALS (23 sets, daily range): BP systolic 116–146; BP diastolic 46–74; PULSE 79–116; RESP 16–28; TEMP 35.5–36.9; O2SAT 92–100
[2023-11-30 04:31] LABS: Basophils Percent Auto 0.1 % (0.2-1.2); Hematocrit 40.3 % (42.0-52.0); Hemoglobin 13.2 g/dL (14.0-18.0); Immature Granulocyte Absolute 0.03 K/mm3 (0.00-0.031); Immature Granulocyte Percent A 0.3 % (0-0.5); Lymphocytes Absolute Auto 0.29 K/mm3 (0.9-3.2); Lymphocytes Percent Auto 3.2 % (18.3-44.2); Mean Corpuscular HGB Conc 32.8 g/dl (32-36); Mean Corpuscular Hemoglobin 30.2 pg (26-34); Mean Corpuscular Volume 92.2 fl (80-100); Mean Platelet Volume 10.1 fl (7.4-10.4); Monocytes Absolute Auto 0.1 K/mm3 (0.1-0.6); Monocytes Percent Auto 1.3 % (2.6-8.5); Neutrophils Absolute Auto 8.7 K/mm3 (1.3-6.7); Neutrophils Percent Auto 95.1 % (45.5-73.1); Platelet Count Result 211 k/mm3 (150-375); Red Blood Count 4.37 M/mm3 (4.6-6.20); Red Cell Distribution Width 14.5 % (11.5-14.5); White Blood Count 9.1 K/mm3 (4.5-10.0)
[2023-11-30 04:47] LABS: Alanine Aminotransferase 22 U/L (6-50); Alkaline Phosphatase 94 U/L (38-126); Anion Gap 6 mmol/L (4-12); Aspartate Amino Transferase 28 U/L (17-59); Bilirubin,Total 0.6 mg/dL (0.2-1.3); Blood Urea Nitrogen 12 mg/dL (9-20); Calcium 9.3 mg/dL (8.4-10.2); Carbon Dioxide 23 mmol/L (22-30); Chloride 104 mmol/L (98-107); Estimated CRCL calculation 48 ml/min; Estimated Glomerular Filt Rate > 60; Glucose 133 mg/dL (65-110); Sodium 133 mmol/L (137-145)
[2023-11-30] MEDS: ASPIRIN 325 MG TABLET PO (09:44)
[2023-11-30] MEDS: METOPROLOL TARTRATE 25 MG TABLET PO ×2 (09:44→20:42)
[2023-11-30] MEDS: FOLIC ACID 1 MG TABLET PO (09:44)
[2023-11-30] MEDS: VITAMIN B COMPLEX CAPSULE 1 CAP PO (09:44)
[2023-11-30] MEDS: DULoxetine HCL 60 MG CAPSULE.DR PO (09:45)
[2023-11-30] MEDS: FINASTERIDE 5 MG TABLET PO (09:45)
[2023-11-30] MEDS: predniSONE 20 MG TABLET 40 MG PO (09:46)
--- NOTE | 2023-11-30 10:11 | PM.CNCAR ---
Assessment and Plan Assessment and plan (1) Elevated troponin: Code(s): R79.89 - Other specified abnormal findings of blood chemistry Status: Acute Assessment and Plan: Troponin of 0.075, 0.087. Previous troponin levels in our system were negative. EKG with sinus rhythm, nonspecific T-wave abnormality, no ischemic changes. Has known CAD. His chest pain is pleuritic and occurs with coughing. He does have exertional shortness of breath, which could also be from his pneumonia/COPD. Given the exertional shortness of breath, mildly elevated troponin levels (although flat), will obtain nuclear stress test for further evaluation. (2) Pneumonia: Qualifiers: Laterality: right Lung location: lower lobe of lung Code(s): J18.9 - Pneumonia, unspecified organism Status: Acute Assessment and Plan: Management as per primary team. (3) Pulmonary nodule: Code(s): R91.1 - Solitary pulmonary nodule Status: Acute Assessment and Plan: Chest CTA shows 7mm RUL nodule concerning for bronchogenic carcinoma. The nodule has increased in size from 4mm on 02/05/2022. He does report intermittent night sweats, some unintentional weight loss (although not able to really clarify the details regarding weight loss). Ongoing smoker. Given the concerns for malignant nodule, I will consult Dr. Powell with Pulmonary to see if additional workup needs to be done regarding this. (4) Hypertension: Code(s): I10 - Essential (primary) hypertension Status: Acute Assessment and Plan: Stable. Continue Metoprolol (5) Coronary artery disease: Code(s): I25.10 - Atherosclerotic heart disease of [place] coronary artery without angina pectoris Status: Acute Assessment and Plan: Continue ASA, statin, beta thor (6) Tobacco dependence: Code(s): F17.200 - Nicotine dependence, unspecified, uncomplicated Status: Acute Assessment and Plan: Encouraged cessation, however, the patient does not appear to want to quit. History of Present Illness History of Present Illness Consult date/time: 11/30/23 10:11 Requesting physician: Flower Verduzco APRN Consult reason: Other (Elevated troponins) Reason For Visit: NSTEMI, PNA Narrative: We are consulted for elevated troponin. This is a 78 year old patient of Dr. Kerr'nurys who has coronary artery disease s/p PCI to the LAD in 1994, PCI to OM in 2014, peripheral vascular disease (abdominal aortic aneurysm along with high-grade heavily calcified common iliac artery stenosis s/p [place] excluder EVAR with kissing common iliac artery stent angioplasty on 12/14/2022), COPD, tobacco dependence who presented with progressive shortness of breath. Patient states he has had exertional shortness of breath since his hospitalization in October 2023 for pneumonia, however, has had worsening shortness of breath with exertion over past few days. Patient saw Dr. Kerr in clinic on Monday this week and was feeling well at that time, however, reports that his symptoms began later in the evening. Has left-sided chest pain that occurs with coughing. No exertional chest pain. Family member states that when patient was in the ER yesterday, he had walked outside for a bit to smoke. ER workup shows WBC of 15.2. Troponins are 0.075, 0.087. EKGs with sinus rhythm, nonspecific T wave abnormality. CXR with biapical pleural-parenchymal scarring and chronic blunting at the left costophrenic angle and posterior sulcus. Chest CTA is negative for PE, shows mild right lower lobe pneumonia, mild emphysema and a 7mm RUL nodule concerning for bronchogenic carcinoma. He has been admitted for further evaluation and management. Started on Levaquin for his pneumonia. Patient reports he has been having intermittent nights sweats, unintentional weight loss. History was also obtained from family members who were at bedside. Review of Systems Review of Systems: All systems review
--- NOTE | 2023-11-30 11:40 | PM.CNPUL ---
Assessment and Plan Assessment and plan (1) COPD exacerbation: Code(s): J44.1 - Chronic obstructive pulmonary disease with (acute) exacerbation Status: Acute Assessment and Plan: Patient with a 62 pack year tobacco use, currently smoking, PFTs 10 years ago and was told he had moderate disease, worsening dyspnea on exertion, CT scan with mild apical predominant centrilobular emphysema. prior ABG on 10/10/2023 when he is admitted for pneumonia was 7.40/36/89 on CPAP 5 and 60%. Current serum bicarbonate is 25 and 23. Patient currently presents with 2 weeks increased cough and phlegm production and 2 days worsening shortness of breath. he was noted to have mild wheezing in the emergency department. I believe he does have a COPD exacerbation. 11/30/23: Plan: Agree with prednisone 40 mg p.o. q.day, started 11/28. I will start the patient on albuterol and ipratropium nebulizers q.4 hours. Patient is being treated for pneumonia with levofloxacin. Currently is on room air with saturations 94%. Goal saturation 90-94%. I will check a room air arterial blood gas to exclude hypercarbia. I will check an alpha 1 anti trypsin genotype and level. Will follow with you. (2) Pneumonia: Qualifiers: Laterality: right Lung location: lower lobe of lung Code(s): J18.9 - Pneumonia, unspecified organism Status: Acute Assessment and Plan: The patient has new right lower lobe tree-in-bud infiltrates since 10/10/2023. He presented with leukocytosis. Agree with treatment for pneumonia. MRSA swab negative on 10/10/2023. COVID, RSV and influenza RT PCR study negative for 24. Blood culture and sputum cultures pending. Initially treated with ceftriaxone and azithromycin and switch to levofloxacin. Plan: Patient is afebrile, leukocytosis has improved. I will send urine Legionella, urine pneumococcal and mycoplasma IgM. I will send a respiratory pathogen panel. will continue levofloxacin at this time. (3) Pulmonary nodule: Code(s): R91.1 - Solitary pulmonary nodule Status: Acute Assessment and Plan: Patient has Sixty-two pack year tobacco use, mild emphysema on a CT scan and a right upper lobe 7 mm nodule that is increased from 4 mm on 02/05/2022. Plan: Will treat patient for pneumonia and COPD exacerbation at this time. will repeat CT scan as an outpatient in 3 months. History of Present Illness History of Present Illness Consult date: 11/30/23 Chief complaint: NSTEMI, PNA Narrative: 11/30/2023: This is a new pulmonary consult for pneumonia and lung nodule. 78-year-old with a history of coronary artery disease status post ID, AICD and 4 stents, peripheral vascular disease status post abdominal stent and each leg 1 stent, tobacco use, COPD. Regarding patient's COPD tells me he was diagnosed 10 years ago with PFTs and he was told he had moderate disease. He was given inhalers at that time but never really use them. Approximately 1 year ago he noticed dyspnea on exertion and intermittent wheezing. One year ago he told me he could walk 2 miles. Recently he has limited in his walking because of shortness of breath as well as bilateral leg pain. He also states he gets short of breath if he talks too much. He says that he was given a new inhaler by his PCP and was taking 2 puffs in the morning in the afternoon and not using any recent rescue albuterol. He does not know the name of his maintenance inhaler. Patient was admitted to the hospital from 10/10/2023 through 10/13/2023 with sepsis, pneumonia and discharged on Augmentin and azithromycin and p.r.n. albuterol. He had a home O2 assessment with rest room air saturation 96%. End exercise room air saturation 94%. The patient tells me he got home and completed his Augmentin and azithromycin and was returning back to his baseline. He says he recovered back to 80% of his normal. Patient is a current smoker at 1 pack
--- NOTE | 2023-11-30 12:45 | PM.IMPN ---
Progress Note: A&P Assessment and Plan (1) Pulmonary nodule: Code(s): R91.1 - Solitary pulmonary nodule Status: Acute (2) Abnormal chest CT: Code(s): R93.89 - Abnormal findings on diagnostic imaging of other specified body structures Status: Acute (3) Hypertension: Code(s): I10 - Essential (primary) hypertension Status: Acute (4) Elevated troponin: Code(s): R79.89 - Other specified abnormal findings of blood chemistry Status: Acute Plan 78 y/o M with PMH of COPD, CAD (multiple stents previously placed, 4), HLD, HTN, [place] (w/cardiac arrest and 2 stents placed, 2015), ICD/pacemaker in place, and anxiety/depression presented here from home for further evaluation of shortness of breath for the past week.Chest CTA showed no PE, mild right lower lobe pneumonia, mild emphysema, and a 7 mm right upper lobe pulmonary nodule. 1. Lower lobe pneumonia+ pulmonary nodule: Currently on room air Tested negative for COVID, influenza, RSV Leukocytosis has resolved Await pulmonary consult Continue with short course of steroid Continue with levofloxacin Continue with bronchodilators Will defer to pulmonology for pulmonary nodule 2. Elevated troponin: Appreciate cardiology help Continue with aspirin, statin, beta-thor with history of coronary artery disease Plan for stress test tomorrow morning 3. DVT prophylaxis: Heparin subQ 4. Code status: Modified 5. Disposition: Pending improvement Time Spent With Patient Time with patient: 25 - 35 minutes Subjective Date/time seen: 11/30/23 12:45 Interval history: No acute events overnight Review of Systems Review of Systems: All systems reviewed & are unremarkable except as noted in HPI and below Exam Narrative: Const: General: comfortable and no acute distress Other: , male, elderly HENMT: Face/Nose/Sinus: Normal nares present Mouth: Yes moist mucous membranes Eyes: Sclera: sclerae normal Neck: Neck: supple Resp: Effort & Inspection: normal respiratory effort Other: no crackles, faint expiratory wheeze. Cardio: Rate: regular rate Rhythm: regular rhythm Other: No murmur or ectopy. Skin: General skin exam: normal color Neuro: Speech: normal speech Other: A/Ox self, place. Extrem: General: normal to inspection Psych: Other: Fair to poor insight and judgment at present. Objective Data Vital Signs Vital Signs: Vital Signs - 24 hr 11/29/23 13:38 11/29/23 14:36 11/29/23 14:30 Temperature Pulse Rate 77 82 82 Respiratory Rate 24 H 24 H 22 H Blood Pressure 133/71 Pulse Oximetry 100 Oxygen Delivery Fraction of Inspired Oxygen 11/29/23 14:45 11/29/23 15:00 11/29/23 14:00 Temperature Pulse Rate 84 85 76 Respiratory Rate 20 18 22 H Blood Pressure 134/66 130/64 130/69 Pulse Oximetry 96 96 100 Oxygen Delivery Fraction of Inspired Oxygen 11/29/23 16:25 11/29/23 14:20 11/29/23 17:37 Temperature 97.8 F Pulse Rate 87 77 Respiratory Rate 22 H 16 Blood Pressure 127/62 134/69 Pulse Oximetry 97 96 Oxygen Delivery Room Air Fraction of Inspired Oxygen 11/29/23 17:45 11/29/23 18:42 11/29/23 19:59 Temperature 98.4 F 97.9 F Pulse Rate 79 94 83 Respiratory Rate 22 H 18 18 Blood Pressure 132/78 140/67 141/70 H Pulse Oximetry 96 94 93 Oxygen Delivery Fraction of Inspired Oxygen 11/29/23 20:00 11/29/23 20:00 11/29/23 23:24 Temperature 97.1 F L Pulse Rate 79 87 Respiratory Rate 18 Blood Pressure 137/68 Pulse Oximetry 96 Oxygen Delivery Room Air Fraction of Inspired Oxygen 11/30/23 00:00 11/29/23 22:00 11/30/23 00:00 Temperature Pulse Rate 83 80 Respiratory Rate Blood Pressure Pulse Oximetry Oxygen Delivery Room Air Fraction of Inspired Oxygen 11/30/23 02:00 11/30/23 03:53 11/30/23 04:00 Temperature 97.4 F L Pulse Rate 80 93 Respiratory Rate 18
[2023-11-30] MEDS: IPRATROPIUM 0.5 MG/ALBUTEROL SULFATE 2.5 MG AMPUL.NEB 3 ML INHALATION ×2 (13:21→19:46)
[2023-11-30 13:27] LABS: Alveolar/Arterial O2 Gradient 44.7 mmHg; Base Excess ABG -1.1 mEq/l (+/-2.0); Device ROOM AIR; Fractional Inspired Oxygen 21 %; HCO3 ABG 21.8 mEq/l (22.0-26.0); Modified Allen's Test Pass; Oxygen Content ABG 18.4 %vol (16.0-22.0); Oxygen Saturation ABG 94.6 % (95.0-100.0); Oxyhemoglobin 92.9 % THb (90.0-100.0); PCO2 ABG 31.4 mmHg (35.0-45.0); PO2 ABG 67.4 mmHg (80.0-100.0); PO2 FiO2 Ratio Arterial Blood 3.21 %; Site Drawn RIGHT RADIAL; Total Hemoglobin 14.1 g/dL (12.0-18.0); pH ABG 7.459 (7.350-7.450)
--- NOTE | 2023-11-30 14:38 | PCCCNOTE ---
On 11/30/23, the student, [Annamaria Morales ], provided care and completed [facility] documentation on this patient. I have reviewed the student's documentation and agree with the findings.
[2023-11-30 19:27] LABS: MRSA (PCR) NOT DETECTED (NOT DETECTE)
[2023-11-30] MEDS: TAMSULOSIN HCL 0.4 MG CAPSULE PO (20:42)
[2023-11-30] MEDS: HEPARIN SODIUM 5,000 UNITS/ML VIAL 5000 UNITS SUB-Q (20:42)
[2023-11-30] MEDS: ROSUVASTATIN 10 MG TABLET 40 MG PO (20:42)
[2023-12-01] VITALS (27 sets, daily range): BP systolic 107–144; BP diastolic 45–67; PULSE 60–112; RESP 16–24; TEMP 36.1–36.6; O2SAT 94–100
[2023-12-01 04:39] LABS: Basophils Percent Auto 0.1 % (0.2-1.2); Eosinophils Percent Auto 0.1 % (0-4.4); Hematocrit 39.1 % (42.0-52.0); Hemoglobin 12.9 g/dL (14.0-18.0); Immature Granulocyte Absolute 0.14 K/mm3 (0.00-0.031); Immature Granulocyte Percent A 0.7 % (0-0.5); Lymphocytes Absolute Auto 0.99 K/mm3 (0.9-3.2); Lymphocytes Percent Auto 4.7 % (18.3-44.2); Mean Corpuscular Hemoglobin 30.6 pg (26-34); Mean Corpuscular Volume 92.7 fl (80-100); Mean Platelet Volume 10.4 fl (7.4-10.4); Monocytes Absolute Auto 1.4 K/mm3 (0.1-0.6); Monocytes Percent Auto 6.6 % (2.6-8.5); Neutrophils Absolute Auto 18.4 K/mm3 (1.3-6.7); Neutrophils Percent Auto 87.8 % (45.5-73.1); Platelet Count Result 231 k/mm3 (150-375); Red Blood Count 4.22 M/mm3 (4.6-6.20); Red Cell Distribution Width 14.6 % (11.5-14.5)
[2023-12-01 04:53] LABS: Anion Gap 4 mmol/L (4-12); Blood Urea Nitrogen 18 mg/dL (9-20); Calcium 9.4 mg/dL (8.4-10.2); Carbon Dioxide 23 mmol/L (22-30); Chloride 106 mmol/L (98-107); Estimated CRCL calculation 44 ml/min; Estimated Glomerular Filt Rate > 60; Glucose 107 mg/dL (65-110); Potassium 3.8 mmol/L (3.4-5.0); Sodium 133 mmol/L (137-145)
--- NOTE | 2023-12-01 08:00 | EST_ITS ---
Patient Info Name: Jackson Drake Age: 78 years : 1945 Gender: Male Ht: 67 in Wt: 140 lbs BSA: 1.73 m2 Exam Date: 12/01/2023 10:34 AM Exam Location: Echo Lab Patient Status: Inpatient Admit Date: 11/30/2023 Staff Ordering Physician: Asael Guerra MD Attending Provider: Sandy Kunz MD Exercise Technologist: Tosha Jason RDCS Nurse: Clare Benavides APN Exam Type: CA stress susi w NM Study Info Indications R07.9 - Chest pain, unspecified R06.09 - Other forms of dyspnea - ELEVATED TROPONIN Summary 1. Sinus rhythm, within normal limits. 2. No diagnostic ST or T-wave abnormalities following Lexiscan injection. 3. Occasional PVCs. 4. Clinically and electrocardiographically unremarkable Lexiscan nuclear stress test. 5. Myocardial perfusion imaging exam to be reported by Radiology. Protocol: Lexiscan Stress ECG Details Stage: REST Duration (min): 1 min : 36 sec HR (bpm): 69 SBP (mmHg): 148 DBP (mmHg): 82 Stage: REST Duration (min): 15 min : 58 sec HR (bpm): 67 SBP (mmHg): 148 DBP (mmHg): 82 Stage: STAGE 1 Duration (min): 0 min : 59 sec HR (bpm): 71 SBP (mmHg): 144 DBP (mmHg): 75 Stage: RECOVERY Duration (min): 1 min : 0 sec HR (bpm): 95 SBP (mmHg): 126 DBP (mmHg): 74 Stage: RECOVERY Duration (min): 2 min : 0 sec HR (bpm): 93 SBP (mmHg): 126 DBP (mmHg): 74 Stage: RECOVERY Duration (min): 3 min : 0 sec HR (bpm): 89 SBP (mmHg): 144 DBP (mmHg): 76 Stage: RECOVERY Duration (min): 3 min : 6 sec HR (bpm): 88 SBP (mmHg): 144 DBP (mmHg): 76 Rest HR: 67 bpm Peak HR: 96 bpm Rest Sys BP: 148 mmHg Peak Sys BP: 144 mmHg Max Pred HR: 141 bpm % Max Pred HR: 68 % Target HR: 120 bpm Max RPP: 13,824 bpm*mmHg Termination Reason: Completed protocol Total Time: 1 min : 0 sec Rest [place] BP: 82 mmHg Peak [place] BP: 76 mmHg Total Dose: 0.4 mg Resting ECG Sinus rhythm, within normal limits. Stress ECG No diagnostic ST or T-wave abnormalities following Lexiscan injection. Arrhythmias Occasional PVCs. Report Signatures
--- NOTE | 2023-12-01 08:38 | PC.NURSE ---
Pt had 15 beat run of vtach. Pt reports he felt a fluttering in his chest that quickly subsided. He is currently in no distress. heart rate in the 70s sinus rhythm on telemetry. BP 144/74
--- NOTE | 2023-12-01 09:23 | PM.IMPN ---
Progress Note: A&P Assessment and Plan (1) Pulmonary nodule: Code(s): R91.1 - Solitary pulmonary nodule Status: Acute (2) Abnormal chest CT: Code(s): R93.89 - Abnormal findings on diagnostic imaging of other specified body structures Status: Acute (3) Hypertension: Code(s): I10 - Essential (primary) hypertension Status: Acute (4) Elevated troponin: Code(s): R79.89 - Other specified abnormal findings of blood chemistry Status: Acute Plan 78 y/o M with PMH of COPD, CAD (multiple stents previously placed, 4), HLD, HTN, [place] (w/cardiac arrest and 2 stents placed, 2015), ICD/pacemaker in place, and anxiety/depression presented here from home for further evaluation of shortness of breath for the past week.Chest CTA showed no PE, mild right lower lobe pneumonia, mild emphysema, and a 7 mm right upper lobe pulmonary nodule. COPD exacerbation, community-acquired pneumonia, lung nodule Lower lobe pneumonia+ pulmonary nodule: Currently on room air Tested negative for COVID, influenza, RSV Leukocytosis has resolved Await pulmonary consult Continue with short course of steroid Continue with levofloxacin Continue with bronchodilators appreciate collar setter overlock consultation continue Levaquin IV, collar setter overlock repeat CT scan in 3 months 2. Elevated troponin: Appreciate cardiology help Continue with aspirin, statin, beta-thor with history of coronary artery disease stress test ?showed small area of mild infarct involving mid to basal inferolateral segments of left ventricle, no ischemia.? EF 51%.? cartridges recommends to continue with medical management of CAD including ASA, high intensity statin. 3. DVT prophylaxis: Heparin subQ 4. Code status: Modified 5. Disposition: Pending improvement Subjective Date/time seen: 12/01/23 09:23 Interval history: I saw exam patient today, patient feels tired, patient underwent cardiac stress test, patient denies palpitation, abdomen pain, nausea vomiting diarrhea Exam Narrative: GENERAL: Pleasant, in no acute distress. Well-nourished. - EYES: EOMI. Anicteric. - HENT: Moist mucous membranes. heart hearing - LUNGS: Clear to auscultation bilaterally, no wheezing, rhonchi, or rales. - CARDIOVASCULAR: Regular rate and rhythm. No murmur. No JVD. - ABDOMEN: Soft, non-tender and non-distended. No palpable masses. - EXTREMITIES: No edema. Peripheral pulses 2+. Non-tender. - NEUROLOGIC: No focal neurological deficits. CN II-XII grossly intact. - PSYCHIATRIC: Awake, Alert and oriented x 3. Appropriate mood and affect. - SKIN: No rashes or lesions. Warm. - LYMPH: No cervical lymphadenopathy. Objective Data Vital Signs Vital Signs: Vital Signs - 24 hr 11/30/23 09:44 11/30/23 10:00 11/30/23 11:44 Temperature Pulse Rate 108 H 106 H 92 Respiratory Rate Blood Pressure Pulse Oximetry Oxygen Delivery Fraction of Inspired Oxygen 11/30/23 11:44 11/30/23 11:39 11/30/23 13:32 Temperature 97.0 F L Pulse Rate 83 83 92 Respiratory Rate 28 H 28 H 20 Blood Pressure 146/70 H Pulse Oximetry 94 94 Oxygen Delivery Room Air Fraction of Inspired Oxygen 11/30/23 13:21 11/30/23 16:00 11/30/23 16:00 Temperature 98.4 F Pulse Rate 85 85 89 Respiratory Rate 20 24 H Blood Pressure 136/63 Pulse Oximetry 92 Oxygen Delivery Fraction of Inspired Oxygen 11/30/23 16:00 11/30/23 18:00 11/30/23 19:46 Temperature Pulse Rate 85 82 Respiratory Rate 24 H Blood Pressure Pulse Oximetry 92 93 Oxygen Delivery Room Air Room Air Fraction of Inspired Oxygen 11/30/23 19:46 11/30/23 19:54 11/30/23 19:59 Temperature 97.5 F L Pulse Rate 85 86 79 Respiratory Rate 16 16 16 Blood Pressure 132/62 Pulse Oximetry 100 Oxygen Delivery Fraction of Inspired Oxygen 11/30/23 20:00 11/30/23 20:42 11/30/23 20:45 Temperature Pulse Rate 87 90 90 Respiratory Rate 16 Bl
--- NOTE | 2023-12-01 09:43 | PM.PNPUL ---
Progress Note: A&P Assessment and Plan (1) COPD exacerbation: Code(s): J44.1 - Chronic obstructive pulmonary disease with (acute) exacerbation Status: Acute Assessment and Plan: Patient with a 62 pack year tobacco use, currently smoking, PFTs 10 years ago and was told he had moderate disease, worsening dyspnea on exertion, CT scan with mild apical predominant centrilobular emphysema. prior ABG on 10/10/2023 when he is admitted for pneumonia was 7.40/36/89 on CPAP 5 and 60%. Current serum bicarbonate is 25 and 23. 11/30/23 room air blood gas was 7.46. Patient currently presents with 2 weeks increased cough and phlegm production and 2 days worsening shortness of breath. he was noted to have mild wheezing in the emergency department. I believe he does have a COPD exacerbation. 11/30/23: Plan: Agree with prednisone 40 mg p.o. q.day, started 11/28. I will start the patient on albuterol and ipratropium nebulizers q.4 hours. Patient is being treated for pneumonia with levofloxacin. Currently is on room air with saturations 94%. Goal saturation 90-94%. I will check a room air arterial blood gas to exclude hypercarbia. I will check an alpha 1 anti trypsin genotype and level. Later in the day room air blood gas was 7.46. There is no evidence of hypercarbic respiratory failure 12/01/23: Overall the patient states he is breathing better. His cough and phlegm production persist. He states the nebulizer treatments help him and his last treatment was at 19:46 last night. The patient tells me he had fluttering in his chest this morning and he had a tachy arrhythmia on his monitor. He is afebrile, white blood cell count 21, creatinine 1.10. Room air saturations 94%. Weight is 63.8 with an admission weight of 68. Chest x-ray today shows no acute cardiopulmonary disease. Plan: prednisone 40 mg q.day, day 3. Patient with a tachyarrhythmia Approximately 10 hours after his last DuoNeb. low suspicion that the beta agonist was a contributor to this tachyarrhythmia. He has no wheezing on exam. I have discontinued his DuoNebs and placed him on nebulized ipratropium 0.5 mg q.4 hours and p.r.n. levalbuterol 1.25 mg q.6 hours. Patient on Levaquin for pneumonia. Will follow with you. (2) Pneumonia: Qualifiers: Laterality: right Lung location: lower lobe of lung Code(s): J18.9 - Pneumonia, unspecified organism Status: Acute Assessment and Plan: The patient has new right lower lobe tree-in-bud infiltrates since 10/10/2023. He presented with leukocytosis. Agree with treatment for pneumonia. MRSA swab negative on 10/10/2023. COVID, RSV and influenza RT PCR study negative for 24. Blood culture and sputum cultures pending. Initially treated with ceftriaxone and azithromycin for one dose and switch to levofloxacin. Plan: Patient is afebrile, leukocytosis has improved. I will send urine Legionella, urine pneumococcal and mycoplasma IgM. I will send a respiratory pathogen panel. will continue levofloxacin at this time. Later in the day room air blood gas was 7.. 12/01/23: He is afebrile, white blood cell count 21, creatinine 1.10. Weight is 63.8 with an admission weight of 68. Chest x-ray today shows no acute cardiopulmonary disease. Plan: I will send urine Legionella, urine pneumococcal and mycoplasma IgM, respiratory pathogen panel pending. will continue levofloxacin, started 11/29/2023, day 3. (3) Pulmonary nodule: Code(s): R91.1 - Solitary pulmonary nodule Status: Acute Assessment and Plan: Patient has Sixty-two pack year tobacco use, mild emphysema on a CT scan and a right upper lobe 7 mm nodule that is increased from 4 mm on 02/05/2022. Plan: Will treat patient for pneumonia and COPD exacerbation at this time. will repeat CT scan as an outpatient in 3 months. Subjective Date/time seen: 12/01/23 09:43 Interval histor
[2023-12-01 10:15] LABS: Magnesium 2.3 mg/dL (1.6-2.3)
[2023-12-01] MEDS: ASPIRIN 325 MG TABLET PO (11:45)
[2023-12-01] MEDS: predniSONE 20 MG TABLET 40 MG PO (11:45)
[2023-12-01] MEDS: DULoxetine HCL 60 MG CAPSULE.DR PO (11:45)
[2023-12-01] MEDS: FOLIC ACID 1 MG TABLET PO (11:46)
[2023-12-01] MEDS: METOPROLOL TARTRATE 25 MG TABLET PO ×2 (11:46→20:18)
[2023-12-01] MEDS: FINASTERIDE 5 MG TABLET PO (11:46)
[2023-12-01] MEDS: VITAMIN B COMPLEX CAPSULE 1 CAP PO (11:47)
[2023-12-01] MEDS: HEPARIN SODIUM 5,000 UNITS/ML VIAL 5000 UNITS SUB-Q ×2 (11:47→20:17)
[2023-12-01] MEDS: IPRATROPIUM BR 0.02% INH SOLN 0.5 MG/2.5 ML VIAL INHALATION ×3 (11:51→20:25)
--- NOTE | 2023-12-01 13:27 | PM.PNCARD ---
Progress Note: A&P Assessment and Plan (1) Elevated troponin: Code(s): R79.89 - Other specified abnormal findings of blood chemistry Status: Acute Assessment and Plan: Troponin of 0.075, 0.087. Previous troponin levels in our system were negative. EKG with sinus rhythm, nonspecific T-wave abnormality, no ischemic changes. Has known CAD. His chest pain is pleuritic and occurs with coughing. Lexiscan showed small area of mild infarct involving mid to basal inferolateral segments of left ventricle, no ischemia. EF 51%. Continue with medical management of CAD including ASA, high intensity statin. Cardiology will sign off please call with questions. (2) Pneumonia: Qualifiers: Laterality: right Lung location: lower lobe of lung Code(s): J18.9 - Pneumonia, unspecified organism Status: Acute Assessment and Plan: Management as per primary team. (3) Pulmonary nodule: Code(s): R91.1 - Solitary pulmonary nodule Status: Acute Assessment and Plan: Chest CTA shows 7mm RUL nodule concerning for bronchogenic carcinoma. The nodule has increased in size from 4mm on 02/05/2022. He does report intermittent night sweats, some unintentional weight loss (although not able to really clarify the details regarding weight loss). Ongoing smoker. Pulmonology following with plan for repeat chest CT in 3 months. (4) Hypertension: Code(s): I10 - Essential (primary) hypertension Status: Acute Assessment and Plan: Stable. Continue Metoprolol (5) Coronary artery disease: Code(s): I25.10 - Atherosclerotic heart disease of [place] coronary artery without angina pectoris Status: Acute Assessment and Plan: Continue ASA, statin, beta thor (6) Tobacco dependence: Code(s): F17.200 - Nicotine dependence, unspecified, uncomplicated Status: Acute Assessment and Plan: Encouraged cessation, however, the patient does not appear to want to quit. Subjective Date/time seen: 12/01/23 13:27 Interval history: Cardiology follow up for CAD, elevated troponin, shortness of breath Date of service 12/01/23: He's feeling much better today. Denies any chest pain. Breathing is improved. He had a short run of NSVT this morning which was self limited. RN reported that he did feel a sensation of palpitations. Review of Systems Review of Systems: All systems reviewed & are unremarkable except as noted in HPI and below (HPI) Exam Const: General: comfortable and no acute distress HENMT: Mouth: Yes moist mucous membranes Eyes: General: appearance normal, both eyes and all related structures Sclera: sclerae normal Resp: Effort & Inspection: normal respiratory effort Auscultation: diminished lung sounds Cardio: Rate: regular rate Rhythm: regular rhythm Heart sounds: no murmurs Skin: General skin exam: normal color Neuro: Speech: normal speech Psych: Mental Status: mental status grossly normal Affect: normal affect Objective Data Vital Signs Vital Signs: Vital Signs - 24 hr 11/30/23 13:32 11/30/23 16:00 11/30/23 16:00 Temperature 36.9 C Pulse Rate 92 85 89 Respiratory Rate 20 24 H Blood Pressure 136/63 Pulse Oximetry 92 Oxygen Delivery Fraction of Inspired Oxygen 11/30/23 16:00 11/30/23 18:00 11/30/23 19:46 Temperature Pulse Rate 85 82 Respiratory Rate 24 H Blood Pressure Pulse Oximetry 92 93 Oxygen Delivery Room Air Room Air Fraction of Inspired Oxygen 21 11/30/23 19:46 11/30/23 19:54 11/30/23 19:59 Temperature 36.4 C L Pulse Rate 85 86 79 Respiratory Rate 16 16 16 Blood Pressure 132/62 Pulse Oximetry 100 Oxygen Delivery Fraction of Inspired Oxygen 11/30/23 20:00 11/30/23 20:42 11/30/23 20:45 Temperature Pulse Rate 87 90 90 Respiratory Rate 16 Blood Pressure Pulse Oximetry 100 Oxygen Delivery Room Air Fraction of Inspired Oxygen 21 0
[2023-12-01] MEDS: levoFLOXacin 750 MG/D5W 150 ML 750 MG/150 ML BAG 100 MG IVPB (20:17)
[2023-12-01] MEDS: ROSUVASTATIN 10 MG TABLET 40 MG PO (20:17)
[2023-12-01] MEDS: TAMSULOSIN HCL 0.4 MG CAPSULE PO (20:18)
[2023-12-01] MEDS: LEVALBUTEROL NEB 1.25 MG/3 ML INHALATION (20:50)
[2023-12-02] VITALS (17 sets, daily range): BP systolic 115–143; BP diastolic 60–70; PULSE 61–86; RESP 18–24; TEMP 36.2–36.6; O2SAT 95–98
[2023-12-02] MEDS: IPRATROPIUM BR 0.02% INH SOLN 0.5 MG/2.5 ML VIAL INHALATION ×3 (00:12→11:26)
[2023-12-02] MEDS: ASPIRIN 325 MG TABLET PO (08:35)
[2023-12-02] MEDS: VITAMIN B COMPLEX CAPSULE 1 CAP PO (08:35)
[2023-12-02] MEDS: DULoxetine HCL 60 MG CAPSULE.DR PO (08:35)
[2023-12-02] MEDS: METOPROLOL TARTRATE 25 MG TABLET PO ×2 (08:36→21:37)
[2023-12-02] MEDS: predniSONE 20 MG TABLET 40 MG PO (08:36)
[2023-12-02] MEDS: FOLIC ACID 1 MG TABLET PO (08:36)
[2023-12-02] MEDS: FINASTERIDE 5 MG TABLET PO (08:36)
[2023-12-02] MEDS: HEPARIN SODIUM 5,000 UNITS/ML VIAL 5000 UNITS SUB-Q ×2 (08:38→21:38)
--- NOTE | 2023-12-02 08:54 | PM.IMPN ---
Progress Note: A&P Assessment and Plan (1) Pulmonary nodule: Code(s): R91.1 - Solitary pulmonary nodule Status: Acute (2) Abnormal chest CT: Code(s): R93.89 - Abnormal findings on diagnostic imaging of other specified body structures Status: Acute (3) Hypertension: Code(s): I10 - Essential (primary) hypertension Status: Acute (4) Elevated troponin: Code(s): R79.89 - Other specified abnormal findings of blood chemistry Status: Acute Plan 78 y/o M with PMH of COPD, CAD (multiple stents previously placed, 4), HLD, HTN, [place] (w/cardiac arrest and 2 stents placed, 2015), ICD/pacemaker in place, and anxiety/depression presented here from home for further evaluation of shortness of breath for the past week.Chest CTA showed no PE, mild right lower lobe pneumonia, mild emphysema, and a 7 mm right upper lobe pulmonary nodule. COPD exacerbation, community-acquired pneumonia, lung nodule Lower lobe pneumonia+ pulmonary nodule: Currently on room air Tested negative for COVID, influenza, RSV Leukocytosis has resolved Await pulmonary consult Continue with short course of steroid Continue with levofloxacin Continue with bronchodilators appreciate guidance services coordinator consultation continue Levaquin IV, guidance services coordinator repeat CT scan in 3 months continue Levaquin IV per guidance services coordinator today 2. Elevated troponin: Appreciate cardiology help Continue with aspirin, statin, beta-thor with history of coronary artery disease stress test ?showed small area of mild infarct involving mid to basal inferolateral segments of left ventricle, no ischemia.? EF 51%.? cartridges recommends to continue with medical management of CAD including ASA, high intensity statin. 3. DVT prophylaxis: Heparin subQ 4. Code status: Modified 5. Disposition: Pending improvement Subjective Date/time seen: 12/02/23 08:54 Interval history: I saw and examined patient today, patient feels tired, patient feels tired, patient denies palpitation, abdomen pain, nausea vomiting diarrhea Exam Narrative: GENERAL: Pleasant, in no acute distress. Well-nourished. - EYES: EOMI. Anicteric. - HENT: Moist mucous membranes. heart hearing - LUNGS: Clear to auscultation bilaterally, no wheezing, rhonchi, or rales. - CARDIOVASCULAR: Regular rate and rhythm. No murmur. No JVD. - ABDOMEN: Soft, non-tender and non-distended. No palpable masses. - EXTREMITIES: No edema. Peripheral pulses 2+. Non-tender. - NEUROLOGIC: No focal neurological deficits. CN II-XII grossly intact. - PSYCHIATRIC: Awake, Alert and oriented x 3. Appropriate mood and affect. - SKIN: No rashes or lesions. Warm. - LYMPH: No cervical lymphadenopathy. Objective Data Vital Signs Vital Signs: Vital Signs - 24 hr 12/01/23 11:46 12/01/23 11:51 12/01/23 11:53 Temperature Pulse Rate 112 H 76 Respiratory Rate 18 Blood Pressure Pulse Oximetry 95 Oxygen Delivery Room Air Fraction of Inspired Oxygen 12/01/23 11:58 12/01/23 12:00 12/01/23 10:00 Temperature Pulse Rate 77 106 H 106 H Respiratory Rate 18 Blood Pressure Pulse Oximetry Oxygen Delivery Room Air Fraction of Inspired Oxygen 12/01/23 12:00 12/01/23 12:00 12/01/23 15:44 Temperature 96.9 F L Pulse Rate 82 80 69 Respiratory Rate 24 H 18 Blood Pressure 144/63 H Pulse Oximetry 100 Oxygen Delivery Fraction of Inspired Oxygen 12/01/23 15:52 12/01/23 16:00 12/01/23 16:00 Temperature 97.2 F L Pulse Rate 73 77 77 Respiratory Rate 18 20 Blood Pressure 138/61 Pulse Oximetry 100 Oxygen Delivery Fraction of Inspired Oxygen 12/01/23 16:00 12/01/23 20:08 12/01/23 20:18 Temperature 97.5 F L Pulse Rate 77 69 Respiratory Rate 19 Blood Pressure 107/45 L Pulse Oximetry 96 Oxygen Delivery Room Air Fraction of Inspired Oxygen 12/01/23 20:20 12/01/23 20:50 12/01/23 20:59 Temperature Pulse Rate 69 71 75 Resp
--- NOTE | 2023-12-02 12:47 | PM.PNPUL ---
Progress Note: A&P Assessment and Plan (1) COPD exacerbation: Code(s): J44.1 - Chronic obstructive pulmonary disease with (acute) exacerbation Status: Acute Assessment and Plan: Patient with a 62 pack year tobacco use, currently smoking, PFTs 10 years ago and was told he had moderate disease, worsening dyspnea on exertion, CT scan with mild apical predominant centrilobular emphysema. prior ABG on 10/10/2023 when he is admitted for pneumonia was 7.40/36/89 on CPAP 5 and 60%. Current serum bicarbonate is 25 and 23. 11/30/23 room air blood gas was 7.46. Patient currently presents with 2 weeks increased cough and phlegm production and 2 days worsening shortness of breath. he was noted to have mild wheezing in the emergency department. I believe he does have a COPD exacerbation. 11/30/23: Plan: Agree with prednisone 40 mg p.o. q.day, started 11/28. I will start the patient on albuterol and ipratropium nebulizers q.4 hours. Patient is being treated for pneumonia with levofloxacin. Currently is on room air with saturations 94%. Goal saturation 90-94%. I will check a room air arterial blood gas to exclude hypercarbia. I will check an alpha 1 anti trypsin genotype and level. Later in the day room air blood gas was 7.46. There is no evidence of hypercarbic respiratory failure 12/01/23: Overall the patient states he is breathing better. His cough and phlegm production persist. He states the nebulizer treatments help him and his last treatment was at 19:46 last night. The patient tells me he had fluttering in his chest this morning and he had a tachy arrhythmia on his monitor. He is afebrile, white blood cell count 21, creatinine 1.10. Room air saturations 94%. Weight is 63.8 with an admission weight of 68. Chest x-ray today shows no acute cardiopulmonary disease. Plan: prednisone 40 mg q.day, day 3. Patient with a tachyarrhythmia Approximately 10 hours after his last DuoNeb. low suspicion that the beta agonist was a contributor to this tachyarrhythmia. He has no wheezing on exam. I have discontinued his DuoNebs and placed him on nebulized ipratropium 0.5 mg q.4 hours and p.r.n. levalbuterol 1.25 mg q.6 hours. Patient on Levaquin for pneumonia. 12/02/2023: Patient says he continues to improve. He says he is 95% back to normal. The cough is present but improved. He has some dyspnea on exertion. He is afebrile. Room air saturations 99%. Patient had an overnight oximetry on room air with recording duration of 6 hours and 34 minutes. Average saturation 95%. Low saturation 90%. Time with saturation less than or equal to 88% was 0 minutes. Oxygen desaturation index 14.4. Plan: Continue prednisone 40 mg a day, day 4. patient tells me he was on breztri at home and I will place him on trilogy 100 today. continue Levaquin for pneumonia. If patient remains clinically stable will consider discharge tomorrow on these pulmonary medications: Levaquin 750 mg p.o. q.day last dose on 12/08/2023 Breztri 160- 9-4.8 at 2 puffs b.i.d. rescue albuterol 2 puffs q.4 hours p.r.n. shortness of breath or wheezing oxygen at rest and with ambulation per formal home O2 assessment on the day of discharge. No oxygen needed at night. Discussed with Dr. Kunz. Will follow with you. (2) Pneumonia: Qualifiers: Laterality: right Lung location: lower lobe of lung Code(s): J18.9 - Pneumonia, unspecified organism Status: Acute Assessment and Plan: The patient has new right lower lobe tree-in-bud infiltrates since 10/10/2023. He presented with leukocytosis. Agree with treatment for pneumonia. MRSA swab negative on 10/10/2023. COVID, RSV and influenza RT PCR study negative for 24. Blood culture and sputum cultures pending. Initially treated with ceftriaxone and azithromycin for one dose and switch to levofloxacin. Plan: Patient is afebrile, leukocytosis has improved. I will
[2023-12-02] MEDS: FLUTICASONE/UMECLIDIN/VILANTER 100-62.5-25 MCG ELLIPTA 1 PUFF INHALATION (13:52)
[2023-12-02] MEDS: ROSUVASTATIN 10 MG TABLET 40 MG PO (21:36)
[2023-12-02] MEDS: TAMSULOSIN HCL 0.4 MG CAPSULE PO (21:37)
[2023-12-03] VITALS (8 sets, daily range): BP systolic 129; BP diastolic 65; PULSE 60–75; RESP 18; TEMP 36.2; O2SAT 94–98
[2023-12-03 06:12] LABS: Basophils Percent Auto 0.2 % (0.2-1.2); Eosinophils Absolute Auto 0.1 K/mm3 (0-0.3); Eosinophils Percent Auto 0.6 % (0-4.4); Hematocrit 41.6 % (42.0-52.0); Hemoglobin 13.4 g/dL (14.0-18.0); Immature Granulocyte Absolute 0.05 K/mm3 (0.00-0.031); Immature Granulocyte Percent A 0.4 % (0-0.5); Lymphocytes Absolute Auto 1.48 K/mm3 (0.9-3.2); Mean Corpuscular HGB Conc 32.2 g/dl (32-36); Mean Corpuscular Hemoglobin 30.3 pg (26-34); Mean Corpuscular Volume 94.1 fl (80-100); Mean Platelet Volume 9.9 fl (7.4-10.4); Monocytes Absolute Auto 1.2 K/mm3 (0.1-0.6); Monocytes Percent Auto 9.3 % (2.6-8.5); Neutrophils Absolute Auto 9.6 K/mm3 (1.3-6.7); Neutrophils Percent Auto 77.5 % (45.5-73.1); Platelet Count Result 219 k/mm3 (150-375); Red Blood Count 4.42 M/mm3 (4.6-6.20); Red Cell Distribution Width 14.2 % (11.5-14.5); White Blood Count 12.4 K/mm3 (4.5-10.0)
[2023-12-03] MEDS: METOPROLOL TARTRATE 25 MG TABLET PO (08:34)
[2023-12-03] MEDS: DULoxetine HCL 60 MG CAPSULE.DR PO (08:34)
[2023-12-03] MEDS: ASPIRIN 325 MG TABLET PO (08:34)
[2023-12-03] MEDS: predniSONE 20 MG TABLET 40 MG PO (08:34)
[2023-12-03] MEDS: VITAMIN B COMPLEX CAPSULE 1 CAP PO (08:34)
[2023-12-03] MEDS: FINASTERIDE 5 MG TABLET PO (08:34)
[2023-12-03] MEDS: HEPARIN SODIUM 5,000 UNITS/ML VIAL 5000 UNITS SUB-Q (08:35)
[2023-12-03] MEDS: FOLIC ACID 1 MG TABLET PO (08:35)
--- NOTE | 2023-12-03 09:57 | PM.PNPUL ---
Progress Note: A&P Assessment and Plan (1) COPD exacerbation: Code(s): J44.1 - Chronic obstructive pulmonary disease with (acute) exacerbation Status: Acute Assessment and Plan: Patient with a 62 pack year tobacco use, currently smoking, PFTs 10 years ago and was told he had moderate disease, worsening dyspnea on exertion, CT scan with mild apical predominant centrilobular emphysema. prior ABG on 10/10/2023 when he is admitted for pneumonia was 7.40/36/89 on CPAP 5 and 60%. Current serum bicarbonate is 25 and 23. 11/30/23 room air blood gas was 7.46. Patient currently presents with 2 weeks increased cough and phlegm production and 2 days worsening shortness of breath. he was noted to have mild wheezing in the emergency department. I believe he does have a COPD exacerbation. 11/30/23: Plan: Agree with prednisone 40 mg p.o. q.day, started 11/28. I will start the patient on albuterol and ipratropium nebulizers q.4 hours. Patient is being treated for pneumonia with levofloxacin. Currently is on room air with saturations 94%. Goal saturation 90-94%. I will check a room air arterial blood gas to exclude hypercarbia. I will check an alpha 1 anti trypsin genotype and level. Later in the day room air blood gas was 7.46. There is no evidence of hypercarbic respiratory failure 12/01/23: Overall the patient states he is breathing better. His cough and phlegm production persist. He states the nebulizer treatments help him and his last treatment was at 19:46 last night. The patient tells me he had fluttering in his chest this morning and he had a tachy arrhythmia on his monitor. He is afebrile, white blood cell count 21, creatinine 1.10. Room air saturations 94%. Weight is 63.8 with an admission weight of 68. Chest x-ray today shows no acute cardiopulmonary disease. Plan: prednisone 40 mg q.day, day 3. Patient with a tachyarrhythmia Approximately 10 hours after his last DuoNeb. low suspicion that the beta agonist was a contributor to this tachyarrhythmia. He has no wheezing on exam. I have discontinued his DuoNebs and placed him on nebulized ipratropium 0.5 mg q.4 hours and p.r.n. levalbuterol 1.25 mg q.6 hours. Patient on Levaquin for pneumonia. 12/02/2023: Patient says he continues to improve. He says he is 95% back to normal. The cough is present but improved. He has some dyspnea on exertion. He is afebrile. Room air saturations 99%. Patient had an overnight oximetry on room air with recording duration of 6 hours and 34 minutes. Average saturation 95%. Low saturation 90%. Time with saturation less than or equal to 88% was 0 minutes. Oxygen desaturation index 14.4. Plan: Continue prednisone 40 mg a day, day 4. patient tells me he was on breztri at home and I will place him on trilogy 100 today. continue Levaquin for pneumonia. 12/03/2023: Patient states he is breathing back to his baseline. He denies wheezing, cough, phlegm production. Room air saturations 99%. White blood cell count 12.4. Patient states he is feeling well and wishes to go home today. Today is day 5 of prednisone. From a pulmonary perspective patient is ready to be discharged on these pulmonary medications: Levaquin 750 mg p.o. q.day last dose on 12/08/2023 Breztri 160- 9-4.8 at 2 puffs b.i.d. rescue albuterol 2 puffs q.4 hours p.r.n. shortness of breath or wheezing oxygen at rest and with ambulation per formal home O2 assessment which I have ordered. No oxygen needed at night. follow-up in the Pulmonary Clinic in 4 weeks. I have given the patient our business card and informed our clinic scheduler. Discussed with Dr. Kunz. Will sign off, call with questions (2) Pneumonia: Qualifiers: Laterality: right Lung location: lower lobe of lung Code(s): J18.9 - Pneumonia, unspecified organism Status: Acute Assessment and Plan: The patient has new right lower lobe tree-in-bud in
--- NOTE | 2023-12-03 10:21 | PM.IMPN ---
Progress Note: A&P Assessment and Plan (1) Pulmonary nodule: Code(s): R91.1 - Solitary pulmonary nodule Status: Acute (2) Abnormal chest CT: Code(s): R93.89 - Abnormal findings on diagnostic imaging of other specified body structures Status: Acute (3) Hypertension: Code(s): I10 - Essential (primary) hypertension Status: Acute (4) Elevated troponin: Code(s): R79.89 - Other specified abnormal findings of blood chemistry Status: Acute Plan 78 y/o M with PMH of COPD, CAD (multiple stents previously placed, 4), HLD, HTN, [place] (w/cardiac arrest and 2 stents placed, 2015), ICD/pacemaker in place, and anxiety/depression presented here from home for further evaluation of shortness of breath for the past week.Chest CTA showed no PE, mild right lower lobe pneumonia, mild emphysema, and a 7 mm right upper lobe pulmonary nodule. COPD exacerbation, community-acquired pneumonia, lung nodule Lower lobe pneumonia+ pulmonary nodule: Currently on room air Tested negative for COVID, influenza, RSV Leukocytosis has resolved Await pulmonary consult Continue with short course of steroid Continue with levofloxacin Continue with bronchodilators appreciate catcher helper consultation continue Levaquin IV, catcher helper repeat CT scan in 3 months continue Levaquin IV per catcher helper today 12/02 appreciate catcher helper consultation, catcher helper recommends the following medications and also recommends todischarge patient today Levaquin 750 mg p.o. q.day last dose on 12/08/2023 Pretty 160- 9-4.8 at 2 puffs b.i.d. ?rescue albuterol 2 puffs q.4 hours p.r.n. shortness of breath or wheezing 2. Elevated troponin: Appreciate cardiology help Continue with aspirin, statin, beta-thor with history of coronary artery disease stress test ?showed small area of mild infarct involving mid to basal inferolateral segments of left ventricle, no ischemia.? EF 51%.? cardiologists recommends to continue with medical management of CAD including ASA, high intensity statin. 3. DVT prophylaxis: Heparin subQ 4. Code status: Modified 5. Disposition: Pending improvement Subjective Date/time seen: 12/03/23 10:21 Interval history: Patient has no new issue even overnight, patient is afebrile, blood pressure stable pulse ox 96-98 on room air, labs reviewed Exam Narrative: GENERAL: Pleasant, in no acute distress. Well-nourished. - EYES: EOMI. Anicteric. - HENT: Moist mucous membranes. heart hearing - LUNGS: Clear to auscultation bilaterally, no wheezing, rhonchi, or rales. - CARDIOVASCULAR: Regular rate and rhythm. No murmur. No JVD. - ABDOMEN: Soft, non-tender and non-distended. No palpable masses. - EXTREMITIES: No edema. Peripheral pulses 2+. Non-tender. - NEUROLOGIC: No focal neurological deficits. CN II-XII grossly intact. - PSYCHIATRIC: Awake, Alert and oriented x 3. Appropriate mood and affect. - SKIN: No rashes or lesions. Warm. - LYMPH: No cervical lymphadenopathy. Objective Data Vital Signs Vital Signs: Vital Signs - 24 hr 12/02/23 11:27 12/02/23 11:37 12/02/23 12:00 Temperature 97.1 F L Pulse Rate 61 70 63 Respiratory Rate 18 18 18 Blood Pressure 133/70 Pulse Oximetry 98 Oxygen Delivery 12/02/23 16:00 12/02/23 19:00 12/02/23 19:44 Temperature 97.5 F L 97.8 F 97.3 F L Pulse Rate 64 73 67 Respiratory Rate 18 18 18 Blood Pressure 125/61 115/64 126/64 Pulse Oximetry 95 96 98 Oxygen Delivery 12/02/23 12:00 12/02/23 16:00 12/02/23 21:37 Temperature Pulse Rate 86 67 72 Respiratory Rate Blood Pressure Pulse Oximetry Oxygen Delivery 12/02/23 20:00 12/03/23 00:00 12/03/23 04:00 Temperature Pulse Rate 60 61 Respiratory Rate Blood Pressure Pulse Oximetry Oxygen Delivery Room Air 12/03/23 04:43 12/03/23 08:34 12/03/23 08:39 Temperature 97.2 F L Pulse Rate 70 61 Respiratory Rate 18 Blood Pressure 129/65 Pu
--- NOTE | 2023-12-03 10:23 | PM.DS ---
DS: Admitting Diagnosis Discharge Date 12/02 Admitting Diagnosis (1) Pulmonary nodule: ?Code(s): R91.1 - Solitary pulmonary nodule ?Status:?Acute (2) Abnormal chest CT: ?Code(s): R93.89 - Abnormal findings on diagnostic imaging of other specified body structures ?Status:?Acute (3) Hypertension: ?Code(s): I10 - Essential (primary) hypertension ?Status:?Acute (4) Elevated troponin: ?Code(s): R79.89 - Other specified abnormal findings of blood chemistry ?Status:?Acute DS: Discharge Diagnosis Discharge Diagnosis (1) Pulmonary nodule: Code(s): R91.1 - Solitary pulmonary nodule Status: Acute (2) Abnormal chest CT: Code(s): R93.89 - Abnormal findings on diagnostic imaging of other specified body structures Status: Acute (3) Hypertension: Code(s): I10 - Essential (primary) hypertension Status: Acute (4) Elevated troponin: Code(s): R79.89 - Other specified abnormal findings of blood chemistry Status: Acute DS: Summary Hospital Course Hospital Course: 78 y/o M with PMH of COPD, CAD (multiple stents previously placed, 4), HLD, HTN, [place] (w/cardiac arrest and 2 stents placed, 2015), ICD/pacemaker in place, and anxiety/depression presented here from home for further evaluation of shortness of breath for the past week.Chest CTA showed no PE, mild right lower lobe pneumonia, mild emphysema, and a 7 mm right upper lobe pulmonary nodule. The following med issues have been addressed during hospitalization COPD exacerbation, community-acquired pneumonia, lung nodule Lower lobe pneumonia+ pulmonary nodule: Currently on room air Tested negative for COVID, influenza, RSV Leukocytosis has resolved Await pulmonary consult Continue with short course of steroid Continue with levofloxacin Continue with bronchodilators appreciate rug renovator consultation continue Levaquin IV, rug renovator repeat CT scan in 3 months continue Levaquin IV per rug renovator today 12/02 appreciate rug renovator consultation, rug renovator recommends the following medications and also recommends todischarge patient today Levaquin 750 mg p.o. q.day last dose on 12/08/2023 Pretty 160- 9-4.8 at 2 puffs b.i.d. ?rescue albuterol 2 puffs q.4 hours p.r.n. shortness of breath or wheezing 2. Elevated troponin: Appreciate cardiology help Continue with aspirin, statin, beta-thor with history of coronary artery disease stress test ?showed small area of mild infarct involving mid to basal inferolateral segments of left ventricle, no ischemia.? EF 51%.? cardiologists recommends to continue with medical management of CAD including ASA, high intensity statin. 3. DVT prophylaxis: Heparin subQ 4. Code status: Modified 5. Disposition: Pending improvement Time Spent with Patient Time attestation: Total time spent providing and/or coordinating discharge services: Exam Narrative: GENERAL: Pleasant, in no acute distress. Well-nourished. - EYES: EOMI. Anicteric. - HENT: Moist mucous membranes. heart hearing - LUNGS: Clear to auscultation bilaterally, no wheezing, rhonchi, or rales. - CARDIOVASCULAR: Regular rate and rhythm. No murmur. No JVD. - ABDOMEN: Soft, non-tender and non-distended. No palpable masses. - EXTREMITIES: No edema. Peripheral pulses 2+. Non-tender. - NEUROLOGIC: No focal neurological deficits. CN II-XII grossly intact. - PSYCHIATRIC: Awake, Alert and oriented x 3. Appropriate mood and affect. - SKIN: No rashes or lesions. Warm. - LYMPH: No cervical lymphadenopathy. DS: Data Data Completed and Pending Labs on day of discharge: Labs from last 24 hours 12/03/23 05:44 WBC 12.4 H RBC 4.42 L Hgb 13.4 L Hct 41.6 L MCV 94.1 MCH 30.3 MCHC 32.2 RDW 14.2 Plt Count 219 MPV 9.9 Immature Gran % (Auto) 0.4 Neut % (Auto) 77.5 H Lymph % (Auto) 12.0 L [place] % (Auto) 9.3 H Eos % (Auto) 0.6 Baso % (Auto) 0.2 Lymph # (A
--- NOTE | 2023-12-03 12:25 | HOMEO2EVAL ---
Evaluation was performed at [facility] Home Oxygen Evaluation RC: Home Oxygen (O2) Evaluation Start: 12/03/23 08:27 Freq: ONCE Status: Active Protocol: RPE Activity Type Activity Date Activity User E-sign Co-sign Detail Recorded Client Recorded Date Recorded By Document 12/03/23 12:17 KAG [email or web address] 12/03/23 12:23 KAG Document 12/03/23 12:22 KAG [email or web address] 12/03/23 12:24 KAG Document 12/03/23 12:23 KAG [email or web address] 12/03/23 12:25 KAG 12/03/23 12/03/23 12/03/23 12:17 12:22 12:23 Home O2 Evaluation [Oxygen] -Test Phase Resting Exercise Resting -Oxygen Delivery Room Air Room Air Room Air [Pulse Oximetry] -Pulse Oximetry (90-100 %) 98 96 96 [Pulse Rate] -Pulse Rate (60-100 beats/min) 68 75 72 [Evaluation] -Activity Tolerance Good [Exercise] -Ambulation Distance (feet) 60 -Ambulation Distance (meters) 18.28 [Comments] -Home Oxygen Evaluation Comments Patient walked the hallway and back to patient's room, Tolerated exercise well. [Charges] -Evaluation Charges O2 Evaluation by HARRIETT
--- NOTE | 2023-12-03 12:25 | PCRCNOTE ---
RT completed home O2 evaluation with patient. Patient did not require O2 needs at this time for discharge. RN informed.
[2023-12-04 16:28] LABS: Alpha-1-Antitrypsin, QN 179 mg/dL (83-199)
[2023-12-04 20:09] LABS: Adenovirus DNA Not Detected (Not Detected); Chlamydophila pneumoniae Not Detected (Not Detected); Coronavirus 229E Not Detected (Not Detected); Coronavirus HKU1 Not Detected (Not Detected); Coronavirus NL63 Not Detected (Not Detected); Coronavirus OC43 Not Detected (Not Detected); Human Metapneumovirus Not Detected (Not Detected); Human Parainfluenza Virus 1 Not Detected (Not Detected); Human Parainfluenza Virus 2 Not Detected (Not Detected); Human Parainfluenza Virus 3 Not Detected (Not Detected); Human Parainfluenza Virus 4 Not Detected (Not Detected); Human RSV B Not Detected (Not Detected); Influenza A Not Detected (Not Detected); Influenza B Not Detected (Not Detected); Mycoplasma pneumoniae Not Detected (Not Detected); Rhinovirus/Enterovirus Not Detected (Not Detected)
[2023-12-05 19:09] LABS: Pneumococcal Antigen Urine NOT DETECTED
[2023-12-06 01:03] LABS: Legionella pneumophila Ag Ur NOT DETECTED
[2023-12-11 18:23] LABS: Mycoplasma IgM Antibody Titer 255 U/mL
== END 2023-12-03 12:45 | disposition home health service (06) | DRG 190 ==
LOC: ANHED 16:56 → ANHIMU 17:35 → ANH3MED 12-02 18:33
PROVIDERS: Internal Medicine; Internal Medicine Pulmonary Disease; Nurse Practitioner; Physician Assistant; Student in an Organized Health Care Education/Training Program; Admitting Provider Hospitalist; Emergency Provider Student in an Organized Health Care Education/Training Program; PCP Physician Assistant; Visit Provider Hospitalist
DX: J44.0 Chronic obstructive pulmonary disease with (acute) lower respiratory infection (principal); J18.9 Pneumonia, unspecified organism; J44.1 Chronic obstructive pulmonary disease with (acute) exacerbation; I10 Essential (primary) hypertension; I25.10 Atherosclerotic heart disease of native coronary artery without angina pectoris; I73.9 Peripheral vascular disease, unspecified; E78.00 Pure hypercholesterolemia, unspecified; R91.1 Solitary pulmonary nodule; R79.89 Other specified abnormal findings of blood chemistry; F41.9 Anxiety disorder, unspecified; F32.A Depression, unspecified; F17.210 Nicotine dependence, cigarettes, uncomplicated; Z20.822 Contact with and (suspected) exposure to COVID-19; I25.2 Old myocardial infarction; Z95.5 Presence of coronary angioplasty implant and graft; Z79.82 Long term (current) use of aspirin; Z95.810 Presence of automatic (implantable) cardiac defibrillator; Z95.820 Peripheral vascular angioplasty status with implants and grafts
CPT/HCPCS: 36415; 36600; 71045; 71046; 71275; 78452; 80048; 80053; 82103; 82104; 82550; 82805; 83735; 84484; 85025; 86738; 87040; 87070; 87205; 87449; 87633; 87637; 87641; 87899; 93005; 93017; 94618; 94640; 94762; 96365; 96375; 99285; A9270; A9502; G0378; J0282; J0696; J1644; J1956; J2785; J7512; Q9967

== ENCOUNTER 2024-01-25 12:23 | Outpatient (CLI) | payer MEDICARE, SELFPAY ==
--- NOTE | 2024-01-26 10:21 | P.PCNPFT_ITS ---
PFT Procedure Performed PFT Procedure Performed Spirometry with Pre/Post Bronchodilator Plethysmography (Lung Vol) Diffusing Cap (DLCO) Flow Vol Loop PFT Interpretation Lung volumes were measured with the body plethysmography method. Lung volumes are unremarkable. Spirometry showed diminished expiratory flow rates and a diminished FEV1 to FVC ratio 53%, indicative of obstructive airway disease. Following administration of a bronchodilator there was significant increase in the forced vital capacity. Lung diffusion capacity is moderately reduced at 51% predicted. The diminished lung diffusion capacity coupled with low alveolar volume and normal DLCO/VA ratio may indicate loss of alveolar capillary s tructure as seen in emphysema or interstitial lung disease. The flow volume loop is consistent with obstructive airway disease. Impression: Moderate obstructive airway disease with significant response to bronchodilators on this testing. Moderately reduced lung diffusion capacity.
--- NOTE | 2024-01-26 10:24 | WPDSIXMINUTE ---
Six Minute Walk Procedure Procedure Performed Pulmonary Stress Test (6 min walk) Six Minute Walk Six Minute Walk: This 6 minute walk test was carried out with the patient breathing ambient air. The baseline at rest oxyhemoglobin saturation was 95%. The patient walked 213 m with no stops during testing. During the walk the oxyhemoglobin saturation remained in the range of 94% to 96%. Impression: No evidence of oxyhemoglobin desaturation on this testing.
== END 2024-01-25 12:24 | disposition home or self-care (01) ==
LOC: ANHPFT 12:26
PROVIDERS: PCP Physician Assistant; Visit Provider Internal Medicine Pulmonary Disease
DX: J44.9 Chronic obstructive pulmonary disease, unspecified (principal)
CPT/HCPCS: 94060; 94618; 94726; 94729

== ENCOUNTER 2024-02-28 09:55 | Outpatient (CLI) | payer MEDICARE, SELFPAY ==
--- NOTE | ~2024-02-28 | CT_ITS ---
EXAMINATION: CT diagnostic chest wo con DATE: 02/28/2024 10:24 INDICATION: R91.1 - Solitary pulmonary nodule TECHNIQUE: Computed tomography (CT) of the chest was performed without intravenous contrast. Addition al 3D reconstructions utilizing coronal maximum intensity projection (MIP) were performed. Automated exposure control and iterative reconstruction technique were employed. The dose-length product was 11 4.05 mGy-cm. COMPARISON: None FINDINGS: Mild emphysema with biapical pleural-parenchymal scarring. Minimal decrease in size of a previously 9 x 4 mm, currently 6 x 3 mm right upper lobe nodule and prior tree-in-bud opacities in the right lowe r lobe have resolved. There is however persistent mucous plugging in the bronchi in the posterior bas ilar segment of the right lower lobe. Unchanged mild discoid atelectasis/scarring at the lingula. The re are a few additional unchanged <4 mm scattered throughout both lungs. No new or enlarging pulmonar y nodules, pulmonary edema or pleural effusion. Heart size normal. Atherosclerotic coronary artery ca lcifications and/or coronary artery stenting. No pericardial effusion. Heart size is normal. No patho logically enlarged thoracic lymphadenopathy. Mild bilateral gynecomastia. Partially visualized stent graft in the infrarenal aorta. Mild thoracic and mild to moderate upper lumbar spondylosis. IMPRESSION: 1. Decrease in size of a previously 9 mm, currently 6 mm right upper lobe nodule nodules in the right upper lobe along with resolution of the prior tree-in-bud opacities in the right lower lobe, both li patricia infectious/inflammatory in etiology. Consider additional 1 year follow-up low-dose noncontrast c hest CT. 2. Mild emphysema. Reviewed, dictated and finalized at location A. IMPRESSION: 1. Decrease in size of a previously 9 mm, currently 6 mm right upper lobe nodul e nodules in the right upper lobe along with resolution of the prior tree-in-bu d opacities in the right lower lobe, both likely infectious/inflammatory in du ology. Consider additional 1 year follow-up low-dose noncontrast chest CT. 2. Mild emphysema.
== END 2024-02-28 09:56 | disposition home or self-care (01) ==
LOC: ANHIMG 09:56
PROVIDERS: PCP Physician Assistant; Visit Provider Internal Medicine Pulmonary Disease
DX: R91.1 Solitary pulmonary nodule (principal); J43.9 Emphysema, unspecified
CPT/HCPCS: 71250; 94625

== ENCOUNTER 2024-05-02 08:11 | Outpatient (CLI) | payer MEDICARE, SELFPAY ==
--- NOTE | 2024-05-02 11:18 | WPDSIXMINUTE ---
Six Minute Walk Procedure Procedure Performed Pulmonary Stress Test (6 min walk) Six Minute Walk Six Minute Walk: This is a 6 minute walk test. The test was performed and interpreted in accordance with the 2014 ERS/ATS task force guidelines. Findings: The patient's resting room air oxygen saturation measured by pulse oximetry was 99% and heart rate was 73 bpm. Patient ambulated for 244 meters and oxygen saturation remained 97 to 98%. Heart rate at the end of the study was 85 bpm. The patient did not qualify for supplemental oxygen at rest or with ambulation. There are no prior studies for comparison.
== END 2024-05-02 08:12 | disposition home or self-care (01) ==
PROVIDERS: PCP Physician Assistant; Visit Provider Internal Medicine Pulmonary Disease
DX: J44.9 Chronic obstructive pulmonary disease, unspecified (principal)
CPT/HCPCS: 94618

== ENCOUNTER 2024-05-06 07:15 | Outpatient (RCR) | payer MEDICARE, SELFPAY ==
[2024-02-06 08:46] VITALS: BP 136/52; PULSE 68; RESP 20; O2SAT 93
[2024-02-06 08:56] VITALS: PULSE 67
== END 2024-05-06 08:45 | disposition home or self-care (01) ==
LOC: ANHCPREHAB 07:15
PROVIDERS: PCP Physician Assistant; Visit Provider Internal Medicine Pulmonary Disease
DX: J44.9 Chronic obstructive pulmonary disease, unspecified (principal)
CPT/HCPCS: 94625

== ENCOUNTER 2024-06-27 13:36 | Outpatient (CLI) | payer MEDICARE, SELFPAY ==
--- NOTE | ~2024-06-27 | CT_ITS ---
Non-contrast CT scan of the Abdomen and Pelvis Clinical indication: BPH Technique: 2.5 mm axial scans were obtained through the abdomen and pelvis without intravenous or or al contrast. Dose reduction technique was used on this scan by utilizing automated exposure control a nd iterative reconstruction technique. The dose-length product (DLP) was 228.36 mGy-cm. Findings: Images through the lung bases reveal no abnormalities. There is no evidence of renal or ureteral calculi. The kidneys and the ureters are nondilated. The liver, spleen, pancreas, gallbladder, and adrenals appear normal. There is an infrarenal abdomina l aortic aneurysm with aortic stent graft in place.. There is no evidence of bowel obstruction. Images through the pelvis were performed. There is no evidence of ascites or lymphadenopathy. Urinary bladder is markedly distended, otherwise unremarkable. Prostate gland mildly enlarged. Impression: Mildly enlarged prostate gland with distended urinary bladder. Aortic stent graft in place, with underlying infrarenal abdominal aortic aneurysm. Reviewed, dictated and finalized at [facility]. [employer] Impression: Mildly enlarged prostate gland with distended urinary bladder. Aortic stent graft in place, with underlying infrarenal abdominal aortic aneury sm.
== END 2024-06-27 13:37 | disposition home or self-care (01) ==
PROVIDERS: PCP Physician Assistant; Visit Provider Urology
DX: N40.0 Benign prostatic hyperplasia without lower urinary tract symptoms (principal); I71.43 Infrarenal abdominal aortic aneurysm, without rupture; Z95.828 Presence of other vascular implants and grafts
CPT/HCPCS: 74176

== ENCOUNTER 2025-04-06 08:05 | Emergency (ER) | payer MEDICARE, SELFPAY ==
--- NOTE | ~2025-04-06 | CT_ITS ---
EXAMINATION: CT abdomen pelvis w con DATE: 04/06/2025 09:27 INDICATION: Constipation. Abdominal pain. TECHNIQUE: Computed tomography (CT) of the abdomen and pelvis was performed with 100 mL Omnipaque-350 intravenous contrast. Automated exposure control and iterative reconstruction technique were employed. The dose-length product was 202.02 mGy-cm. COMPARISON: 02/25/2024 FINDINGS: Unchanged mild linear atelectasis/scarring at the anterior left lung base. Heart size is normal. Atherosclerotic coronary artery calcification. No pericardial or pleural effusion. Liver, gallbladder, spleen, pancreas and bilateral adrenal glands are normal. There are multiple bilateral renal cysts measuring up to 1.6 cm and the left kidney. A couple nonobstructing stones measuring up to 2 mm in the right kidney. Large amount of distal colonic stool with 7.4 x 6.7 cm ball of stool at the rectum suggestive of constipation with fecal impaction. Small bowel and appendix are normal. Prominent distention of the bladder which measures up to 16.8 x 13.1 x 8.8 cm. Mild prostatomegaly measuring 4.6 x 3.1 cm. No free intraperitoneal gas or fluid. No pathologically enlarged abdominal or pelvic lymphadenopathy. There is calcified atherosclerosis of the aorta and many of the other arteries. Aortobiiliac endoluminal stent graft which spans a fusiform infrarenal measuring up to 4.2 x 4.0 cm abdominal aortic aneurysm which is without significant interval change. Mild thoracolumbar dextrocurvature. Moderate disc height loss at L1-L2. Otherwise mild lumbar and lower thoracic spondylosis. IMPRESSION: 1. Large ball of stool at the rectum consistent with constipation and fecal impaction. 2. Mild prostatomegaly with persistent prominent distention of the bladder. 3. Right-sided nonobstructing nephrolithiasis. 4. Unchanged stented fusiform infrarenal abdominal aortic aneurysm measuring up to 4.2 cm. Reviewed, dictated and finalized at location A. IMPRESSION: 1. Large ball of stool at the rectum consistent with constipation and fecal imp action. 2. Mild prostatomegaly with persistent prominent distention of the bladder. 3. Right-sided nonobstructing nephrolithiasis. 4. Unchanged stented fusiform infrarenal abdominal aortic aneurysm measuring up to 4.2 cm.
[2025-04-06 08:30] VITALS: BP 141/78; PULSE 77; RESP 18; TEMP 36.4; O2SAT 100
[2025-04-06 08:33] LABS: Hematocrit 40.9 % (42.0-52.0); Hemoglobin 13.2 g/dL (14.0-18.0); Immature Granulocyte Percent A 0.6 % (0-0.5); Lymphocytes Absolute Auto 1.37 K/mm3 (0.9-3.2); Mean Corpuscular HGB Conc 32.3 g/dl (32-36); Mean Corpuscular Hemoglobin 28.8 pg (26-34); Mean Corpuscular Volume 89.3 fl (80-100); Nucleated Red Blood Cells Absolute Auto 0.000 K/mm3 (0.0-0.012); Nucleated Red Blood Cells Perc 0.0 % (0.0-0.2); Platelet Count Result 315 k/mm3 (150-375); Red Blood Count 4.58 M/mm3 (4.6-6.20); White Blood Count 11.6 K/mm3 (4.5-10.0)
--- NOTE | 2025-04-06 08:38 | ED.GENADULT ---
HPI - General Adult General Chief complaint: GI Bleed Stated complaint: abd pain, gi bleed Time Seen by Provider: 04/06/25 08:30 History of Present Illness HPI narrative: 79-year-old male presenting to the emergency department for evaluation for issues with constipation and rectal bleeding. Patient reports he typically has a bowel movement every other day, he did not have a bowel movement yesterday he was attempting to have a bowel movement this morning and states he needed to bear down so hard that he began having rectal bleeding. Patient states he was not successful with his bowel movement. Related Data Home Medications ?Medication ?Instructions ?Recorded ?Confirmed ?Last Taken ?Type Claritin 10 mg PO AC PRN Allergy Symptoms 08/04/19 10/21/24 11/29/23 09:00 History 10 rosuvastatin 20 mg tablet 40 mg PO HS 08/04/19 10/21/24 11/28/23 21:00 History 20 aspirin 325 mg tablet 325 mg PO DAILY 10/11/23 10/21/24 11/29/23 09:00 History 325 duloxetine 60 mg capsule,delayed 60 mg PO DAILY 10/11/23 10/21/24 11/29/23 09:00 History release 60 finasteride 5 mg PO DAILY 10/11/23 10/21/24 11/29/23 09:00 History 5 folic acid 800 mcg PO DAILY 10/11/23 10/21/24 11/29/23 09:00 History 800 metoprolol tartrate 50 mg tablet 25 mg PO BID 10/11/23 10/21/24 11/29/23 09:00 History 25 tamsulosin 0.4 mg capsule 0.4 mg PO QPM 10/11/23 10/21/24 11/28/23 21:00 History 0.4 Allergies Allergy/AdvReac Type Severity Reaction Status Date / Time lisinopril Allergy Mild Swelling Verified 04/06/25 08:38 Review of Systems Review of Systems: All systems reviewed & are unremarkable except as noted in HPI and below [facility] Past Medical History Medical History Peripheral vascular disease s/p bilateral lower extremity stents Anxiety Depression Urinary tract infection Bronchitis Emphysema (subcutaneous) (surgical) resulting from a procedure COPD (chronic obstructive pulmonary disease) Hypertension Hypercholesterolemia Presence of combination internal cardiac defibrillator (ICD) and pacemaker Coronary artery disease Myocardial infarction Cardiac arrest September 2014, 2 stents placed Bilateral cataracts Surgical History Surgical History Hx of endovascular stent graft for abdominal aortic aneurysm x3 History of heart artery stent x4 Family History Family History Mother Hypertension Heart disease Diabetes mellitus Father Lung cancer Social History Social History Smoking packs per day: 1 Smoking cigarettes per day: 20.0 Years smoked: 63 Smoking pack-years: 63.00 Smoking status: Current every day smoker Tobacco type: cigarettes Second hand tobacco smoke exposure: No Additional smoking assessment comments: Patient states that he smokes but doesn't inhale. Alcohol intake: never Substance use: never Substance use type: does not use Do You Feel Safe in your Home?: Yes Lack of Transportation: YES Lack of Food: Never True Current Housing: I Have Housing Concerned About Future Housing: No Difficulty Paying Gas/Electric Bills: No Difficulty Paying for Meds: No Currently Unemployed: No Education: Associate Degree Difficulty w/ Childcare or Family Care: No Gender identity (if verbalized by the patient): Male Spiritual care concerns: No Exam Narrative: APPEARANCE: Well appearing, no pain, no distress, well-nourished. HEAD: normocephalic, atraumatic. EYES: PERRLA/EOMI, conjunctivae clear. NOSE: Normal no drainage EARS:TMS clear with good light reflex. THROAT: Pharynx clear, no exudate. NECK: Supple. No adenopathy, no masses. RESPIRATORY: Airway patent, respirations nonlabored. Clear to auscultation bilaterally, no rales, rhonchi, wheezing. CARDIOVASCULAR: Regular rate and rhythm without murmurs rubs or gallops. ABDOMINAL: Soft, nontender, nondistended, normal bowel sounds MUSCULOSKELETAL: Moves all extremities. Strength/ROM intact, No edema, No calf tenderness. NEURO: Alert. Cranial nerves II through XII intact. Grossly intact rectal exam: External hemorrhoids that are not thrombosed, large stool ball within the rectal vault, patient did not tolerate rectal disimpaction SKIN: Warm, dry. Normal Color Course Vital Signs Vital signs: Vital Signs Temperature 97.5 F L 04/06/25 08:30 Pulse Rate 77 04/06/25 08:30 Respiratory Rate 18 04/06/25 08:30 Blood Pressure 141/78 H 04/06/25 08:30 Pulse Oximetry 100 04/06/25 08:30 Oxygen Delivery Room Air 04/06/25 08:30 Temperature 97.5 F L 04/06/25 08:30 Pulse Rate 71 04/06/25 11:00 Respiratory Rate 16 04/06/25 11:00 Blood Pressure 136/88 04/06/25 11:00 Pulse Oximetry 98 04/06/25 11:00 Oxygen Delivery Room Air 04/06/25 08:30 Procedures Rectal Disimpaction Rectal Disimpaction #1: Rectal Disimpaction Date: 04/06/25 Rectal Disimpaction Time: 08:40 Time out performed rectal disimpaction: Yes Indication: fecal impaction Procedural Sedation: No Sedation/Analgesia: none Technique: manual disimpaction with gloved finger Result: significant stool output ( small amount of stool output) Complications: unable to tolerate Additional Comments: small amount of stools were achieved but the bulk the stool was not able to be disimpacted Medical Decision Making MDM Narrative Medical decision making narrative: 79-year-old male presents to the emergency department for evaluation for constipation. Patient is currently afebrile but does have a leukocytosis 11.6 and hemoglobin of 13.2. INR is 1.1. No acute abnormalities on his CMP patient did have significant stool output secondary to the soapsuds enema. CT scan was obtained prior to the successful enema and does show large fecal stool ball. Or on re-examination patient feels significantly improved. Differential Diagnosis Differential Diagnosis: Constipation, diverticulitis, colitis, bowel obstruction Vital Signs Vital Signs: Vital Signs Temperature 97.5 F L 04/06/25 08:30 Pulse Rate 77 04/06/25 08:30 Respiratory Rate 18 04/06/25 08:30 Blood Pressure 141/78 H 04/06/25 08:30 Pulse Oximetry 100 04/06/25 08:30 Oxygen Delivery Room Air 04/06/25 08:30 Temperature 97.5 F L 04/06/25 08:30 Pulse Rate 71 04/06/25 11:00 Respiratory Rate 16 04/06/25 11:00 Blood Pressure 136/88 04/06/25 11:00 Pulse Oximetry 98 04/06/25 11:00 Oxygen Delivery Room Air 04/06/25 08:30 Lab Data Lab results reviewed: Yes I reviewed the patient's lab results. 04/06/25 08:27 04/06/25 08:27 Labs: Lab Results 04/06/25 Range/Units 08:27 WBC 11.6 H (4.5-10.0) K/mm3 RBC 4.58 L (4.6-6.20) M/mm3 Hgb 13.2 L D (14.0-18.0) g/dL Hct 40.9 L (42.0-52.0) % MCV 89.3 (80-100) fl MCH 28.8 (26-34) pg MCHC 32.3 (32-36) g/dl RDW 14.3 (11.5-14.5) % Plt Count 315 (150-375) k/mm3 MPV 9.4 (7.4-10.4) fl Immature Gran % (Auto) 0.6 H (0-0.5) % Neut % (Auto) 75.6 H (45.5-73.1) % Lymph % (Auto) 11.8 L (18.3-44.2) % [place] % (Auto) 9.0 H (2.6-8.5) % Eos % (Auto) 2.5 (0-4.4) % Baso % (Auto) 0.5 (0.2-1.2) % Lymph # (Auto) 1.37 (0.9-3.2) K/mm3 [place] # (Auto) 1.0 H (0.1-0.6) K/mm3 Eos # (Auto) 0.3 (0-0.3) K/mm3 Baso # (Auto) 0.1 (0.0-0.1) K/mm3 Abs Immat Gran (auto) 0.07 H (0.00-0.031) K/mm3 Absolute Neuts (auto) 8.8 H (1.3-6.7) K/mm3 Absolute Nucleated RBC 0.000 (0.0-0.012) K/mm3 Nucleated RBC % 0.0 (0.0-0.2) % PT 14.6 (11.1-14.7) Seconds INR 1.1 APTT 27.6 (22.3-36.8) Seconds Sodium 132 L (137-145) mmol/L Potassium 3.6 (3.4-5.0) mmol/L Chloride 100 (98-107) mmol/L Carbon Dioxide 24 (22-30) mmol/L Anion Gap 8 (4-12) mmol/L BUN 17 (9-20) mg/dL Creatinine 1.01 (0.7-1.3) mg/dL Estim Creat Clear Calc 45 ml/min Estimated GFR > 60 (59 - ) Glucose 127 H (65-110) mg/dL Calcium 9.3 (8.4-10.2) mg/dL Total Bilirubin 0.5 (0.2-1.3) mg/dL AST 30 (17-59) U/L ALT 16 (6-50) U/L Alkaline Phosphatase 71 (38-126) U/L Total Protein 7.8 (6.3-8.2) g/dL Albumin 4.1 (3.5-5.1) g/dL Blood Type A Positive Antibody Screen Negative Imaging Data Radiologist's impression: Impressions Abdomen/Pelvis CT 04/06/25 10:06 IMPRESSION: 1. Large ball of stool at the rectum consistent with constipation and fecal impaction. 2. Mild prostatomegaly with persistent prominent distention of the bladder. 3. Right-sided nonobstructing nephrolithiasis. 4. Unchanged stented fusiform infrarenal abdominal aortic aneurysm measuring up to 4.2 cm. Discharge Plan Discharge Clinical Impression: Acute hemorrhoid, Constipation Patient Disposition: Home Condition: Stable Instructions: Antibiotic Form, Constipation (ED), Hemorrhoids (ED) Additional Instructions: MiraLax as directed to help soften your stools. Drink plenty of water. [id number] hemorrhoid treatment as needed. Have close follow-up with your primary care physician. If you have any worsening symptoms please call or return to the emergency department. Patient Language: Persian Prescriptions: No Action rosuvastatin 20 mg tablet 40 mg PO HS Claritin 10 mg PO AC PRN (Reason: Allergy Symptoms) ipratropium-albuterol 0.5 mg-3 mg(2.5 mg base)/3 mL solution for nebulization 3 ml inhalation QID Qty: 180 6RF budesonide 0.5 mg/2 mL suspension for nebulization 0.5 mg inhalation BID Qty: 60 6RF azelastine 137 mcg (0.1 %) spray,non-aerosol 137 mcg intranasal . q.h.s. Qty: 30 3RF Rx Instructions: administer into each nostril q.h.s. to spray aspirin 325 mg Tablet 325 mg PO DAILY tamsulosin 0.4 mg capsule 0.4 mg PO QPM metoprolol tartrate 50 mg tablet 25 mg PO BID duloxetine 60 mg capsule,delayed release(DR/EC) 60 mg PO DAILY finasteride 5 mg PO DAILY folic acid 800 mcg PO DAILY albuterol sulfate 90 mcg inhalation Q4HWA PRN (Reason: Shortness Of Breath) Qty: 1 2RF Follow-up/Referrals: Candelaria,UMA Ordoñez [Primary Care Provider, Unknown]
[2025-04-06 08:47] LABS: INR 1.1; Prothrombin Time 14.6 Seconds (11.1-14.7)
[2025-04-06 08:48] LABS: Partial Thromboplastin Time 27.6 Seconds (22.3-36.8)
--- OUTSIDE RECORDS SUMMARY | 2025-04-06 08:50 | XMS_ITS | Clinical Summary ---
[place] [facility] [address] Address [address] [place] [address] Care Team Providers Care Educational Speech Language Clinician Name Role Phone Smita Gaona Primary Care Provider [phone] Elliot Kerr MD Unavailable [phone] Manuel Jade MD Unavailable Ilan Merlos MD Unavailable [phone] Allergies Active Allergy Reactions Criticality Noted Date Comments Lisinopril Anaphylaxis High 11/13/2018 Medications omega-3 fatty acids-fish oil 340-1,000 mg capsule take 1 by Oral route 3 times every 0 012 Active Additional Information Patient not taking.Informant: Self, Reported on 03/26/2025 aspirin 325 mg tablet take 1 Tablet by oral route every day 0 0 015 Active loratadine (CLARITIN) 10 mg tabletIndications :Allergic Rhinitis Take 1 tablet (10 mg total) by mouth pathology manager before breakfast Active folic acid (FOLVITE) 800 mcg tabletIndications :Folate Deficiency Take 1 tablet (800 mcg total) by mouth pathology manager before breakfast Active cyanocobalamin (Vitamin B-12) 1,000 mcg tabletIndications :Prevention of Vitamin B12 Deficiency Take 1 tablet (1,000 mcg total) by mouth pathology manager before breakfast Active tamsulosin (FLOMAX) 0.4 mg extended release capsuleIndication s:benign prostatic hyperplasia with lower urinary tract sx Take 1 capsule (0.4 mg total) by mouth daily with dinner 30 capsule 023 Active Additional Information Patient not taking.Reported on 03/26/2025 finasteride (PROSCAR) 5 mg tablet Take 1 tablet (5 mg total) by mouth daily Active albuterol HFA (PROVENTIL HFA,VENTOLIN HFA,PROAIR HFA) 90 mcg/actuation inhaler Inhale 2 puffs every 4 (four) hours as needed for wheezing 3 each 1 024 Active rosuvastatin (CRESTOR) 40 mg tabletIndications :Mixed hyperlipidemia Take 1 tablet by mouth once daily 90 tablet 025 Active metoprolol tartrate (LOPRESSOR) 50 mg immediate release tabletIndications :Essential hypertension Take 1 tablet by mouth twice daily 180 tablet 025 Active fluticasone-umecl idin-vilanter (Trelegy Ellipta) 200-62.5-25 mcg inhaler Inhale 1 puff daily 3 each [address] (CYMBALTA) 60 mg capsule Take 1 capsule (60 mg total) by mouth 2 (two) times a day 180 capsule 1 025 Active nitroglycerin (Nitrostat) 0.4 mg SL tabletIndications :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 Place 1 tablet (0.4 mg total) under the tongue every 5 (five) minutes as needed for chest pain 50 tablet 1 025 Active bethanechol (URECHOLINE) 25 mg tablet Take 1 tablet (25 mg total) by mouth daily 90 tablet 1 025 Active nitroglycerin (Nitrostat) 0.4 mg SL tabletIndications :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 Place 1 tablet (0.4 mg total) under the tongue every 5 (five) minutes as needed for chest pain 50 tablet 1 022 2024 Discontinued(R eorder) levoFLOXacin (LEVAQUIN) 750 mg tablet Take 1 tablet (750 mg total) by mouth daily [address] (CYMBALTA) 60 mg capsule Take 1 capsule (60 mg total) by mouth daily 90 capsule 1 024 2024 Discontinued(R eorder) rosuvastatin (CRESTOR) 40 mg tabletIndications :Mixed hyperlipidemia Take 1 tablet by mouth once daily 90 tablet 1 024 2024 Discontinued bethanechol (URECHOLINE) 25 mg tablet Take 1 tablet (25 mg total) by mouth daily 025 2024 Discontinued(R eorder) metoprolol tartrate (LOPRESSOR) 50 mg immediate release tabletIndications :Essential hypertension Take 1 tablet by mouth twice daily 180 tablet 025 2024 Discontinued Active Problems Problem Noted Date Diagnosed Date Generalized weakness 04/05/2025 Poor nutrition 04/05/2025 Medicare annual wellness visit, subsequent 09/16 Assessment & Plan (09/16/2024 6:33 AM DERMATOLOGIST MANAGING PARTNER): Encouraged healthy lifestyle, good nutrition and exercise. Encouraged Calcium and Vitamin D and weight bearing exercise for bone health. Reviewed immunizations. Reviewed age appropirate screenings. Medicare Wellness Documentation is completed within the chart Forms completed for admission to [facility]. Benign prostatic hyperplasia without lower urinary tract symptoms 09/16/2024 Assessment & Plan (09/16/2024 6:28 AM DERMATOLOGIST MANAGING PARTNER): Continue finasteride and tamsulosin Slow transit constipation 04/06/2024 Assessment & Plan (09/16/2024 6:31 AM DERMATOLOGIST MANAGING PARTNER): Patient continues with the Colace to help with constipation. Increase exercise and fluids Assessment & Plan (04/06/2024 10:50 PM CDT): Constipation is better with the Colace. Continue to monitor. Increase fluids and exercise Pulmonary nodule 12/14/2023 Overview (12/14/2023): 10/10/2023 CTA chest at [place]: 7mm right upper lobe pulmonary nodule suspicious for primary bronchogenic carcinoma. Non-contrast LDCT chest is recommended in 01/2024 Assessment & Plan (12/14/2023 11:34 AM CDT): 10/10/2023 CTA chest at [place]: 7mm right upper lobe pulmonary nodule suspicious for primary bronchogenic carcinoma. Non-contrast LDCT chest is recommended in 01/2024 Need for vaccination 06/11/2023 Assessment & Plan (09/16/2024 6:33 AM DERMATOLOGIST MANAGING PARTNER): Prevnar 20 updated in office today Assessment & Plan (06/11/2023 2:19 PM DERMATOLOGIST MANAGING PARTNER): Flu vaccine updated in the office Cigarette smoker 06/11/2023 Assessment & Plan (09/16/2024 6:31 AM DERMATOLOGIST MANAGING PARTNER): Encouraged smoking cessation. Discussed 3 minutes. Reviewed options for assistance with cessation. Reviewed long chain beamer sequela associated with smoking. Pt declines assistance at this time but may contact the office at anytime for further help as they desire. Assessment & Plan (04/06/2024 10:52 PM CDT): Encouraged smoking cessation. Discussed 3 minutes. Reviewed options for assistance with cessation. Reviewed halfway sequela associated with smoking. Pt declines assistance at this time but may contact the office at anytime for further help as they desire. Assessment & Plan (01/05/2024 11:30 PM CDT): Strongly encouraged complete smoking cessation. Patient is not ready to quit at this point Assessment & Plan (10/27/2023 10:00 PM CDT): Encouraged smoking cessation. Discussed 3 minutes. Reviewed options for assistance with cessation. Reviewed halfway sequela associated with smoking. Pt declines assistance at this time but may contact the office at anytime for further help as they desire. Assessment & Plan (10/02/2023 10:07 AM DERMATOLOGIST MANAGING PARTNER): Encouraged smoking cessation. Discussed 3 minutes. Reviewed options for assistance with cessation. Reviewed halfway sequela associated with smoking. Pt declines assistance at this time but may contact the office at anytime for further help as they desire. Assessment & Plan (06/11/2023 2:19 PM DERMATOLOGIST MANAGING PARTNER): Encouraged smoking cessation. Discussed 3 minutes. Reviewed options for assistance with cessation. Reviewed long chain beamer sequela associated with smoking. Pt declines assistance at this time but may contact the office at anytime for further help as they desire. BMI 21.0-21.9, adult 01/16/2023 Assessment & Plan (03/26/2025 10:28 AM CDT): Weight/BMI is in healthy range. Continue healthy lifestyle to maintain. Assessment & Plan (09/02/2024 2:46 PM DERMATOLOGIST MANAGING PARTNER): Weight/BMI is in healthy range. Continue healthy lifestyle to maintain. Assessment & Plan (04/06/2024 10:52 PM CDT): Weight/BMI is in healthy range. Continue healthy lifestyle to maintain. Assessment & Plan (01/16/2023 9:38 AM CDT): Weight/BMI is in healthy range. Continue healthy lifestyle to maintain. PVD (peripheral vascular disease) 12/14/2022 Assessment & Plan (09/16/2024 6:30 AM DERMATOLOGIST MANAGING PARTNER): Status post stenting in his legs. Vascular has released him and his legs are feeling better although still has some neuropathy at times. Looking forward to getting out and golfing. He is on an aspirin Assessment & Plan (12/14/2022 8:00 AM CDT): His legs feel weak with minimal ambulation. It was discussed with the patient that his leg weakness and neuropathy signs affecting his feet with numbness are not related to PVD. Only the thigh and hip discomfort particularly on the right side with ambulation is due to his PVD. He has discomfort in the left leg well which is not related to underlying PVD. He had an VINCENT which was 0.82 on the right and 0.86 on the left. -Continue ASA and statin AAA (abdominal aortic aneurysm) without rupture 12/14/2022 Neuropathy 12/11/2022 Assessment & Plan (12/11/2022 9:31 PM CDT): Patient has neuropathy symptoms. He also has depression symptoms discussed Cymbalta that can help with both. Reviewed risks benefits alternatives side effects and proper use. Will start at 30 mg daily reassess in about 4-6 weeks to determine if increase his appropriate. Infrarenal abdominal aortic aneurysm (AAA) witho ut rupture 11/14/2022 Overview (01/15/2023): 12/14/2022 for EVAR and bilateral iliac stent placement Assessment & Plan (01/15/2023 8:21 PM CDT): 12/14/2022 for EVAR and bilateral iliac stent placement Continue per vascular at [facility] Assessment & Plan (12/16/2022 8:30 AM CDT): S/p OR 12/14/2022 for EVAR and bilateral iliac stent placement - Weaned from phenylephrine POD #1 - Regular diet - OOB/ambulate with assist Assessment & Plan (12/11/2022 9:30 PM CDT): Planning surgical repair with surgeon. Iliac artery stenosis, right 11/14/2022 Overview (01/15/2023): 12/14/2022 for EVAR and bilateral iliac stent placement Assessment & Plan (01/15/2023 8:21 PM CDT): 12/14/2022 for EVAR and bilateral iliac stent placement Continue per vascular at [facility] Assessment & Plan (12/11/2022 9:30 PM CDT): Planning surgical repair with surgeon Abnormal CT lung screening 05/21/2022 Assessment & Plan (05/21/2022 2:28 PM CDT): This is a significant, separately identifiable problem that was evaluated and managed on the same day as the wellness exam Low-dose CT done in February showed changes. Needs to follow up in 6 months which would be August of 2022. Order placed. Claudication 05/21/2022 Assessment & Plan (08/28/2022 9:28 PM DERMATOLOGIST MANAGING PARTNER): Arterial studies did confirm claudication. started him on Pletal. Patient thinks he may be seen some results. Will continue to monitor Assessment & Plan (05/21/2022 2:29 PM CDT): This is a significant, separately identifiable problem that was evaluated and managed on the same day as the wellness exam Patient is complaining of increased fatigue and weakness especially in the legs. He has almost given out golfing completely which he had been doing for years multiple times a week. He states he can not walk the course. He can barely walk more than a block or so without having immediate discomfort to the point where he just feels like his legs are tired and he has to rest. Has history of bypass, CAD. Has never had a workup for claudication. He is on Crestor. Will start with arterial studies of the bilateral lower extremities. Discussed if these do reveal blockage in the lower extremities will refer to vascular. He prefers to have these done at [facility] as he would want to use the vascular group at [facility]. COPD (chronic obstructive pulmonary disease) 04/2019 Assessment & Plan (09/16/2024 6:30 AM DERMATOLOGIST MANAGING PARTNER): Patient has stopped as inhalers. Using ProAir as needed. He is very congested with quite a bit of rhonchi. Discussed different inhaler and he declined. Offered referral to pulmonology and he also declined at this point Assessment & Plan (04/06/2024 10:50 PM CDT): Patient has COPD. He stopped the Anoro as he did not think it was helping. Has ProAir if he needs it. Offered referral to Pulmonary and he still declines. Assessment & Plan (06/11/2023 2:18 PM DERMATOLOGIST MANAGING PARTNER): Strongly encouraged complete smoking cessation. He is not quite ready. Using ProAir p.r.n.. He still is not interested in a daily medication Assessment & Plan (02/27/2023 7:44 PM CDT): Patient has COPD. He states he does not feel like he has difficulty breathing even though his exam had very loud adventitious breath sounds. Offered Breztri and or albuterol p.r.n. and he declines both. May call at any time for assistance encouraged smoking cessation Assessment & Plan (01/15/2023 8:19 PM CDT): Stop smoking. No s/s infection Continue inhalers as instructed. Assessment & Plan (08/28/2022 9:26 PM DERMATOLOGIST MANAGING PARTNER): Encouraged smoking cessation. He stop the Anoro due to cost and did not think it was helping. Has ProAir but not use in his regular. Will refer to pulmonology if he desires but at this point wants to monitor. Assessment & Plan (05/21/2022 2:23 PM CDT): Patient with COPD. He stops all the inhalers as did not think it was helping. Due to repeat low-dose CT as needed a six-month follow-up. Encouraged her to restart inhalers as he has significant lung changes. Refuses to consider seeing Pulmonary. Encouraged smoking cessation. Assessment & Plan (12/19/2021 5:42 PM CDT): Encourage complete smoking cessation. He stop the in RO and has just been using albuterol. Encouraged him to return to the daily medication for control. Offered referral to probable Neurology if he desires but this point he declines. Assessment & Plan (05/31/2021 11:53 AM CDT): Patient has tried Anoro as well as other inhalers and does not like them. Uses the albuterol p.r.n. which ends up being once a month if that. He states he has no difficulty breathing wants to continue to monitor. Assessment & Plan (11/26/2020 1:15 PM CDT): Stop smoking. Continue Anoro and Albuterol Assessment & Plan (05/23/2020 11:00 AM CDT): Stop Smoking. Continue inhalers. Call if has increased SOB or requires more regular use of his rescue inhaler to try to stay ahead of an exacerbation. Assessment & Plan (09/01/2019 6:59 PM DERMATOLOGIST MANAGING PARTNER): Stop smoking Continue inhalers. Assessment & Plan (03/21/2019 7:56 PM CDT): This is a significant, separately identifiable problem that was evaluated and managed on the same day as the wellness exam Patient is tolerating the Anoro. Didn't think the Bevespi helped much. Continue with the ProAir p.r.n.. Encourage smoking cessation. At this point patient does not feel like he is having difficulty with breathing so just wants to continue to monitor. Encouraged flu shot. Will provide pneumonia 23 today to try to decrease exacerbations/infections. Angioedema 03/15/2019 Assessment & Plan (09/01/2019 7:00 PM DERMATOLOGIST MANAGING PARTNER): Avoid JONATAN---still could be other products but doesn't want to see scout leaser. Assessment & Plan (03/21/2019 7:57 PM CDT): This is a significant, separately identifiable problem that was evaluated and managed on the same day as the wellness exam Still concerned about these episodes. Keep Benadryl close. Encouraged to consider referral but pt declines again at this time. Recurrent major depressive disorder, in partial remission 03/15/2019 Assessment & Plan (04/06/2024 10:50 PM CDT): Depression symptoms are stable with Cymbalta Assessment & Plan (01/05/2024 11:32 PM CDT): Stable with Cymbalta 60 Assessment & Plan (06/11/2023 2:18 PM DERMATOLOGIST MANAGING PARTNER): Depression is stable with the Cymbalta. Assessment & Plan (01/15/2023 8:19 PM CDT): Has done well with Cymbalta 30. Will increase for depression as well as neuropathy symptoms to 60 mg daily. New refills sent Assessment & Plan (05/21/2022 2:24 PM CDT): Stable without medication. Continue to monitor. He has been feeling down because he just feels so tired and that his legs are tired. Will work through the claudication symptoms and if the symptoms continue may consider restarting medication. Assessment & Plan (12/19/2021 5:43 PM CDT): Stable currently without medication will continue to monitor closely as he stop the Wellbutrin on his own in the last few months Assessment & Plan (05/31/2021 11:54 AM CDT): Continue Wellbutrin a symptoms are stable. Assessment & Plan (05/23/2020 11:01 AM CDT): Continue the Wellbutrin Assessment & Plan (09/01/2019 7:02 PM DERMATOLOGIST MANAGING PARTNER): Stable with Wellbutrin Assessment & Plan (03/21/2019 10:54 AM CDT): Stable with the Wellbutrin. Continue to monitor. Anxiety 03/15/2019 Assessment & Plan (05/31/2021 11:54 AM CDT): Stable Wellbutrin. Assessment & Plan (05/23/2020 11:03 AM CDT): See depression Assessment & Plan (09/01/2019 7:01 PM DERMATOLOGIST MANAGING PARTNER): Continue Wellbutrin Assessment & Plan (03/21/2019 10:53 AM CDT): Stable with the Wellbutrin. 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 He presented to [facility] with ischemic symptomatology in September of 2014. He underwent follow-up angiography demonstrating his LAD to be patent but he had high-grade stenosis in the largest OM circumflex branch. This was addressed with PTCA and stenting with resolution of his ischemic symptoms. Assessment & Plan (09/16/2024 6:29 AM DERMATOLOGIST MANAGING PARTNER): Continue per Cardiology. Continue beta-thor statin and aspirin Assessment & Plan (04/06/2024 10:51 PM CDT): Continue per Cardiology. He is on statin aspirin and a beta-thor Assessment & Plan (06/11/2023 2:17 PM DERMATOLOGIST MANAGING PARTNER): Continue per Cardiology. Blood pressure stable. Continue statin and aspirin. He is also on a beta-thor Assessment & Plan (01/15/2023 8:20 PM CDT): Continue per Cardiology. Continue aspirin statin and blood pressure control Will plan to restart the beta-thor as his blood pressure is able to allow Assessment & Plan (08/28/2022 9:27 PM DERMATOLOGIST MANAGING PARTNER): Continue per cardio at [facility]. Patient is on beta-thor and aspirin and statin Assessment & Plan (12/19/2021 5:43 PM CDT): Patient on beta-thor calcium channel thor as well as statin. Has nitro p.r.n. and is on aspirin Assessment & Plan (05/31/2021 11:57 AM CDT): Continue per Cardio. On BB, Statin and ASA Assessment & Plan (11/26/2020 1:16 PM CDT): Continue ASA and BB and statin Assessment & Plan (05/23/2020 10:58 AM CDT): Continue per Cardio. On BB, statin and ASA Assessment & Plan (09/06/2019 1:24 PM DERMATOLOGIST MANAGING PARTNER): Stable, without recent angina. He has coronary calcification, as expected. I made no change in his excellent medical regimen today, except to increase Crestor to 40 mg daily empirically. I asked him to follow up with me on an as-needed basis only. He will follow up with his usual reservationist regularly. I advised him to continue to diet and exercise regularly, and to stop smoking completely. Assessment & Plan (09/01/2019 6:59 PM DERMATOLOGIST MANAGING PARTNER): On ASA. Continue with Cardio Assessment & Plan (03/21/2019 10:51 AM CDT): Stable. On beta-thor. Continue per Dr. Kerr. Mixed hyperlipidemia 03/15/2019 Assessment & Plan (09/16/2024 6:29 AM DERMATOLOGIST MANAGING PARTNER): Encouraged patient to follow low fat/low chol diet like the Mediterranean diet. Increase good fats in the diet. Increase exercise. Monitor labs as needed. Continue Crestor Assessment & Plan (04/06/2024 10:51 PM CDT): Encouraged patient to follow low fat/low chol diet like the Mediterranean diet. Increase good fats in the diet. Increase exercise. Monitor labs as needed. Continue Crestor Assessment & Plan (10/02/2023 10:07 AM DERMATOLOGIST MANAGING PARTNER): Encouraged patient to follow low fat/low chol diet like the Mediterranean diet. Increase good fats in the diet. Increase exercise. Monitor labs as needed. Continue Crestor Assessment & Plan (06/11/2023 2:17 PM DERMATOLOGIST MANAGING PARTNER): Encouraged patient to follow low fat/low chol diet like the Mediterranean diet. Increase good fats in the diet. Increase exercise. Monitor labs as needed. Continue Crestor Assessment & Plan (01/29/2023 5:20 PM CDT): Encouraged patient to follow low fat/low chol diet like the Mediterranean diet. Increase good fats in the diet. Increase exercise. Monitor labs as needed. Increase the Crestor to 40. Assessment & Plan (01/15/2023 8:20 PM CDT): Encouraged patient to follow low fat/low chol diet like the Mediterranean diet. Increase good fats in the diet. Increase exercise. Monitor labs as needed. Continue statin Assessment & Plan (08/28/2022 9:27 PM DERMATOLOGIST MANAGING PARTNER): Encouraged patient to follow low fat/low chol diet like the Mediterranean diet. Increase good fats in the diet. Increase exercise. Monitor labs as needed. Continue Crestor Assessment & Plan (05/21/2022 2:25 PM CDT): Encouraged patient to follow low fat/low chol diet like the Mediterranean diet. Increase good fats in the diet. Increase exercise. Monitor labs as needed. Continue Crestor Assessment & Plan (12/19/2021 5:43 PM CDT): Encouraged patient to follow low fat/low chol diet like the Mediterranean diet. Increase good fats in the diet. Increase exercise. Monitor labs as needed. Continue Crestor Assessment & Plan (05/31/2021 11:57 AM CDT): Encouraged patient to follow fat/low chol diet like the Mediterranean diet. Increase good fats in the diet. Increase exercise. Monitor labs as needed. Continue Crestor Assessment & Plan (11/26/2020 1:17 PM CDT): Encouraged patient to follow fat/low chol diet like the Mediterranean diet. Increase good fats in the diet. Increase exercise. Monitor labs as needed. Continue statin Assessment & Plan (05/23/2020 11:01 AM CDT): Encouraged patient to follow fat/low chol diet like the Mediterranean diet. Increase good fats in the diet. Increase exercise. Monitor labs as needed. Continue statin Assessment & Plan (09/06/2019 1:19 PM DERMATOLOGIST MANAGING PARTNER): Lipids are well controlled. As above, I empirically increased Crestor to 40 mg daily. Assessment & Plan (09/01/2019 7:00 PM DERMATOLOGIST MANAGING PARTNER): Encouraged patient to continue low fat/low chol diet. Continue exercise. Increase good fats in the diet. Monitor labs as needed. Assessment & Plan (03/21/2019 10:53 AM CDT): Encouraged patient to continue low fat/low chol diet. Continue exercise. Increase good fats in the diet. Monitor labs as needed. Essential hypertension 03/15/2019 Assessment & Plan (09/16/2024 6:28 AM DERMATOLOGIST MANAGING PARTNER): Bp is stable/in acceptable range for any co-morbidities. Encouraged to limit sodium intake and exercise for weight control. Continue Lopressor 50 mg . He has only been taking a half tab in the morning. Strongly encouraged him to take a half tab b.i.d.. Assessment & Plan (04/06/2024 10:51 PM CDT): Bp is stable/in acceptable range for any co-morbidities. Encouraged to limit sodium intake and exercise for weight control. Continue Lopressor half tab b.i.d. Assessment & Plan (10/02/2023 10:07 AM DERMATOLOGIST MANAGING PARTNER): Bp is stable/in acceptable range for any co-morbidities. Encouraged to limit sodium intake and exercise for weight control. Continue per Cardiology. Continues with Lopressor 50 mg half tab twice a week Assessment & Plan (06/11/2023 2:17 PM DERMATOLOGIST MANAGING PARTNER): Bp is stable/in acceptable range for any co-morbidities. Encouraged to limit sodium intake and exercise for weight control. Continue the Lopressor. Encouraged take a half tab b.i.d. call with readings in a week to make sure that they have stabilized and are well controlled Assessment & Plan (02/27/2023 7:43 PM CDT): Continue metoprolol XL 25. Strongly encouraged him to bring his medicines in tomorrow so that I can review them as it looks like he has Caduet combination of amlodipine and atorvastatin but also has Crestor on his list. Need to review his bottles to see what he is actually taking. He denies any dizziness even with systolic around 100. Assessment & Plan (01/29/2023 5:22 PM CDT): Instructed patient to continue to monitor closely. Still running a little soft. He is on metoprolol XL 25 and then using amlodipine only if the systolic reaches above 140. He states it is only been a few times since discharge he is had to use it. Continue with this plan. Advised patient if he starts using the amlodipine more than about 4-5 days a week then probably just needs to start taking it daily. He verbalizes understanding and agreement with the plan. May call at any time for advice Assessment & Plan (01/15/2023 8:21 PM CDT): Bp is stable/in acceptable range for any co-morbidities. Encouraged to limit sodium intake and exercise for weight control. Pre-surgical regimen including amlodipine hydrochlorothiazide and metoprolol. All medicines were held. He is restarted a quarter dose of the metoprolol and his blood pressures are low normal. Will continue to monitor. Have nurse check readings in about a week and continue to titrate up as his blood pressure will allow Assessment & Plan (12/16/2022 8:29 AM CDT): Home regimen: Amlodipine, HCTZ and Metoprolol -Holding home meds d/t hypotension. Resume when able. -12/15: Requiring Phenylphrine gtt, weaned 12/15 afternoon - Continue to hold home medications, will instruct to monitor BP as an outpatient/follow up with PCP Assessment & Plan (08/28/2022 9:28 PM DERMATOLOGIST MANAGING PARTNER): Bp is stable/in acceptable range for any co-morbidities. Encouraged to limit sodium intake and exercise for weight control. Continue Lopressor hydrochlorothiazide and Norvasc per Cardiology Assessment & Plan (05/21/2022 2:25 PM CDT): Bp is stable/in acceptable range for any co-morbidities. Encouraged to limit sodium intake and exercise for weight control. Continue Lopressor hydrochlorothiazide and amlodipine. Continue per Cardiology Assessment & Plan (12/19/2021 5:44 PM CDT): Bp is stable/in acceptable range for any co-morbidities. Encouraged to limit sodium intake and exercise for weight control. Continue Lopressor hydrochlorothiazide and Norvasc. Assessment & Plan (05/31/2021 11:57 AM CDT): Bp is stable/in acceptable range for any co-morbidities. Encouraged to limit sodium intake and exercise for weight control. Continue Lopressor, hydrochlorothiazide, Norvasc. Assessment & Plan (11/26/2020 1:16 PM CDT): Bp is stable/in acceptable range for any co-morbidities. Encouraged to limit sodium intake and exercise for weight control. Continue amlodipine 2.5, Lopressor 50 and cut the HCTZ in half to 12/5 Assessment & Plan (05/23/2020 11:01 AM CDT): Bp is stable/in acceptable range for any co-morbidities. Encouraged to limit sodium intake and exercise for weight control. Assessment & Plan (09/06/2019 1:18 PM DERMATOLOGIST MANAGING PARTNER): Blood pressure is very well controlled. Continue same therapy. Continue diet and exercise. Assessment & Plan (09/01/2019 7:00 PM DERMATOLOGIST MANAGING PARTNER): Bp is stable/in acceptable range for any co-morbidities. Encouraged to limit sodium intake and exercise for weight control. Assessment & Plan (03/21/2019 10:52 AM CDT): Bp is stable/in acceptable range for any co-morbidities. Encouraged to limit sodium intake and exercise for weight control. Pre-diabetes 03/15/2019 Assessment & Plan (09/16/2024 6:28 AM DERMATOLOGIST MANAGING PARTNER): Pre-diabetes/hyperglycemia is a precursor to Dm. Stressed importance of working on diet (decrease your simple sugars and one carbohydrate with each meal) and increase you exercise to achieve weight loss and this will help prevent you from progressing to diabetes. Assessment & Plan (10/02/2023 10:07 AM DERMATOLOGIST MANAGING PARTNER): Pre-diabetes/hyperglycemia is a precursor to Dm. Stressed importance of working on diet (decrease your simple sugars and one carbohydrate with each meal) and increase you exercise to achieve weight loss and this will help prevent you from progressing to diabetes. Assessment & Plan (06/11/2023 2:16 PM DERMATOLOGIST MANAGING PARTNER): Pre-diabetes/hyperglycemia is a precursor to Dm. Stressed importance of working on diet (decrease your simple sugars and one carbohydrate with each meal) and increase you exercise to achieve weight loss and this will help prevent you from progressing to diabetes. Assessment & Plan (01/29/2023 5:20 PM CDT): Pre-diabetes/hyperglycemia is a precursor to Dm. Stressed importance of working on diet (decrease your simple sugars and one carbohydrate with each meal) and increase you exercise to achieve weight loss and this will help prevent you from progressing to diabetes. Assessment & Plan (01/15/2023 8:21 PM CDT): Pre-diabetes/hyperglycemia is a precursor to Dm. Stressed importance of working on diet (decrease your simple sugars and one carbohydrate with each meal) and increase you exercise to achieve weight loss and this will help prevent you from progressing to diabetes. Assessment & Plan (08/28/2022 9:28 PM DERMATOLOGIST MANAGING PARTNER): Pre-diabetes/hyperglycemia is a precursor to Dm. Stressed importance of working on diet (decrease your simple sugars and one carbohydrate with each meal) and increase you exercise to achieve weight loss and this will help prevent you from progressing to diabetes. Assessment & Plan (12/19/2021 5:44 PM CDT): Pre-diabetes/hyperglycemia is a precursor to Dm. Stressed importance of working on diet (decrease your simple sugars and one carbohydrate with each meal) and increase you exercise to achieve weight loss and this will help prevent you from progressing to diabetes. Assessment & Plan (05/31/2021 11:58 AM CDT): Pre-diabetes/hyperglycemia is a precursor to Dm. Stressed importance of working on diet (decrease your simple sugars and one carbohydrate with each meal) and increase you exercise to achieve weight loss and this will help prevent you from progressing to diabetes. Assessment & Plan (11/26/2020 1:16 PM CDT): Pre-diabetes/hyperglycemia is a precursor to Dm. Stressed importance of working on diet (decrease your simple sugars and one carbohydrate with each meal) and increase you exercise to achieve weight loss and this will help prevent you from progressing to diabetes. Assessment & Plan (05/23/2020 11:01 AM CDT): Pre-diabetes is a precursor to Dm. Stressed importance of working on diet (decrease your simple sugars and one carbohydrate with each meal) and increase you exercise to achieve weight loss and this will help prevent you from progressing to diabetes. Assessment & Plan (09/01/2019 7:02 PM DERMATOLOGIST MANAGING PARTNER): Pre-diabetes is a precursor to Dm. Stressed importance of working on diet (decrease your simple sugars and one carbohydrate with each meal) and increase you exercise to achieve weight loss and this will help prevent you from progressing to diabetes. Assessment & Plan (03/21/2019 7:58 PM CDT): This is a significant, separately identifiable problem that was evaluated and managed on the same day as the wellness exam Pre-diabetes is a precursor to Dm. Stressed importance of working on diet (decrease your simple sugars and one carbohydrate with each meal) and increase you exercise to achieve weight loss and this will help prevent you from progressing to diabetes. Alcohol abuse 03/15/2019 Assessment & Plan (01/29/2023 5:22 PM CDT): Encouraged continued cessation. Assessment & Plan (01/15/2023 8:21 PM CDT): Continue to decrease alcohol use Assessment & Plan (12/14/2022 7:03 AM CDT): Longstanding history of alcohol abuse with peripheral neuropathy -Alcohol withdrawal assessment initiated per protocol Assessment & Plan (12/19/2021 5:44 PM CDT): Encouraged significant reduction alcohol use. He states he has been drinking more since he has been traveling with the son helping him out with work. Assessment & Plan (05/31/2021 11:58 AM CDT): Encourage reduction in his alcohol use. Assessment & Plan (05/23/2020 10:58 AM CDT): Encouraged cessation/reduction Assessment & Plan (09/01/2019 6:57 PM DERMATOLOGIST MANAGING PARTNER): Encouraged moderate use/stop. He is not interested in changing his habits. Assessment & Plan (03/21/2019 10:51 AM CDT): Continue to try to cut down on the alcohol. Drinking beer late at night may be the culprit of with keeping him up at night having to urinate multiple times. Encouraged him to decrease this as we can see if it improves his nocturia Seasonal allergic rhinitis due to pollen 019 Assessment & Plan (05/31/2021 11:58 AM CDT): Continue current management. Assessment & Plan (05/23/2020 10:59 AM CDT): Continue current otc regimen Assessment & Plan (09/01/2019 6:59 PM DERMATOLOGIST MANAGING PARTNER): Continue current regimen Assessment & Plan (03/21/2019 10:52 AM CDT): Continue current regimen. Colonoscopy refused 03/15/2019 Overview (03/15/2019): Last colonoscopy 2006. Refuses to update. Assessment & Plan (05/21/2022 2:25 PM CDT): Patient refuses colon cancer screening. Reviewed benefits of screening. Assessment & Plan (05/31/2021 11:59 AM CDT): Reviewed importance of screening. Pt voiced understanding. Assessment & Plan (11/26/2020 1:17 PM CDT): Reviewed importance of screening. Pt voiced understanding. Assessment & Plan (05/23/2020 11:02 AM CDT): Reviewed importance of screening. Pt voiced understanding. Last colonoscopy was 2006. Refuses to update. Assessment & Plan (09/01/2019 7:01 PM DERMATOLOGIST MANAGING PARTNER): Refuses to update. Reviewed importance of screening. Pt voiced understanding. . Assessment & Plan (03/21/2019 10:54 AM CDT): Refuses. Reviewed risk of not screening. History of coronary artery stent placement 09/26 Assessment & Plan (09/01/2019 7:02 PM DERMATOLOGIST MANAGING PARTNER): Continue per cardio Resolved Problems Problem Noted Date Diagnosed Date Resolved Date Prediabetes 04/06/2024 09/16/2024 Assessment & Plan (09/16/2024 6:31 AM DERMATOLOGIST MANAGING PARTNER): Pre-diabetes/hyperglycemia is a precursor to Dm. Stressed importance of working on diet (decrease your simple sugars and one carbohydrate with each meal) and increase you exercise to achieve weight loss and this will help prevent you from progressing to diabetes. Pneumonia due to infectious organism 10/27/2023 04/06/2024 Assessment & Plan (01/05/2024 11:31 PM CDT): Continue following with Pulmonary Dr. Powell at [place]. Continue with the breasts tree he isn't finish the Levaquin and really feels as though he is feeling better. Will defer any additional imaging to Pulmonary. Assessment & Plan (10/27/2023 10:02 PM CDT): Patient with pneumonia and COPD exacerbation. Is feeling much better. He understands he needs to complete the Augmentin and Zithromax. Continue with his incentive spirometer. He has been using the albuterol 2 to 3 times a day. Really encouraged him to start breasts tree. Prescription sent to pharmacy. And hopefully the use of the albuterol will decrease to just p.r.n.. Strongly stressed importance of complete smoking cessation. Recommend checking chest x-ray in about 2 weeks for confirmation of resolution. If his symptoms worsen he is to follow up sooner COPD exacerbation 10/27/2023 04/06/2024 Assessment & Plan (01/05/2024 11:32 PM CDT): Continue following with Pulmonary Dr. Powell at [place]. Continue with the breasts tree he isn't finish the Levaquin and really feels as though he is feeling better. Will defer any additional imaging to Pulmonary. Assessment & Plan (10/27/2023 10:03 PM CDT): Patient with pneumonia and COPD exacerbation. Is feeling much better. He understands he needs to complete the Augmentin and Zithromax. Continue with his incentive spirometer. He has been using the albuterol 2 to 3 times a day. Really encouraged him to start breasts tree. Prescription sent to pharmacy. And hopefully the use of the albuterol will decrease to just p.r.n.. Strongly stressed importance of complete smoking cessation. Recommend checking chest x-ray in about 2 weeks for confirmation of resolution. If his symptoms worsen he is to follow up sooner Positive depression screening 10/02/2023 10/02/2023 Impacted cerumen of right ear 06/11/2023 04/06/2024 Assessment & Plan (06/11/2023 2:19 PM DERMATOLOGIST MANAGING PARTNER): This is a significant, separately identifiable problem that was evaluated and managed on the same day as the wellness exam Patient's right ear had cerumen impaction. The ear was rinsed with warm water until the canal was clear. Hearing immediately improved. Continue to monitor and if symptoms would is turn he is to follow up immediately for evaluation. Reviewed that using Debrox when this initially happens may help with removal in the office. BMI 22.0-22.9, adult 05/30/2023 024 Assessment & Plan (05/30/2023 9:56 AM CDT): Weight/BMI is in healthy range. Continue healthy lifestyle to maintain. Cigarette smoker 02/27/2023 02/27/2023 BMI 21.0-21.9, adult 02/27/2023 023 Assessment & Plan (02/27/2023 10:01 AM CDT): Weight/BMI is in healthy range. Continue healthy lifestyle to maintain. Cigarette smoker 02/27/2023 05/30/2023 Assessment & Plan (02/27/2023 7:44 PM CDT): Encouraged smoking cessation. Discussed 3 minutes. Reviewed options for assistance with cessation. Reviewed long chain beamer sequela associated with smoking. Pt declines assistance at this time but may contact the office at anytime for further help as they desire. Cigarette smoker 01/29/2023 02/27/2023 Assessment & Plan (01/29/2023 5:23 PM CDT): Encouraged long-term cessation. Reviewed assistance. He is continuing to work on it but at this point declines any additional help. BMI 23.0-23.9, adult 12/19/2022 024 Assessment & Plan (10/27/2023 10:00 PM CDT): Weight/BMI is in healthy range. Continue healthy lifestyle to maintain. Assessment & Plan (12/19/2022 1:23 PM CDT): Weight/BMI is in healthy range. Continue healthy lifestyle to maintain. Urinary retention 12/19/2022 04/06/2024 Abdominal pain, generalized 12/16/2022 04/06/2024 Assessment & Plan (12/16/2022 8:32 AM CDT): - Noted to have worsening abd pain 12/15 afternoon prompting labs and imaging - Lactate elevated to >2, IVF given - CT unrevealing except for markedly distended bladder - Pain resolved after urinating Urinary retention 12/15/2022 04/06/2024 Assessment & Plan (01/15/2023 8:22 PM CDT): Patient still has Pruitt in place. Needs to repeat voiding trial with Urology. [facility] is not able to take the patient so will check with [facility] be in contact with the patient. If he has any problems with the Pruitt he is to contact us immediately Assessment & Plan (12/16/2022 9:28 AM CDT): 12/15: Failed void trial, straight cath x 1. Flomax started. - Required straight cath overnight with ~850 out - Pt reports voiding several times since the straight cath and it was too difficult to pee laying down - Measuring PVRs today - CT scan with a 1 cm fluid attenuation lesion along the right aspect of the prostate may represent a distended posterior urethra, or less likely sequela of prostatitis - Urology consulted for assistance with CT findings Depression 12/14/2022 09/16/2024 Assessment & Plan (12/14/2022 7:04 AM CDT): Cymbalta 30mg daily started by his PCP on 11/28/2022 -Continue home regimen BMI 22.0-22.9, adult 12/11/2022 023 Assessment & Plan (12/11/2022 9:34 PM CDT): Weight/BMI is in healthy range. Continue healthy lifestyle to maintain. Medicare annual wellness visit, subsequent 05/21/2022 04/06/2024 Assessment & Plan (06/11/2023 2:16 PM DERMATOLOGIST MANAGING PARTNER): Encouraged healthy lifestyle, good nutrition and exercise. Encouraged Calcium and Vitamin D and weight bearing exercise for bone health. Reviewed immunizations. Reviewed age appropirate screenings. Medicare Wellness Documentation is completed within the chart Assessment & Plan (05/21/2022 2:27 PM CDT): Encouraged healthy lifestyle, good nutrition and exercise. Encouraged Calcium and Vitamin D and weight bearing exercise for bone health. Reviewed immunizations. Reviewed age appropirate screenings. Medicare Wellness Documentation is completed within the chart SOB (shortness of breath) on exertion 05/17/2022 05/21/2022 Assessment & Plan (05/17/2022 1:32 PM CDT): This is a significant, separately identifiable problem that was evaluated and managed on the same day as the wellness exam BMI 23.0-23.9, adult 05/31/2021 023 Assessment & Plan (08/28/2022 9:29 PM DERMATOLOGIST MANAGING PARTNER): Weight/BMI is in healthy range. Continue healthy lifestyle to maintain. Assessment & Plan (05/21/2022 2:26 PM CDT): Weight/BMI is in healthy range. Continue healthy lifestyle to maintain. Assessment & Plan (12/07/2021 11:38 AM CDT): Weight/BMI is in healthy range. Continue healthy lifestyle to maintain. Assessment & Plan (05/31/2021 10:44 AM CDT): Weight/BMI is in healthy range. Continue healthy lifestyle to maintain. Flu vaccine need 05/31/2021 04/06/2024 Assessment & Plan (05/21/2022 2:27 PM CDT): Flu vaccine updated in the office today Assessment & Plan (05/31/2021 11:59 AM CDT): Vaccine updated in office today Medicare annual wellness visit, subsequent 05/31/2021 12/19/2021 Assessment & Plan (05/31/2021 11:59 AM CDT): Encouraged healthy lifestyle, good nutrition and exercise. Encouraged Calcium and Vitamin D and weight bearing exercise for bone health. Reviewed immunizations. Reviewed age appropirate screenings. Medicare Wellness Documentation is completed within the chart BMI 22.0-22.9, adult 11/26/2020 021 Assessment & Plan (11/26/2020 1:18 PM CDT): Weight/BMI is in healthy range. Continue healthy lifestyle to maintain. Fatigue 11/26/2020 04/05/2025 Assessment & Plan (04/06/2024 10:52 PM CDT): Probably multifactorial. Check labs and followup to re-evaluate Assessment & Plan (10/02/2023 10:07 AM DERMATOLOGIST MANAGING PARTNER): Probably multifactorial. Check labs and followup to re-evaluate Assessment & Plan (01/29/2023 5:21 PM CDT): Probably multifactorial. Check labs and followup to re-evaluate Assessment & Plan (05/21/2022 2:25 PM CDT): Probably multifactorial. Check labs and followup to re-evaluate Assessment & Plan (05/31/2021 11:59 AM CDT): Probably multifactorial. Check labs and followup to re-evaluate Assessment & Plan (11/26/2020 1:18 PM CDT): Probably multifactorial. Check labs and followup to re-evaluate Medicare annual wellness visit, subsequent 05/21/2020 11/26/2020 Assessment & Plan (05/23/2020 11:01 AM CDT): Encouraged healthy lifestyle, good nutrition and exercise. Encouraged Calcium and Vitamin D and weight bearing exercise for bone health. Reviewed immunizations Reviewed age appropirate screenings. Flu vaccine need 05/21/2020 11/26/2020 Assessment & Plan (05/23/2020 11:02 AM CDT): Updated in office today BMI 22.0-22.9, adult 08/27/2019 020 Assessment & Plan (08/27/2019 8:56 AM DERMATOLOGIST MANAGING PARTNER): Weight/BMI is in healthy range. Continue healthy lifestyle to maintain. BMI 23.0-23.9, adult 03/21/2019 024 Assessment & Plan (10/02/2023 10:07 AM DERMATOLOGIST MANAGING PARTNER): Weight/BMI is in healthy range. Continue healthy lifestyle to maintain. Assessment & Plan (05/23/2020 11:03 AM CDT): Weight/BMI is in healthy range. Continue healthy lifestyle to maintain. Assessment & Plan (03/21/2019 7:49 AM CDT): Weight/BMI is in healthy range. Continue healthy lifestyle to maintain. Need for 23-polyvalent pneum ococcal polysaccharide vaccine 03/21/2019 08/27/2019 Other fatigue 03/21/2019 03/22/2020 Assessment & Plan (09/01/2019 7:02 PM DERMATOLOGIST MANAGING PARTNER): Probably multifactorial. Check labs and followup to re-evaluate Assessment & Plan (03/21/2019 7:58 PM CDT): Probably multifactorial. Check labs and followup to re-evaluate Medicare annual wellness visit, subsequent 03/21/2019 08/27/2019 Assessment & Plan (03/21/2019 10:58 AM CDT): Encouraged healthy lifestyle, good nutrition and exercise. Encouraged Calcium and Vitamin D and weight bearing exercise for bone health. Reviewed immunizations Reviewed age appropirate screenings. Documentation is on the chart Cigarette smoker 03/15/2019 01/16/2023 Assessment & Plan (01/15/2023 8:20 PM CDT): Encouraged smoking cessation. Discussed 3 minutes. Reviewed options for assistance with cessation. Reviewed long chain beamer sequela associated with smoking. Pt declines assistance at this time but may contact the office at anytime for further help as they desire. Assessment & Plan (08/28/2022 9:26 PM DERMATOLOGIST MANAGING PARTNER): Encouraged smoking cessation. Discussed 3 minutes. Reviewed options for assistance with cessation. Reviewed long chain beamer sequela associated with smoking. Pt declines assistance at this time but may contact the office at anytime for further help as they desire. Assessment & Plan (05/21/2022 2:24 PM CDT): Encouraged smoking cessation. Discussed 3 minutes. Reviewed options for assistance with cessation. Reviewed halfway sequela associated with smoking. Pt declines assistance at this time but may contact the office at anytime for further help as they desire. Assessment & Plan (12/19/2021 5:43 PM CDT): Encouraged smoking cessation. Discussed 3 minutes. Reviewed options for assistance with cessation. Reviewed halfway sequela associated with smoking. Pt declines assistance at this time but may contact the office at anytime for further help as they desire. Due for low-dose CT. Order placed Assessment & Plan (05/31/2021 11:54 AM CDT): Encouraged smoking cessation. Discussed 3 minutes. Reviewed options for assistance with cessation. Reviewed long chain beamer sequela associated with smoking. Pt declines assistance at this time but may contact the office at anytime for further help as they desire. Assessment & Plan (11/26/2020 1:18 PM CDT): Encouraged smoking cessation. Discussed 3 minutes. Reviewed options for assistance with cessation. Reviewed halfway sequela associated with smoking. Pt declines assistance at this time but may contact the office at anytime for further help as they desire. Assessment & Plan (05/23/2020 11:04 AM CDT): Encouraged smoking cessation. Discussed 3 minutes. Reviewed options for assistance with cessation. Reviewed long chain beamer sequela associated with smoking. Pt declines assistance at this time but may contact the office at anytime for further help as they desire. Due to repeat the LDCT in 04/2020. Assessment & Plan (09/01/2019 7:01 PM DERMATOLOGIST MANAGING PARTNER): Encouraged smoking cessation. Discussed 3 minutes. Reviewed options for assistance with cessation. Reviewed long chain beamer sequela associated with smoking. Pt declines assistance at this time but may contact the office at anytime for further help as they desire. Assessment & Plan (04/03/2019 10:30 AM CDT): Encouraged smoking cessation. Discussed approx 3 minutes. Check LDCT Discussed with patient Lung Cancer screening options with the patient. Encouraged LowDose CT Patient is between 55 - 80 yo. Is a current smoker. Has a 50+year x 1ppd Is currently without any signs or symptoms of lung cancer. Seasonal allergies 03/15/2019 Assessment & Plan (05/23/2020 11:01 AM CDT): Continue otc allergy regimen Assessment & Plan (09/01/2019 7:02 PM DERMATOLOGIST MANAGING PARTNER): Continue with current regimen Assessment & Plan (03/21/2019 10:54 AM CDT): Stable continue current regimen. 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; BMI 21.0-21.9, adult 02/06/2025 10:30 AM CDT Office Visit [facility] Cardiology [address] [place] [address] Elliot Kerr MD History of coronary artery stent placement (Primary Dx); 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; Infrarenal abdominal aortic aneurysm (AAA) without rupture; Cigarette smoker 01/13/2025 9:30 AM CDT Office Visit [facility] Medicine Surgery [id number] [place] [address] [address] [place] [address] [id number] Asuncion Martel NP Infrarenal abdominal aortic aneurysm (AAA) without rupture (Primary Dx); PVD (peripheral vascular disease); Right carotid bruit 01/13/2025 8:45 AM CDT Ancillary Procedure [facility] Lab [id number] [place] [address] [address] [place] [phone] PVD (peripheral vascular disease) 01/13/2025 8:00 AM CDT Ancillary Procedure [facility] Medicine Vascular Lab [address] [place] [address] [address] [place] [phone] Infrarenal abdominal aortic aneurysm (AAA) without rupture from Last 3 Months Immunizations Immunization Administration Dates Next Due Influenza, Quadrivalent, Hig h Dose, Preservative Free, Intrr 05/30/2023,05/17/2022,05/31/2021,05/21 Influenza, Trivalent, High D ose, Split, Preservative Free, Intramuscular 05/08/2024,05/15/2019,06/12/2018 [employer] ([employer]) SARS-CoV-2 Vaccination 10/13/2020 Pneumococcal Conjugate PCV 13 01/25/2018 Pneumococcal Conjugate Pcv20 09/02/2024 Pneumococcal Polysaccharide PPV23 03/21/2019 Tdap 09/16/2016 Surgical History Surgery Date Site/Laterality Comments CARDIAC STENT PLACEMENT 08/07/1995 - 08/06/1996 COLONOSCOPY 08/07/2006 - 08/06/2007 COARCTATION OF AORTA EXCISION Bilateral Medical History Medical History Date Comments Hypertension Arrhythmia Asthma Lung disease CAD (coronary artery disease) AAA (abdominal aortic aneurysm) Family History Medical History Relation Name Comments Lung cancer Father Alzheimer's disease Mother Coronary artery disease Mother Francine nary Artery Disease; Relation Name Status Comments Father Mother Social History Tobacco Use Types Packs/Day Years Used Date Smoking Tobacco: Some Days Cigarettes Smokeless Tobacco: Never Comments:Smoking History Pac ks/day: 1 Packs Pt states he has a cigarette every now and then. 01/16/2023. Alcohol Use Standard Drinks/Week Comments Yes 20 (1 standard drink = 0.6 oz pu re alcohol) PHQ-2 Answer Date Recorded PHQ-2 Total Score (If total score is 3 or more points, staff should administer the PHQ-9) 2 03/26/2025 AUDIT-C Answer Date Recorded Q1: How often do you have a drink containing alcohol? 4 or more times a week 03/26/2025 Q2: How many drinks containi ng alcohol do you have on a typical day when you are drinking? 5 or 6 Q3: How often do you have si x or more drinks on one occasion? Monthly 03/26/2025 Personal Safety Answer Date Recorded Have you ever been in or are you currently in a harmful physical or emotional relationship or is someone making you feel afraid or unsafe? 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14 03/26/2025 10:20 AM CDT Plan of Treatment Health Maintenance Due Date Last Done Comments Hepatitis B Screening 1962 Zoster Vaccine (1 of 2) 1994 Lung Cancer Screening 08/15/2023 08/13/2022 , 02/05/2022, 11/13/2020 Covid-19 Vaccine (2 - 2023-09 5 season) 2024 10/13/2020 Influenza Vaccine (#1) 2025 , 05/30/2023, 05/17/2022, Additional history exists Well Visit 65+ 09/02/2025 09/02/2024, 05/08, 05/17/2022, Additional history exists Depression Screening 03/26/2026 03/26/2025, 09/02/2024, 04/01/2024, Additional history exists Fall Risk Assessment 03/26/2026 03/26/2025, 09/02/2024, 10/02/2023, Additional history exists DTaP/Tdap/Td Vaccine (2 - Td or Tdap) 09/16/2026 09/16/2016 Pneumococcal vaccine 65+ Completed 025, 03/21/2019, 01/25/2018, Additional history exists Abdominal Aortic Aneurysm (A AA) Screen Completed 02/06/2025, 01/13/2025, 01/13/2025, Additional history exists Medical Devices Implanted Type Area Olive Picker Device Identifier Shelf Expiration Date Model / Serial / Lot Stent Implanted:Qty: 4 Stent Heart [employer] Visi-Pro 10mm 27mm 80cm Radiopaque Balloon Expand Radial Strength - [id number] Implanted:Qty: 1 on 12/14/2022 by Ilan Merlos MD at [facility] Stent Left: Iliac [employer] [id number] 12/12/2024 [id number] / / [id number] Med[employer] Inc Visi-Pro 10mm 27mm 80cm Radiopaque Balloon Expand Radial Strength - [id number] Implanted:Qty: 1 on 12/14/2022 by Ilan Merlos MD at [facility] Stent Right: Iliac [employer] Inc [id number] 08/23/2025 [id number] / / [id number] [employer] [place] Excluder 12mm 10cm Contralateral Leg Graft Endovascular [id number] - [id number] - [id number] Implanted:Qty: 1 on 12/14/2022 by Ilan Merlos MD at [facility] Stent Left: Iliac [employer] [id number] 07/07/2025 [id number] / [id number] / Wl [employer] [place] Excluder 12mm 12cm Contralateral Leg Graft Endovascular [id number] - [id number] - [id number] Implanted:Qty: 1 on 12/14/2022 by Ilan Merlos MD at [facility] Stent Right: Iliac [employer] [id number] 08/30/2025 [id number] / [id number] / Wl [employer] Excluder 14.5mm 36mm 14cm 6.5cm Conformable Active Control Trunk [id number] - [id number] - [id number] Implanted:Qty: 1 on 12/14/2022 by Ilan Merlos MD at [facility] Stent N/A: Aorta [employer] [id number] 07/02/2025 [id number] / [id number] / Gil Vascular Device Clsr Perclose Prostyle Sut-Mediatd Closure-Repair Sys 78906-61 - [id number] Implanted:Qty: 2 on 12/14/2022 by Ilan Merlos MD at [facility] Stent Right: Groin [employer] [id number] 10/04/2024 [id number] / / [id number] Gil Vascular Device Clsr Perclose Prostyle Sut-Mediatd Closure-Repair Sys 01376-91 - [id number] Implanted:Qty: 1 on 12/14/2022 by Ilan Merlos MD at [facility] Vascular Closure Device Left: Groin [employer] [id number] 10/04/2024 [id number] / / [id number] Gil Vascular Device Clsr Perclose Prostyle Sut-Mediatd Closure-Repair Sys 57834-15 - [id number] Implanted:Qty: 1 on 12/14/2022 by Ilan Merlos MD at [facility] Vascular Closure Device Left: Groin [employer] [id number] 10/04/2024 [id number] / / [id number] [employer] Device Closure Vascade Od5 Fr Femoral Artery [id number] - [id number] Implanted:Qty: 1 on 10/13/2022 by Manuel Jade MD at [facility] [employer] 06/30/2024 [id number] / / [id number] Procedures Procedure Name Priority Date/Time Associated Diagnosis Comments US VINCENT Schedule Routine, Read Routine (OP Routine) 01/13/2025 8:39 AM CDT PVD (peripheral vascular disease) US DUPLEX SCAN OF AORTA: INFERIOR VENA CAVA, ILIAC, COMPLETE Schedule Routine, Read Routine (OP Routine) 01/13/2025 8:39 AM CDT Infrarenal abdominal aortic aneurysm (AAA) without rupture CTA ABDOMEN PELVIS W WO CONTRAST Schedule Routine, Read Routine (OP Routine) 01/23/2023 12:52 PM CDT Encounter for surgical aftercare following surgery on the circulatory system CT CHEST WO CONTRAST F/U LUNG SCREEN PROTOCOL Schedule Routine, Read Routine (OP Routine) 08/13/[address] lung screening from Last 3 Months or Most Recently Relevant to Health Maintenance Results * US VINCENT (01/13/2025 8:39 AM CDT) Anatomical Region Laterality Modality Vascular N/A Ultrasound 01/13/2025 7:44 AM CDT Narrative 01/16/2025 1:43 PM CDT [facility] - Department of Vascular Surgery, Vascular Laboratory [address] [place] [id number] Lower Extremity Arterial Doppler Report Patient Name: WADE DRAKE SR : 1945 Study Date: 01/13/2025 7:44:00 AM Gender: M Tech: Sharath Jacobs RVT Location: [facility] Provider: ILAN MERLOS Quality: Adequate Order Provider: ILAN MERLOS PROCEDURES: Arterial Report: Ankle - Brachial Index Doppler exam. INDICATIONS: I73.9 Peripheral vascular disease, unspecified. MEASUREMENTS: Right Value Units Left Value Units Rt Brachial Pressure 130 mmHg Lt Brachial Pressure 128 mmHg Rt ENGINEER CHIEF Pressure 139 mmHg Lt ENGINEER CHIEF Pressure 139 mmHg Rt DPA Pressure 135 mmHg Lt DPA Pressure 142 mmHg Rt 1st Digit Pressure 55 mmHg Lt 1st Digit Pressure 89 mmHg Rt PT VINCENT Resting 1.07 Lt PT VINCENT Resting 1.07 Rt AT VINCENT Resting 1.04 Lt AT VINCENT Resting 1.09 Rt Digit/Arm Index 0.42 Lt Digit/Arm Index 0.68 Right Value Units Left Value Units FINDINGS: Performing Preschool Teacher Assistant: Sharath Jacobs RVT. Right Posterior Tibial Artery Analysis: The posterior tibial waveform is multiphasic. Right Anterior Tibial Artery Analysis: The anterior tibial waveform is multiphasic. Right Digits: The right digit waveform is dampened. Left Posterior Tibial Artery Analysis: The posterior tibial waveform is multiphasic. Left Anterior Tibial Artery Analysis: The anterior tibial waveform is multiphasic. Left Digits: Normal left digit pressure and waveform. CONCLUSIONS: 1. The above listed Ankle/Brachial Indices at rest are within normal limits bilaterally (for reference, normal resting VINCENT is 0.9 to 1.4; VINCENT >1.4 due to non- compressible arteries is not diagnostic). 2. Right Digit/Arm Index is abnormal (for reference, abnormal KARON is <0.6). 3. Left Digit/Arm Index is within normal limits (for reference, normal KARON is >0.6). HISTORY: 12/14/22 EVAR; Kissing stent iliac bifurcation CAD, HLD, HTN, AAA, PVD, COPD, Claudication, smoker. - PREVIOUS STUDIES: Previous study on 12-25-23 Rt. 1.01, Lt. 1.08. DISCLAIMER: The study images and the final report will be retained in the patient chart by the Vascular Laboratory for the legally required time period. This chart constitutes the legal record of any testing performed. ATTESTATION: I have reviewed and interpreted the pertinent images and measurements of this study. I attest to the conclusions in the final report that is provided above. Electronically Signed By: Ilan CERVANTES OR 01/16/2025 1:34:52 PM CDT Procedure Note Ilan Merlos MD - 01/16/2025 [employer] [facility] [employer] [facility] - Department of Vascular Surgery,Vascular Laboratory [address] [place] [id number] Lower Extremity Arterial Doppler Report Patient Name: WADE DRAKE SR : 1945 Study Date: 01/13/2025 7:44:00 AM Gender: M Tech: Sharath Jacobs RVT Location: [facility] Provider: ILAN MERLOS Quality: Adequate Order Provider: ILAN MERLOS PROCEDURES: Arterial Report: Ankle - Brachial Index Doppler exam. INDICATIONS: I73.9 Peripheral vascular disease, unspecified. MEASUREMENTS: Right Value Units Left Value Units Rt Brachial Pressure 130 mmHg Lt Brachial Pressure 128 mmHg Rt ENGINEER CHIEF Pressure 139 mmHg Lt ENGINEER CHIEF Pressure 139 mmHg Rt DPA Pressure 135 mmHg Lt DPA Pressure 142 mmHg Rt 1st Digit Pressure 55 mmHg Lt 1st Digit Pressure 89 mmHg Rt PT VINCENT Resting 1.07 Lt PT VINCENT Resting 1.07 Rt AT VINCENT Resting 1.04 Lt AT VINCENT Resting 1.09 Rt Digit/Arm Index 0.42 Lt Digit/Arm Index 0.68 Right Value Units Left Value Units FINDINGS: Performing Preschool Teacher Assistant: Sharath Jacobs RVT. Right Posterior Tibial Artery Analysis: The posterior tibial waveform is multiphasic. Right Anterior Tibial Artery Analysis: The anterior tibial waveform is multiphasic. Right Digits: The right digit waveform is dampened. Left Posterior Tibial Artery Analysis: The posterior tibial waveform is multiphasic. Left Anterior Tibial Artery Analysis: The anterior tibial waveform is multiphasic. Left Digits: Normal left digit pressure and waveform. CONCLUSIONS: 1. The above listed Ankle/Brachial Indices at rest are within normallimits bilaterally (for reference, normal resting VINCENT is 0.9 to 1.4; VINCENT >1.4 due tonon- compressible arteries is not diagnostic). 2. Right Digit/Arm Index is abnormal (for reference, abnormal KARON is<0.6). 3. Left Digit/Arm Index is within normal limits (for reference, normal DAIis >0.6). HISTORY: 5/10/23 EVAR; Kissing stent iliac bifurcation CAD, HLD, HTN, AAA, PVD, COPD, Claudication, smoker. - PREVIOUS STUDIES: Previous study on 12-25-23 Rt. 1.01, Lt. 1.08. DISCLAIMER: The study images and the final report will be retained in the patientchart by the Vascular Laboratory for the legally required time period. This chartconstitutes the legal record of any testing performed. ATTESTATION: I have reviewed and interpreted the pertinent images and measurements ofthis study. I attest to the conclusions in the final report that is provided above. Electronically Signed By: Ilan CERVANTES OR 01/16/2025 1:34:52 PM CDT us Ilan Merlos MD IMG US PROCEDURES Final Resu lt * US Duplex Scan of Aorta; Inferior Vena Cava, Iliac, Complete (01/13/2025 8:39 AM CDT) Anatomical Region Laterality Modality Vascular Ultrasound 01/13/2025 7:48 AM CDT Narrative 01/16/2025 1:43 PM CDT [facility] - Department of Vascular Surgery, Vascular Laboratory [address] [place] [address] Abdominal Aortic Duplex Ultrasound Report Patient Name: WADE DRAKE SR : 1945 Study Date: 01/13/2025 7:48:04 AM Gender: M Tech: TT Location: [facility] Ref Provider: ILAN MERLOS Quality: Adequate Order Provider: ILAN MERLOS PROCEDURES: Arterial Report: Abdominal Aorta Stent Graft Duplex. INDICATIONS: I71.43 Infrarenal abdominal aortic aneurysm, without rupture. MEASUREMENTS: Aorta Value Units Arteries Value Units Prox (Celiac Level) A/P 1.81 cm RT EIA Diameter Prox 0.47 cm Prox (Celiac Level) Trans 1.81 cm RT EIA Diameter Mid 0.46 cm Prox PSV 55.00 cm/sec RT EIA Diameter Dist 0.51 cm Mid (Infrarenal) A/P 2.58 cm RT EIA PSV Prox 148.00 cm/s Mid (Infrarenal) Trans 2.86 cm RT EIA PSV Mid 158.00 cm/s Mid PSV 54.00 cm/sec RT EIA PSV Dist 168.00 cm/s Kiana Aorta Residual Sac Diameter (Post EVAR) 4.29 cm RT FRANK STENT prox 70.00 cm/s Aorta Stent Graft Body Prox 38.00 cm/s RT FRANK STENT mid 57.00 cm/s Aorta Stent Graft Body Mid 40.00 cm/s RT FRANK STENT dist 91.00 cm/s Aorta Stent Graft Body Dist 62.00 cm/s LT EIA Diameter Prox 0.51 cm RT Iliac Limb Prox 56.00 cm/s LT EIA Diameter Mid 0.46 cm RT Iliac Limb Mid 58.00 cm/s LT EIA Diameter Dist 0.47 cm RT Iliac Limb Dist 44.00 cm/s LT EIA PSV Prox 123.00 cm/s LT Iliac Limb Prox 42.00 cm/s LT EIA PSV Mid 129.00 cm/s LT Iliac Limb Mid 43.00 cm/s LT EIA PSV Dist 97.00 cm/s LT Iliac Limb Dist 65.00 cm/s LT FRANK STENT prox 53.00 cm/s LT FRANK STENT mid 48.00 cm/s LT FRANK STENT dist 85.00 cm/s Right MICROBIOLOGY ANALYST 129.00 cm/s Aorta Value Units Arteries Value Units FINDINGS: Performing Preschool Teacher Assistant: Sharath Jacobs RVT. Study Quality: Adequate. Abdominal Aorta: Patent bilateral Common Iliac stents noted with above velocities. Bilateral External Iliac Artery and common femoral artery waveforms are multiphasic. Abdominal aorta stent graft body and bilateral limbs are patent. Largest size of the residual excluded comanche aorta sac is 4.29cm. Largest diameter of the right iliac artery is .77cm. Largest diameter of the left iliac artery is .75cm. There is no evidence of endoleak. Bilateral External Iliac Artery waveforms are multiphasic. CONCLUSIONS: 1. Largest size of the residual excluded comanche aorta sac is 4.29cm. There is no evidence of endoleak. 2. The bilateral common iliac artery kissing stents are patent. HISTORY: 12/14/22 EVAR; Kissing stent iliac bifurcation CAD, HLD, HTN, AAA, PVD, COPD, Claudication, smoker. - PREVIOUS STUDIES: Previous study on 12-25-23. DISCLAIMER: The study images and the final report will be retained in the patient chart by the Vascular Laboratory for the legally required time period. This chart constitutes the legal record of any testing performed. ATTESTATION: I have reviewed and interpreted the pertinent images and measurements of this study. I attest to the conclusions in the final report that is provided above. Electronically Signed By: Ilan CERVANTES OR 01/16/2025 1:34:35 PM CDT Procedure Note Ilan Merlos MD - 01/16/2025 [facility] - Department of Vascular Surgery,Vascular Laboratory [address] [place] [id number] Abdominal Aortic Duplex Ultrasound Report Patient Name: WADE DRAKE SR : 1945 Study Date: 01/13/2025 7:48:04 AM Gender: M Tech: TT Location: [facility] Ref Provider: ILAN MERLOS Quality: Adequate Order Provider: ILAN MERLOS PROCEDURES: Arterial Report: Abdominal Aorta Stent Graft Duplex. INDICATIONS: I71.43 Infrarenal abdominal aortic aneurysm, without rupture. MEASUREMENTS: Aorta Value Units Arteries Value Units Prox (Celiac Level) A/P 1.81 cm RT EIA Diameter Prox 0.47 cm Prox (Celiac Level) Trans 1.81 cm RT EIA Diameter Mid 0.46 cm Prox PSV 55.00 cm/sec RT EIA Diameter Dist 0.51 cm Mid (Infrarenal) A/P 2.58 cm RT EIA PSV Prox 148.00 cm/s Mid (Infrarenal) Trans 2.86 cm RT EIA PSV Mid 158.00 cm/s Mid PSV 54.00 cm/sec RT EIA PSV Dist 168.00 cm/s Kiana Aorta Residual Sac Diameter (Post EVAR) 4.29 cm RT FARNK STENT prox70.00 cm/s Aorta Stent Graft Body Prox 38.00 cm/s RT FRANK STENT mid 57.00 cm/s Aorta Stent Graft Body Mid 40.00 cm/s RT FRANK STENT dist 91.00 cm/s Aorta Stent Graft Body Dist 62.00 cm/s LT EIA Diameter Prox 0.51 cm RT Iliac Limb Prox 56.00 cm/s LT EIA Diameter Mid 0.46 cm RT Iliac Limb Mid 58.00 cm/s LT EIA Diameter Dist 0.47 cm RT Iliac Limb Dist 44.00 cm/s LT EIA PSV Prox 123.00 cm/s LT Iliac Limb Prox 42.00 cm/s LT EIA PSV Mid 129.00 cm/s LT Iliac Limb Mid 43.00 cm/s LT EIA PSV Dist 97.00 cm/s LT Iliac Limb Dist 65.00 cm/s LT FRANK STENT prox 53.00 cm/s LT FRANK STENT mid 48.00 cm/s LT FRANK STENT dist 85.00 cm/s Right MICROBIOLOGY ANALYST 129.00 cm/s Aorta Value Units Arteries Value Units FINDINGS: Performing Preschool Teacher Assistant: Sharath Jacobs RVT. Study Quality: Adequate. Abdominal Aorta: Patent bilateral Common Iliac stents noted with above velocities. Bilateral External Iliac Artery and common femoral artery waveforms aremultiphasic. Abdominal aorta stent graft body and bilateral limbs are patent. Largest size of the residual excluded comanche aorta sac is 4.29cm. Largest diameter of the right iliac artery is .77cm. Largest diameter of the left iliac artery is .75cm. There is no evidence of endoleak. Bilateral External Iliac Artery waveforms are multiphasic. CONCLUSIONS: 1. Largest size of the residual excluded comanche aorta sac is 4.29cm. There is no evidence of endoleak. 2. The bilateral common iliac artery kissing stents are patent. HISTORY: 12/14/22 EVAR; Kissing stent iliac bifurcation CAD, HLD, HTN, AAA, PVD, COPD, Claudication, smoker. - PREVIOUS STUDIES: Previous study on 12-25-23. DISCLAIMER: The study images and the final report will be retained in the patientchart by the Vascular Laboratory for the legally required time period. This chartconstitutes the legal record of any testing performed. ATTESTATION: I have reviewed and interpreted the pertinent images and measurements ofthis study. I attest to the conclusions in the final report that is provided above. Electronically Signed By: Ilan CERVANTES OR 01/16/2025 1:34:35 PM CDT us Ilan Merlos MD IMG US PROCEDURES Final Resu lt * CTA Abdomen Pelvis (01/23/2023 12:52 PM CDT) Anatomical Region Laterality Modality Body N/A Computed Tomogra phy 01/23/2023 2:02 PM CDT Impressions 01/23/2023 5:15 PM CDT Endovascular abdominal aortic repair with patent stent graft. No evidence of endoleak. The comanche aortic aneurysm sac of 4.5 x 4.0 cm slightly decreased from 4.5 x 4.2 cm. Marked urinary bladder distention and mural thickening with prostatomegaly. Query chronic outlet obstruction. Electronically signed by: Sarah Carmona M.D. Narrative 01/23/2023 5:15 PM CDT Examination: CTA ABDOMEN PELVIS Date: 01/23/2023 12:00 PM Clinical History: AAA, post repair post op Technique: CT abdomen pelvis with angiogram protocol including unenhanced, arterial phase and delayed images were obtained after the uneventful intravenous administration of 125 mL of Optiray 350. 2-D and 3-D reconstructions were obtained. Comparison:CT abdomen pelvis 12/15/2022. Findings: Vascular findings: Endovascular abdominal aortic aneurysm repair with patent aortobiiliac stent graft is again seen. No interval kinking or migration is seen.. The proximal landing zone is at the level of the left renal artery origin which is unchanged. The comanche aneurysm sac measuring 4.5 x 4.0 cm is slightly decreased from 4.5 x 4.2 cm previously. Marked rim calcification again noted with focal calcified infrarenal plaque the right. There is no evidence for endoleak. Interval resolution of previous gas within the excluded sac is noted. Calcified plaque with mild celiac and SMA ostial and proximal stenosis is seen. Bilateral renal arteries also patent. Nonvascular findings: The visualized lung bases are clear. There is no pleural effusion. The liver, spleen, pancreas and adrenals are unremarkable. The gallbladder is not remarkable. There is no biliary distention. No hydronephrosis or nephrolithiasis is seen.Renal cysts are present largest 1.7 cm on the right with a few subcentimeter hypoattenuating lesions on both sides which are too small to characterize though probably also cysts. Nondistended stomach noted. Mild to moderate colonic debris is seen. The appendix is unremarkable except for trapped barium or appendicolith extending to the tip.. There is no evidence of intestinal obstruction. There is no free intraperitoneal air or fluid. Marked urinary bladder distention and mild mural thickening now seen. The prostate is enlarged measuring 4.6 cm diameter with coarse calcifications. . There is no suspicious mesenteric or retroperitoneal lymphadenopathy. The osseous structures are intact. Procedure Note Sarah Carmona MD - 01/23/2023 Examination: CTA ABDOMEN PELVIS Date: 01/23/2023 12:00 PM Clinical History: AAA, post repair post op Technique: CT abdomen pelvis with angiogram protocol including unenhanced, arterial phase and delayed images were obtained after the uneventful intravenous administration of 125 mL of Optiray 350. 2-D and 3-D reconstructions were obtained. Comparison:CT abdomen pelvis 12/15/2022. Findings: Vascular findings: Endovascular abdominal aortic aneurysm repair with patent aortobiiliac stent graft is again seen. No interval kinking or migration is seen.. The proximal landing zone is at the level of the left renal artery origin which is unchanged. The comanche aneurysm sac measuring 4.5 x 4.0 cm is slightly decreased from 4.5 x 4.2 cm previously. Marked rim calcification again noted with focal calcified infrarenal plaque the right. There is no evidence for endoleak. Interval resolution of previous gas within the excluded sac is noted. Calcified plaque with mild celiac and SMA ostial and proximal stenosis is seen. Bilateral renal arteries also patent. Nonvascular findings: The visualized lung bases are clear. There is no pleural effusion. The liver, spleen, pancreas and adrenals are unremarkable. The gallbladder is not remarkable. There is no biliary distention. No hydronephrosis or nephrolithiasis is seen.Renal cysts are present largest 1.7 cm on the right with a few subcentimeter hypoattenuating lesions on both sides which are too small to characterize though probably also cysts. Nondistended stomach noted. Mild to moderate colonic debris is seen. The appendix is unremarkable except for trapped barium or appendicolith extending to the tip.. There is no evidence of intestinal obstruction. There is no free intraperitoneal air or fluid. Marked urinary bladder distention and mild mural thickening now seen. The prostate is enlarged measuring 4.6 cm diameter with coarse calcifications. . There is no suspicious mesenteric or retroperitoneal lymphadenopathy. The osseous structures are intact. IMPRESSION: Endovascular abdominal aortic repair with patent stent graft. No evidence of endoleak. The comanche aortic aneurysm sac of 4.5 x 4.0 cm slightly decreased from 4.5 x 4.2 cm. Marked urinary bladder distention and mural thickening with prostatomegaly. Query chronic outlet obstruction. Electronically signed by: Sarah Carmona M.D. Ilan Merlos MD IMG CT PROCEDURES Final Resu lt * CT Chest WO Contrast F/U Lung Screen Protocol (08/13/2022) Anatomical Region Laterality Modality Chest N/A Computed Tomogra phy Smita EATON IMG CT PROCEDURES Final Re sult from Last 3 Months or Most Recently Relevant to Health Maintenance Insurance MEDICARE TNA MEDICARE AETNA MEDICARE AET SENIOR SUPPLEMENT Advance Directives For more information, please contact: [phone] Documents on File Type Date Recorded Patient Machine Leather Trimmer Expl anation ADVANCE DIRECTIVE 09/02/2024 3:26 PM POLST * Full Code (Latest Code Status on File) Date Activated Date Inactivated Comments 12/14/2022 2:11 PM 12/16/2022 9:13 PM Care Teams Educational Speech Language Clinician Relationship Specialty Start Date End Date Smita Gaona PA [address] [place] [address] PCP - General Internal Medicine 11/13/18 Elliot Kerr MD [address] [place] [address] Consulting Physician Cardiology 03/21/19 Manuel Jade MD [address] [place] [address] Consulting Physician Cardiology 11/08/22 [place] [address] [place] [address] Consulting Physician Vascular Surgery 12/16/22
[2025-04-06 08:52] LABS: Alanine Aminotransferase 16 U/L (6-50); Albumin Level 4.1 g/dL (3.5-5.1); Alkaline Phosphatase 71 U/L (38-126); Anion Gap 8 mmol/L (4-12); Aspartate Amino Transferase 30 U/L (17-59); Bilirubin,Total 0.5 mg/dL (0.2-1.3); Blood Urea Nitrogen 17 mg/dL (9-20); Calcium 9.3 mg/dL (8.4-10.2); Carbon Dioxide 24 mmol/L (22-30); Chloride 100 mmol/L (98-107); Estimated CRCL calculation 45 ml/min; Estimated Glomerular Filt Rate > 60; Glucose 127 mg/dL (65-110); Potassium 3.6 mmol/L (3.4-5.0); Sodium 132 mmol/L (137-145); Total Protein 7.8 g/dL (6.3-8.2)
[2025-04-06 10:09] VITALS: BP 119/48
--- NOTE | 2025-04-06 10:49 | PC.NURSE ---
patient reports that he is feeling much better after the enema and that he would like to go home. EDP aware of patient request.
[2025-04-06 11:00] VITALS: BP 136/88; PULSE 71; RESP 16; O2SAT 98
== END 2025-04-06 11:02 | disposition home or self-care (01) ==
PROVIDERS: Emergency Provider Emergency Medicine; PCP Physician Assistant
DX: K64.9 Unspecified hemorrhoids (principal); K59.00 Constipation, unspecified; I73.9 Peripheral vascular disease, unspecified; I10 Essential (primary) hypertension; I25.10 Atherosclerotic heart disease of native coronary artery without angina pectoris; I25.2 Old myocardial infarction; I71.43 Infrarenal abdominal aortic aneurysm, without rupture; J43.9 Emphysema, unspecified; E78.00 Pure hypercholesterolemia, unspecified; H26.9 Unspecified cataract; F32.A Depression, unspecified; F17.210 Nicotine dependence, cigarettes, uncomplicated; Z95.810 Presence of automatic (implantable) cardiac defibrillator; Z95.5 Presence of coronary angioplasty implant and graft; Z95.828 Presence of other vascular implants and grafts; Z87.440 Personal history of urinary (tract) infections; N40.0 Benign prostatic hyperplasia without lower urinary tract symptoms; N32.89 Other specified disorders of bladder; N20.0 Calculus of kidney; Z79.82 Long term (current) use of aspirin; Z79.899 Other long term (current) drug therapy
CPT/HCPCS: 36415; 74177; 80053; 85025; 85610; 85730; 86850; 86900; 86901; 99284; Q9967

== ENCOUNTER 2025-05-05 12:58 | Outpatient (CLI) | payer MEDICARE, SELFPAY ==
--- NOTE | ~2025-05-05 | CT_ITS ---
EXAMINATION:CT diagnostic chest wo con DATE: 05/05/2025 13:14 INDICATION: Solitary pulmonary nodule. TECHNIQUE: Computed tomography (CT) of the chest was performed without intravenous contrast. Automated exposure control and iterative reconstruction technique were employed. The dose-length product (DLP) was 77.91 mGy-cm. COMPARISON: Chest CT 09/08/2024, 02/28/2024, 02/05/2022 FINDINGS: There is stable scarring at the lung apices. There is mild emphysema. There is mild atelectasis bilaterally. There are a few scattered nodules in the lungs measuring up to 5 mm in left upper lobe. No pleural effusion. The heart size is normal. There are coronary artery calcifications. No pericardial effusion. There is mild bilateral gynecomastia. There is a stent graft in abdominal aorta. There is mild thoracic spondylosis. IMPRESSION: 1. Small pulmonary nodules, stable from 02/05/2022, likely benign. 2. Mild emphysema. Reviewed, dictated and finalized at location E.
== END 2025-05-05 12:59 | disposition home or self-care (01) ==
LOC: MICIMG 12:59
PROVIDERS: PCP Physician Assistant; Visit Provider Physician Assistant
DX: R91.1 Solitary pulmonary nodule (principal); R91.8 Other nonspecific abnormal finding of lung field; J43.9 Emphysema, unspecified
CPT/HCPCS: 71250

== ENCOUNTER 2025-07-19 17:21 | Emergency (ER) | payer MEDICARE, SELFPAY ==
[2025-07-19] VITALS (8 sets, daily range): BP systolic 144–152; BP diastolic 67–73; PULSE 69–83; RESP 16–26; TEMP 36.4; O2SAT 99–100
--- NOTE | ~2025-07-19 | CT_ITS ---
EXAMINATION: CT brain wo mily, 07/19/2025 17:40 AUTOMOTIVE STARTER REPAIRER HISTORY: cva COMPARISON: No comparisons available. Technique: Axial images obtained of the brain without contrast. One or more of the following dose reduction techniques were used: automated exposure control, adjustment of the mA and/or kV according to patient size, use of iterative reconstruction technique. Findings: Remote left frontal infarct. Remote right frontal subcortical infarct. Remote right posterior parietal infarct. No acute infarct or hemorrhage. No midline shift or mass effect. No extra-axial fluid collections. Mastoid air cells unremarkable. Sinuses and orbits unremarkable. No acute fracture. No significant facial or scalp soft tissue swelling evident. No radiopaque foreign body is seen. Impression: 1.No acute intracranial abnormality. Reviewed, dictated and finalized at location P. MOTIVE STARTER REPAIRER Impression: 1.No acute intracranial abnormality.
--- NOTE | ~2025-07-19 | CT_ITS ---
EXAMINATION: CTA brain carotid, 07/19/2025 18:25 DIRECTORY CLERK HISTORY: cva, EMERGENT EXAM BY DR. WATKINS. NO GFR OBTAINED COMPARISON: No comparisons available. TECHNIQUE: CTA scan with 3D Reconstructions of the brain and neck was performed with contrast Isovue 300, 92cc injected IV. One or more of the following dose reduction techniques were used: automated exposure control, adjustment of the mA and/or kV according to patient size, use of iterative reconstruction technique. Unless otherwise stated, incidental findings do not require dedicated follow up imaging FINDINGS: CTA brain: Visualized brain parenchyma is unremarkable. The optic globes appear unremarkable. The soft tissues appear unremarkable. The mastoid air cells and sinuses appear unremarkable. The basilar artery is unremarkable. The right posterior cerebral artery is unremarkable. The left posterior cerebral artery is fed predominantly by the [facility] and appears grossly unremarkable. The right petrous and cavernous ICA segments unremarkable. The right M1, M2 segments and their branches are unremarkable. The right A1 and A2 segments unremarkable. The left petrous and cavernous ICA segments unremarkable. The left M1, M2 segments are unremarkable. The left A1 and A2 segments unremarkable. CTA NECK: The soft tissues are unremarkable. Parotid and submandibular glands unremarkable. No gross asymmetry of the airway. No thickening of the prevertebral space. There are no gross thyroid nodules. No lymphadenopathy in the anterior superior mediastinum. Enlarged right hilar lymph node measures 1.5 x 1.5 cm. The lung apices demonstrate chronic changes. The osseous structures demonstrate scattered sclerotic foci seen suspicious for metastatic disease with ill-defined sclerosis involving the right external. The cervical segments of the vertebral arteries appear unremarkable. Right CCA unremarkable. Proximal right ICA unremarkable. There is tortuosity noted of the right ICA. Left CCA unremarkable. Proximal left ICA unremarkable. Tortuosity noted of the left ICA. IMPRESSION: 1. No critical stenosis, occlusion or aneurysm is identified. 3. Enlarged right hilar lymph node. Outpatient chest CT recommended Reviewed, dictated and finalized at location P. CTORY CLERK
--- OUTSIDE RECORDS SUMMARY | 2025-07-19 17:25 | XMS_ITS | Clinical Summary ---
Author Organization [facility] [place] [address] Address [address] [place] [address] Care Team Providers Care Basic Combatant Swimmer Name Role Phone Smita Gaona Primary Care Provider [phone] Elliot Kerr MD Unavailable [phone] Manuel Jade MD Unavailable Ilan Gutierrez MD Unavailable [phone] Allergies Active Allergy Reactions Criticality Noted Date [...] 1 tablet (10 mg total) by mouth litigator before breakfast Active folic acid (FOLVITE) 800 mcg tabletIndications :Folate Deficiency Take 1 tablet (800 mcg total) by mouth litigator before breakfast Active cyanocobalamin (Vitamin B-12) 1,000 mcg tabletIndications :Prevention of Vitamin B12 Deficiency Take 1 tablet (1,000 mcg total) by mouth litigator before breakfast Active tamsulosin (FLOMAX) 0.4 mg [...] for wheezing 3 each 1 024 Active fluticasone-umecl idin-vilanter (Trelegy Ellipta) 200-62.5-25 mcg inhaler Inhale 1 puff daily 3 each [address] (CYMBALTA) 60 mg capsule Take 1 capsule (60 mg total) by mouth 2 (two) times a day 180 capsule 1 025 Active nitroglycerin (Nitrostat) 0.4 mg SL tabletIndications :Coronary artery disease of [place] artery of [place] heart with stable angina pectoris Place 1 tablet (0.4 mg total) under the tongue every 5 (five) minutes as needed for chest pain 50 tablet 1 025 Active bethanechol (URECHOLINE) 25 mg tablet Take 1 tablet (25 mg total) by mouth daily 90 tablet 1 025 Active metoprolol tartrate (LOPRESSOR) 50 mg immediate release tabletIndications :Essential hypertension Take 1 tablet by mouth twice daily 200 tablet 1 025 Active rosuvastatin (CRESTOR) 40 mg tabletIndications :Mixed hyperlipidemia Take 1 tablet by mouth once daily 90 tablet 025 Active rosuvastatin (CRESTOR) 40 mg tabletIndications :Mixed hyperlipidemia Take 1 tablet by mouth once daily 90 tablet 025 2024 Discontinued metoprolol tartrate (LOPRESSOR) 50 mg immediate release tabletIndications :Essential hypertension Take 1 tablet by mouth twice daily 180 tablet 025 2024 Discontinued Active Problems Problem Noted Date Diagnosed Date Generalized weakness 04/05/2025 Poor nutrition 04/05/2025 Medicare annual wellness visit, subsequent 09/16 Assessment & Plan (09/16/2024 6:33 AM COUPON COLLECTION CLERK): Encouraged healthy lifestyle, good nutrition and exercise. Encouraged Calcium and Vitamin D and weight bearing exercise for bone health. Reviewed immunizations. Reviewed age appropirate screenings. Medicare Wellness Documentation is completed within the chart Forms completed [facility]. Benign prostatic hyperplasia without lower urinary tract symptoms 09/16/2024 Assessment & Plan (09/16/2024 6:28 AM COUPON COLLECTION CLERK): Continue finasteride and tamsulosin Slow transit constipation 04/06/2024 Assessment & Plan (09/16/2024 6:31 AM COUPON COLLECTION CLERK): Patient continues with the Colace to help with constipation. Increase exercise and fluids Assessment & Plan (04/06/2024 10:50 PM CDT): Constipation is better with the Colace. Continue to monitor. Increase fluids and exercise Pulmonary nodule 12/14/2023 Overview (12/14/2023): 10/10/2023 CTA chest at [facility]: 7mm right upper lobe pulmonary nodule suspicious for primary bronchogenic carcinoma. Non-contrast LDCT chest is recommended in 01/2024 Assessment & Plan (12/14/2023 11:34 AM CDT): 10/10/2023 CTA chest at [facility]: 7mm right upper lobe pulmonary nodule suspicious for primary bronchogenic carcinoma. Non-contrast LDCT chest is recommended in 01/2024 Need for vaccination 06/11/2023 Assessment & Plan (09/16/2024 6:33 AM COUPON COLLECTION CLERK): Prevnar 20 updated in office today Assessment & Plan (06/11/2023 2:19 PM COUPON COLLECTION CLERK): Flu vaccine updated in the office Cigarette smoker 06/11/2023 Assessment & Plan (09/16/2024 6:31 AM COUPON COLLECTION CLERK): Encouraged smoking cessation. Discussed 3 minutes. Reviewed options for assistance with cessation. Reviewed intermediate card tender sequela associated with smoking. Pt declines assistance at this time but may contact the office at anytime for further help as they desire. Assessment & Plan (04/06/2024 10:52 PM CDT): Encouraged smoking cessation. Discussed 3 minutes. Reviewed options for assistance with cessation. Reviewed prison sequela associated with smoking. Pt declines assistance [...] Reviewed options for assistance with cessation. Reviewed prison sequela associated with smoking. Pt declines assistance at this time but may contact the office at anytime for further help as they desire. Assessment & Plan (10/02/2023 10:07 AM COUPON COLLECTION CLERK): Encouraged smoking cessation. Discussed 3 minutes. Reviewed options for assistance with cessation. Reviewed prison sequela associated with smoking. Pt declines assistance at this time but may contact the office at anytime for further help as they desire. Assessment & Plan (06/11/2023 2:19 PM COUPON COLLECTION CLERK): Encouraged smoking cessation. Discussed 3 minutes. Reviewed options for assistance with cessation. Reviewed prison sequela associated with smoking. Pt declines assistance at this time but may contact the office at anytime for further help as they desire. BMI 21.0-21.9, adult 01/16/2023 Assessment & Plan (03/26/2025 10:28 AM CDT): Weight/BMI is in healthy range. Continue healthy lifestyle to maintain. Assessment & Plan (09/02/2024 2:46 PM COUPON COLLECTION CLERK): Weight/BMI is in healthy range. Continue healthy lifestyle to maintain. Assessment & Plan (04/06/2024 10:52 PM CDT): Weight/BMI is in healthy range. Continue healthy lifestyle to maintain. Assessment & Plan (01/16/2023 9:38 AM CDT): Weight/BMI is in healthy range. Continue healthy lifestyle to maintain. PVD (peripheral vascular disease) 12/14/2022 Assessment & Plan (09/16/2024 6:30 AM COUPON COLLECTION CLERK): Status post stenting in his legs. Vascular [...] iliac stent placement Continue per vascular at [facility] Assessment & Plan (12/16/2022 8:30 AM CDT): [...] iliac stent placement Continue per vascular at [facility] Assessment & Plan (12/11/2022 9:30 PM CDT): [...] 05/21/2022 Assessment & Plan (08/28/2022 9:28 PM COUPON COLLECTION CLERK): Arterial studies did confirm claudication. started him [...] He prefers to have these done at [facility] as he would want to use the vascular group at [facility]. COPD (chronic obstructive pulmonary disease) 04/2019 Assessment & Plan (09/16/2024 6:30 AM COUPON COLLECTION CLERK): Patient has stopped as inhalers. Using ProAir [...] declines. Assessment & Plan (06/11/2023 2:18 PM COUPON COLLECTION CLERK): Strongly encouraged complete smoking cessation. He is [...] instructed. Assessment & Plan (08/28/2022 9:26 PM COUPON COLLECTION CLERK): Encouraged smoking cessation. He stop the Anoro [...] exacerbation. Assessment & Plan (09/01/2019 6:59 PM COUPON COLLECTION CLERK): Stop smoking Continue inhalers. Assessment & Plan [...] 03/15/2019 Assessment & Plan (09/01/2019 7:00 PM COUPON COLLECTION CLERK): Avoid JONATAN---still could be other products but doesn't want to see drapery inspector. Assessment & Plan (03/21/2019 7:57 PM CDT): [...] 60 Assessment & Plan (06/11/2023 2:18 PM COUPON COLLECTION CLERK): Depression is stable with the Cymbalta. Assessment [...] Wellbutrin Assessment & Plan (09/01/2019 7:02 PM COUPON COLLECTION CLERK): Stable with Wellbutrin Assessment & Plan (03/21/2019 10:54 AM CDT): Stable with the Wellbutrin. Continue to monitor. Anxiety 03/15/2019 Assessment & Plan (05/31/2021 11:54 AM CDT): Stable Wellbutrin. Assessment & Plan (05/23/2020 11:03 AM CDT): See depression Assessment & Plan (09/01/2019 7:01 PM COUPON COLLECTION CLERK): Continue Wellbutrin Assessment & Plan (03/21/2019 10:53 AM CDT): Stable with the Wellbutrin. Will monitor Coronary artery disease of n ative artery of [place] heart with stable angina pectoris 03/15/2019 Overview (11/26/2020): history of PCI to the LAD in 1994 when he was living in [place]. He presented to [facility] with ischemic symptomatology in September of 2014. He underwent follow-up angiography demonstrating his LAD to be patent but he had high-grade stenosis in the largest OM circumflex branch. This was addressed with PTCA and stenting with resolution of his ischemic symptoms. Assessment & Plan (09/16/2024 6:29 AM COUPON COLLECTION CLERK): Continue per Cardiology. Continue beta-thor statin and aspirin Assessment & Plan (04/06/2024 10:51 PM CDT): Continue per Cardiology. He is on statin aspirin and a beta-thor Assessment & Plan (06/11/2023 2:17 PM COUPON COLLECTION CLERK): Continue per Cardiology. Blood pressure stable. Continue statin and aspirin. He is also on a beta-thor Assessment & Plan (01/15/2023 8:20 PM CDT): Continue per Cardiology. Continue aspirin statin and blood pressure control Will plan to restart the beta-thor as his blood pressure is able to allow Assessment & Plan (08/28/2022 9:27 PM COUPON COLLECTION CLERK): Continue per cardio at [facility]. Patient is on beta-thor and aspirin and [...] ASA Assessment & Plan (09/06/2019 1:24 PM COUPON COLLECTION CLERK): Stable, without recent angina. He has coronary calcification, as expected. I made no change in his excellent medical regimen today, except to increase Crestor to 40 mg daily empirically. I asked him to follow up with me on an as-needed basis only. He will follow up with his usual cloth stock sorter regularly. I advised him to continue to diet and exercise regularly, and to stop smoking completely. Assessment & Plan (09/01/2019 6:59 PM COUPON COLLECTION CLERK): On ASA. Continue with Cardio Assessment & Plan (03/21/2019 10:51 AM CDT): Stable. On beta-thor. Continue per Dr. Kerr. Mixed hyperlipidemia 03/15/2019 Assessment & Plan (09/16/2024 6:29 AM COUPON COLLECTION CLERK): Encouraged patient to follow low fat/low chol [...] Crestor Assessment & Plan (10/02/2023 10:07 AM COUPON COLLECTION CLERK): Encouraged patient to follow low fat/low chol diet like the Mediterranean diet. Increase good fats in the diet. Increase exercise. Monitor labs as needed. Continue Crestor Assessment & Plan (06/11/2023 2:17 PM COUPON COLLECTION CLERK): Encouraged patient to follow low fat/low chol [...] statin Assessment & Plan (08/28/2022 9:27 PM COUPON COLLECTION CLERK): Encouraged patient to follow low fat/low chol [...] statin Assessment & Plan (09/06/2019 1:19 PM COUPON COLLECTION CLERK): Lipids are well controlled. As above, I empirically increased Crestor to 40 mg daily. Assessment & Plan (09/01/2019 7:00 PM COUPON COLLECTION CLERK): Encouraged patient to continue low fat/low chol diet. Continue exercise. Increase good fats in the diet. Monitor labs as needed. Assessment & Plan (03/21/2019 10:53 AM CDT): Encouraged patient to continue low fat/low chol diet. Continue exercise. Increase good fats in the diet. Monitor labs as needed. Essential hypertension 03/15/2019 Assessment & Plan (09/16/2024 6:28 AM COUPON COLLECTION CLERK): Bp is stable/in acceptable range for any [...] b.i.d. Assessment & Plan (10/02/2023 10:07 AM COUPON COLLECTION CLERK): Bp is stable/in acceptable range for any co-morbidities. Encouraged to limit sodium intake and exercise for weight control. Continue per Cardiology. Continues with Lopressor 50 mg half tab twice a week Assessment & Plan (06/11/2023 2:17 PM COUPON COLLECTION CLERK): Bp is stable/in acceptable range for any [...] PCP Assessment & Plan (08/28/2022 9:28 PM COUPON COLLECTION CLERK): Bp is stable/in acceptable range for any [...] control. Assessment & Plan (09/06/2019 1:18 PM COUPON COLLECTION CLERK): Blood pressure is very well controlled. Continue same therapy. Continue diet and exercise. Assessment & Plan (09/01/2019 7:00 PM COUPON COLLECTION CLERK): Bp is stable/in acceptable range for any co-morbidities. Encouraged to limit sodium intake and exercise for weight control. Assessment & Plan (03/21/2019 10:52 AM CDT): Bp is stable/in acceptable range for any co-morbidities. Encouraged to limit sodium intake and exercise for weight control. Pre-diabetes 03/15/2019 Assessment & Plan (09/16/2024 6:28 AM COUPON COLLECTION CLERK): Pre-diabetes/hyperglycemia is a precursor to Dm. Stressed importance of working on diet (decrease your simple sugars and one carbohydrate with each meal) and increase you exercise to achieve weight loss and this will help prevent you from progressing to diabetes. Assessment & Plan (10/02/2023 10:07 AM COUPON COLLECTION CLERK): Pre-diabetes/hyperglycemia is a precursor to Dm. Stressed importance of working on diet (decrease your simple sugars and one carbohydrate with each meal) and increase you exercise to achieve weight loss and this will help prevent you from progressing to diabetes. Assessment & Plan (06/11/2023 2:16 PM COUPON COLLECTION CLERK): Pre-diabetes/hyperglycemia is a precursor to Dm. Stressed [...] diabetes. Assessment & Plan (08/28/2022 9:28 PM COUPON COLLECTION CLERK): Pre-diabetes/hyperglycemia is a precursor to Dm. Stressed [...] diabetes. Assessment & Plan (09/01/2019 7:02 PM COUPON COLLECTION CLERK): Pre-diabetes is a precursor to Dm. Stressed [...] cessation/reduction Assessment & Plan (09/01/2019 6:57 PM COUPON COLLECTION CLERK): Encouraged moderate use/stop. He is not interested [...] regimen Assessment & Plan (09/01/2019 6:59 PM COUPON COLLECTION CLERK): Continue current regimen Assessment & Plan (03/21/2019 [...] update. Assessment & Plan (09/01/2019 7:01 PM COUPON COLLECTION CLERK): Refuses to update. Reviewed importance of screening. Pt voiced understanding. . Assessment & Plan (03/21/2019 10:54 AM CDT): Refuses. Reviewed risk of not screening. History of coronary artery stent placement 09/26 Assessment & Plan (09/01/2019 7:02 PM COUPON COLLECTION CLERK): Continue per cardio Resolved Problems Problem Noted Date Diagnosed Date Resolved Date Prediabetes 04/06/2024 09/16/2024 Assessment & Plan (09/16/2024 6:31 AM COUPON COLLECTION CLERK): Pre-diabetes/hyperglycemia is a precursor to Dm. Stressed importance of working on diet (decrease your simple sugars and one carbohydrate with each meal) and increase you exercise to achieve weight loss and this will help prevent you from progressing to diabetes. Pneumonia due to infectious organism 10/27/2023 04/06/2024 Assessment & Plan (01/05/2024 11:31 PM CDT): Continue following with Pulmonary Dr. Powell at [facility]. Continue with the breasts tree he isn't [...] Continue following with Pulmonary Dr. Powell at [facility]. Continue with the breasts tree he isn't [...] 04/06/2024 Assessment & Plan (06/11/2023 2:19 PM COUPON COLLECTION CLERK): This is a significant, separately identifiable problem [...] Reviewed options for assistance with cessation. Reviewed intermediate card tender sequela associated with smoking. Pt declines assistance [...] Needs to repeat voiding trial with Urology. [facility] is not able to take the patient so will check with [facility] be in contact with the patient. [...] 04/06/2024 Assessment & Plan (06/11/2023 2:16 PM COUPON COLLECTION CLERK): Encouraged healthy lifestyle, good nutrition and exercise. [...] the wellness exam BMI 23.0-23.9, adult 05/31/2021 04/24/2 023 Assessment & Plan (08/28/2022 9:29 PM COUPON COLLECTION CLERK): Weight/BMI is in healthy range. Continue healthy [...] re-evaluate Assessment & Plan (10/02/2023 10:07 AM COUPON COLLECTION CLERK): Probably multifactorial. Check labs and followup to [...] 020 Assessment & Plan (08/27/2019 8:56 AM COUPON COLLECTION CLERK): Weight/BMI is in healthy range. Continue healthy lifestyle to maintain. BMI 23.0-23.9, adult 03/21/2019 024 Assessment & Plan (10/02/2023 10:07 AM COUPON COLLECTION CLERK): Weight/BMI is in healthy range. Continue healthy lifestyle to maintain. Assessment & Plan (05/23/2020 11:03 AM CDT): Weight/BMI is in healthy range. Continue healthy lifestyle to maintain. Assessment & Plan (03/21/2019 7:49 AM CDT): Weight/BMI is in healthy range. Continue healthy lifestyle to maintain. Need for 23-polyvalent pneum ococcal polysaccharide vaccine 03/21/2019 08/27/2019 Other fatigue 03/21/2019 03/22/2020 Assessment & Plan (09/01/2019 7:02 PM COUPON COLLECTION CLERK): Probably multifactorial. Check labs and followup to [...] Reviewed options for assistance with cessation. Reviewed intermediate card tender sequela associated with smoking. Pt declines assistance at this time but may contact the office at anytime for further help as they desire. Assessment & Plan (08/28/2022 9:26 PM COUPON COLLECTION CLERK): Encouraged smoking cessation. Discussed 3 minutes. Reviewed options for assistance with cessation. Reviewed prison sequela associated with smoking. Pt declines assistance at this time but may contact the office at anytime for further help as they desire. Assessment & Plan (05/21/2022 2:24 PM CDT): Encouraged smoking cessation. Discussed 3 minutes. Reviewed options for assistance with cessation. Reviewed intermediate card tender sequela associated with smoking. Pt declines assistance at this time but may contact the office at anytime for further help as they desire. Assessment & Plan (12/19/2021 5:43 PM CDT): Encouraged smoking cessation. Discussed 3 minutes. Reviewed options for assistance with cessation. Reviewed prison sequela associated with smoking. Pt declines assistance at this time but may contact the office at anytime for further help as they desire. Due for low-dose CT. Order placed Assessment & Plan (05/31/2021 11:54 AM CDT): Encouraged smoking cessation. Discussed 3 minutes. Reviewed options for assistance with cessation. Reviewed prison sequela associated with smoking. Pt declines assistance at this time but may contact the office at anytime for further help as they desire. Assessment & Plan (11/26/2020 1:18 PM CDT): Encouraged smoking cessation. Discussed 3 minutes. Reviewed options for assistance with cessation. Reviewed intermediate card tender sequela associated with smoking. Pt declines assistance at this time but may contact the office at anytime for further help as they desire. Assessment & Plan (05/23/2020 11:04 AM CDT): Encouraged smoking cessation. Discussed 3 minutes. Reviewed options for assistance with cessation. Reviewed intermediate card tender sequela associated with smoking. Pt declines assistance at this time but may contact the office at anytime for further help as they desire. Due to repeat the LDCT in 04/2020. Assessment & Plan (09/01/2019 7:01 PM COUPON COLLECTION CLERK): Encouraged smoking cessation. Discussed 3 minutes. Reviewed options for assistance with cessation. Reviewed prison sequela associated with smoking. Pt declines assistance [...] regimen Assessment & Plan (09/01/2019 7:02 PM COUPON COLLECTION CLERK): Continue with current regimen Assessment & Plan (03/21/2019 10:54 AM CDT): Stable continue current regimen. Encounters Date Type Department Care Team Description 05/06/2025 Results Follow-Up [facility] Medicine [address] [place] [address] [place] [address] [phone] Chest WO Contrast 05/06/2025 Orders Only [facility] Medicine [address] [place] [address] [place] [phone] Smita Gaona PA Solitary pulmonary nodule from Last 3 Months Immunizations Immunization Administration Dates Next Due Influenza, Quadrivalent, Hig h Dose, Preservative Free, Intrr 05/30/2023,05/17/2022,05/31/2021,05/21 Influenza, Trivalent, High D ose, Split, Preservative Free, Intramuscular 05/08/2024,05/15/2019,06/12/2018 [employer] ([employer]) SARS-CoV-2 Vaccination 10/13/2020 Pneumococcal Conjugate PCV [...] on file Legal Sex Male 12:39 AM COUPON COLLECTION CLERK Gender Identity Not on file Sexual Orientation Not on file Occupation Industry Job Start Date Job End Date Retired Not on file Not on file Not on file Last Filed Vital Signs Vital Sign Reading [...] , 02/05/2022, 11/13/2020 Covid-19 Vaccine (2 - 2024-09 6 season) 2025 10/13/2020 Influenza Vaccine (#1) 2025 , 05/30/2023, [...] history exists Medical Devices Implanted Type Area Senior Java Web Application Developer Device Identifier Shelf Expiration Date Model / Serial / Lot Stent Implanted:Qty: 4 Stent Heart [employer] Visi-Pro 10mm 27mm 80cm Radiopaque Balloon Expand Radial Strength - [id number] Implanted:Qty: 1 on 12/14/2022 by Ilan Gutierrez MD at [facility] Stent Left: Iliac [employer] [id number] 12/12/2024 [id number] -27-080 / / [id number] [employer] Visi-Pro 10mm 27mm 80cm Radiopaque Balloon Expand Radial Strength - [id number] Implanted:Qty: 1 on 12/14/2022 by Ilan Gutierrez MD at [facility] Stent Right: Iliac [employer] [id number] 08/23/2025 [id number] -27-080 / / [id number] [employer] [place] Excluder 12mm 10cm Contralateral Leg Graft Endovascular [id number] - [id number] - [id number] Implanted:Qty: 1 on 12/14/2022 by Ilan Gutierrez MD at [facility] Stent Left: Iliac [employer] [id number] 07/07/2025 [id number] / [id number] / [employer] [place] Excluder 12mm 12cm Contralateral Leg Graft Endovascular [id number] - [id number] - [id number] Implanted:Qty: 1 on 12/14/2022 by Ilan Gutierrez MD at [facility] Stent Right: Iliac [employer] [id number] 08/30/2025 [id number] / [id number] / [employer] Excluder 14.5mm 36mm 14cm 6.5cm Conformable Active Control Trunk [id number] - [id number] - [id number] Implanted:Qty: 1 on 12/14/2022 by Ilan Gutierrez MD at [facility] Stent N/A: Aorta [employer] [id number] 07/02/2025 [id number] / [id number] / Gil V[employer] Device Clsr Perclose Prostyle Sut-Mediatd Closure-Repair Sys 75010-71 - [id number] Implanted:Qty: 2 on 12/14/2022 by Ilan Gutierrez MD at [facility] Stent Right: Groin [employer] [id number] 10/04/2024 [id number] / / [id number] [employer] Device Clsr Perclose Prostyle Sut-Mediatd Closure-Repair Sys 74568-04 - [id number] Implanted:Qty: 1 on 12/14/2022 by Ilan Gutierrez MD at [facility] Vascular Closure Device Left: Groin [employer] [id number] 10/04/202450176-18 / / [id number] [employer] Device Clsr Perclose Prostyle Sut-Mediatd Closure-Repair Sys 95580-91 - [id number] Implanted:Qty: 1 on 12/14/2022 by Ilan Gutierrez MD at [facility] Vascular Closure Device Left: Groin [employer] [id number] 10/04/202445131-97 / / [id number] [employer] [facility] Device Closure Vascade Od5 Fr Femoral Artery [id number] - [id number] Implanted:Qty: 1 on 10/13/2022 by Manuel Jade MD at [facility] Diurnal [facility] 06/30/2024 [id number] / / [id number] Procedures Procedure Name Priority Date/Time Associated Diagnosis Comments CT CHEST WO CONTRAST Schedule Routine, Read Routine (OP Routine) 05/06/2025 9:20 AM CDT Solitary pulmonary nodule CTA ABDOMEN PELVIS W WO CONTRAST Schedule Routine, Read Routine (OP Routine) 01/23/2023 12:52 PM CDT Encounter for surgical aftercare following surgery on the circulatory system CT CHEST WO CONTRAST F/U LUNG SCREEN PROTOCOL Schedule Routine, Read Routine (OP Routine) 08/13/[address] lung screening from Last 3 Months or Most Recently Relevant to Health Maintenance Results * (ABNORMAL) CT Chest WO Contrast (05/06/2025 9:20 AM CDT) Anatomical Region Laterality Modality Body N/A Computed Tomogra phy Impressions 05/06/2025 9:20 AM CDT Small pulmonary nodules stable from 02/05/2022, likely benign Mild emphysema Smita EATON IMG CT PROCEDURES Final Re sult * CTA Abdomen Pelvis (01/23/2023 12:52 PM CDT) Anatomical Region Laterality Modality Body N/A Computed Tomogra phy 01/23/2023 2:02 PM CDT Impressions 01/23/2023 5:15 PM CDT Endovascular abdominal aortic repair with patent stent graft. No evidence of endoleak. 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 The eklutna aneurysm sac measuring 4.5 x 4.0 cm [...] renal artery origin which is unchanged. The eklutna aneurysm sac measuring 4.5 x 4.0 cm [...] stent graft. No evidence of endoleak. 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 Marked urinary bladder distention and mural thickening with prostatomegaly. Query chronic outlet obstruction. Electronically signed by: Sarah Carmona M.D. Ilan Gutierrez MD IMG CT PROCEDURES Final Resu lt * CT Chest WO Contrast F/U Lung Screen Protocol (08/13/2022) Anatomical Region Laterality Modality Chest N/A Computed Tomogra phy Smita EATON IMG CT PROCEDURES Final Re sult from Last 3 Months or Most Recently Relevant to Health Maintenance Insurance MEDICARE [facility] MEDICARE AETNA MEDICARE AET SENIOR SUPPLEMENT Advance Directives For more information, please contact: [phone] Documents on File Type Date Recorded Patient Eyelet Punch Operator Expl anation ADVANCE DIRECTIVE 09/02/2024 3:26 PM POLST * Full Code (Latest Code Status on File) Date Activated Date Inactivated Comments 12/14/2022 2:11 PM 12/16/2022 9:13 PM Care Teams Basic Combatant Swimmer Relationship Specialty Start Date End Date Smita Gaona PA [address] [place] [address] PCP - General Internal Medicine 11/13/18 Elliot Kerr MD [address] [place], [place] [id number] Consulting Physician Cardiology 03/21/19 Manuel Jade MD [address] [place] [address] Consulting Physician Cardiology 11/08/22 [place] [address] [place] [address] Consulting Physician Vascular Surgery 12/16/22
--- NOTE | 2025-07-19 17:35 | ECG_ITS ---
Test Date: 2025-07-19 18:57:42 Measurements Intervals Olar Rate: 70 P: 70 MA: 190 QRS: 53 QRSD: 95 T: 39 QT: 406 QTc: 441 Interpretive Statements SINUS RHYTHM MINIMAL Q WAVES- INFERIOR LEADS BORDERLINE ECG Compared to ECG 09/08/2024 03:29:27 NO SIGNIFICANT CHANGE Electronically Signed On 07-20-2025 09:27:57 POUNCER by Salbador Allen D.O.
--- NOTE | 2025-07-19 17:59 | ED.NEUROSD ---
HPI - Neuro Symptoms/Deficit General Chief Complaint: Neuro Symptoms/Deficit <Raghav Becker MD - Last Filed: 07/19/25 19:04> Stated Complaint: R arm weakness since 1200 <Raghav Becker MD - Last Filed: 07/19/25 19:04> Time Seen by Provider: 07/19/25 17:29 <Raghav Becker MD - Last Filed: 07/19/25 19:04> Source: patient and family <Raghav Becker MD - Last Filed: 07/19/25 19:04> Mode of arrival: wheelchair <Raghav Becker MD - Last Filed: 07/19/25 19:04> Limitations: no limitations <Raghav Becker MD - Last Filed: 07/19/25 19:04> History of Present Illness HPI Narrative: 80-year-old with a history of hypertension hyperlipidemia, chronic alcoholism, CAD with multiple stents brought in by his brother with complaints of unable to hold objects with the right hand. Patient states that he is unable to hold a cigarette to his mouth since noon. He also states that he fell 10 days ago. Denies having any headache or chest pain. <Raghav Becker MD - Last Filed: 07/19/25 19:04> Related Data Home Medications: Home Medications ?Medication ?Instructions ?Recorded ?Confirmed ?Last Taken ?Type Claritin 10 mg PO AC PRN Allergy Symptoms 08/04/19 04/24/25 11/29/23 09:00 History 10 rosuvastatin 20 mg tablet 40 mg PO HS 08/04/19 04/24/25 11/28/23 21:00 History 20 aspirin 325 mg tablet 325 mg PO DAILY 10/11/23 04/24/25 11/29/23 09:00 History 325 duloxetine 60 mg capsule,delayed 60 mg PO DAILY 10/11/23 04/24/25 11/29/23 09:00 History release 60 finasteride 5 mg PO DAILY 10/11/23 04/24/25 11/29/23 09:00 History 5 folic acid 800 mcg PO DAILY 10/11/23 04/24/25 11/29/23 09:00 History 800 metoprolol tartrate 50 mg tablet 25 mg PO BID 10/11/23 04/24/25 11/29/23 09:00 History 25 tamsulosin 0.4 mg capsule 0.4 mg PO QPM 10/11/23 04/24/25 11/28/23 21:00 History 0.4 fluticasone fur. 200 mcg-umeclid inhalation 04/24/25 04/24/25 Unknown History 62.5 mcg-vilant 25 mcg inhalat.powder (Trelegy Ellipta) <Raghav Becker MD - Last Filed: 07/19/25 19:04> Allergies/Adverse Reactions: Allergies Allergy/AdvReac Type Severity Reaction Status Date / Time lisinopril Allergy Mild Swelling Verified 07/19/25 19:09 <Raghav Becker MD - Last Filed: 07/19/25 19:04> Review of Systems Review of Systems: All systems reviewed & are unremarkable except as noted in HPI and below <Raghav Becker MD - Last Filed: 07/19/25 19:04> ROS unobtainable: Yes unobtainable due to endotracheal tube <Raghav Becker MD - Last Filed: 07/19/25 19:04> Constitutional: Constitutional: Reports no additional constitutional complaints <Raghav Becker MD - Last Filed: 07/19/25 19:04> Eyes: Eyes: Reports no additional eye complaints <Raghav Becker MD - Last Filed: 07/19/25 19:04> ENT: Reports system reviewed and no additional complaints, except as documented <Raghav Becker MD - Last Filed: 07/19/25 19:04> Cardiovascular: Cardiovascular: Reports no additional cardiovascular complaints <Raghav Becker MD - Last Filed: 07/19/25 19:04> Respiratory: Respiratory: Reports no additional respiratory complaints <Raghav Becker MD - Last Filed: 07/19/25 19:04> Gastrointestinal: Gastrointestinal: Reports no additional gastrointestinal complaints <Raghav Becker MD - Last Filed: 07/19/25 19:04> Musculoskeletal: Musculoskeletal: Reports no additional musculoskeletal complaints <Raghav Becker MD - Last Filed: 07/19/25 19:04> Neurologic: Reports as per HPI <Raghav Becker MD - Last Filed: 07/19/25 19:04> Psychiatric: Psychiatric: Reports no additional psychiatric complaints <Raghav Becker MD - Last Filed: 07/19/25 19:04> PMFSH Past Medical History Medical History: Medical History Peripheral vascular disease s/p bilateral lower extremity stents Anxiety Depression Urinary tract infection Bronchitis Emphysema (subcutaneous) (surgical) resulting from a procedure COPD (chronic obstructive pulmonary disease) Hypertension Hypercholesterolemia Presence of combination internal cardiac defibrillator (ICD) and pacemaker Coronary artery disease Myocardial infarction Cardiac arrest September 2014, 2 stents placed Bilateral cataracts <Raghav Becker MD - Last Filed: 07/19/25 19:04> Surgical History Surgical History: Surgical History Hx of endovascular stent graft for abdominal aortic aneurysm x3 History of heart artery stent x4 <Raghav Becker MD - Last Filed: 07/19/25 19:04> Family History Family History: Family History Mother Hypertension Heart disease Diabetes mellitus Father Lung cancer <Raghav Becker MD - Last Filed: 07/19/25 19:04> Social History Social History: Social History Smoking packs per day: 1 Smoking cigarettes per day: 20.0 Years smoked: 63 Smoking pack-years: 63.00 Smoking status: Current every day smoker Tobacco type: cigarettes Second hand tobacco smoke exposure: No Additional smoking assessment comments: Patient states that he smokes but doesn't inhale. Alcohol intake: never Substance use: never Substance use type: does not use Lack of Transportation: YES Lack of Food: Never True Current Housing: I Have Housing Concerned About Future Housing: No Difficulty Paying Gas/Electric Bills: No Difficulty Paying for Meds: No Currently Unemployed: No Education: Associate Degree Difficulty w/ Childcare or Family Care: No Gender identity (if verbalized by the patient): Male Spiritual care concerns: No <Raghav Becker MD - Last Filed: 07/19/25 19:04> Exam Narrative: GENERAL: Well-appearing, well-nourished, and in no acute distress. HEAD: Normocephalic, atraumatic. EYES: PERRLA and EOMI. ENT: Nares clear, no rhinorrhea or epistaxis. Mucous membranes moist. NECK: Supple. CHEST: Clear to auscultation. No respiratory distress. HEART: Regular rate and rhythm. No murmur heard. Normal peripheral pulses. ABDOMEN: Soft, nontender, nondistended, normal active bowel sounds. EXTREMITIES: Normal range of motion. No edema. SKIN: Warm, dry, no rash. NEURO: No focal deficits. Alert and oriented x3. Has limb ataxia on the right PSYCH: Normal mood and affect. <Raghav Becker MD - Last Filed: 07/19/25 19:04> Course Course Emergency Course: Patient care signed over by previous provider pending discussion with [facility]. Patient came in with right upper extremity ataxia, NIH stroke scale 2, hemodynamically stable. Suspect acute ischemic stroke given his history of prior strokes on noncontrast CT. No LVO seen on CT angiography. Did touch to base with [facility] Dr. Zhang and we rediscussed the case. Given that there is no LVO and he is outside window for intervention otherwise he would be a non-time critical transfer and the [facility] system is currently on black list, they will call when ER is able to accommodate a transfer. Transfer center will give us updates on potential transfer to ER. He was given 325 mg of p.o. aspirin. Transfer center reached back out to me and connected me to the emergency department for transfer at this time. Spoke to Dr. Johnson and he will accept the patient ER to ER after we went over patient's clinical presentation for acute stroke. Patient given aspirin and remained hemodynamically stable. I updated patient and family. ALS ambulance arranged for transfer to [facility]. <Adonay Torres MD - Last Filed: 07/20/25 04:31> Vital Signs Vital signs: Vital Signs Temperature 36.4 C L 07/19/25 17:24 Pulse Rate 79 07/19/25 17:24 Respiratory Rate 18 07/19/25 17:24 Blood Pressure 152/73 H 07/19/25 17:24 Pulse Oximetry 100 07/19/25 17:24 Oxygen Delivery Room Air 07/19/25 17:24 Temperature 36.4 C L 07/19/25 17:24 Pulse Rate 71 07/19/25 20:15 Respiratory Rate 18 07/19/25 20:15 Blood Pressure 144/67 H 07/19/25 18:20 Pulse Oximetry 99 07/19/25 20:15 Oxygen Delivery Room Air 07/19/25 17:24 <Raghav Becker MD - Last Filed: 07/19/25 19:04> Vital Signs Temperature 36.4 C L 07/19/25 17:24 Pulse Rate 79 07/19/25 17:24 Respiratory Rate 18 07/19/25 17:24 Blood Pressure 152/73 H 07/19/25 17:24 Pulse Oximetry 100 07/19/25 17:24 Oxygen Delivery Room Air 07/19/25 17:24 Temperature 36.4 C L 07/19/25 17:24 Pulse Rate 71 07/19/25 20:15 Respiratory Rate 18 07/19/25 20:15 Blood Pressure 144/67 H 07/19/25 18:20 Pulse Oximetry 99 07/19/25 20:15 Oxygen Delivery Room Air 07/19/25 17:24 <Adonay Torres MD - Last Filed: 07/20/25 04:31> MDM Differential Diagnosis Differential Diagnosis: CVA, TIA, Metabolic derangement, Hepatic encephalopathy <Adonay Torres MD - Last Filed: 07/20/25 04:31> Lab Data Result diagrams: 07/19/25 18:01 07/19/25 18:01 <Raghav Becker MD - Last Filed: 07/19/25 19:04> Labs: Lab Results 07/19/25 Range/Units 18:01 WBC 11.4 H (4.5-10.0) K/mm3 RBC 4.17 L (4.6-6.20) M/mm3 Hgb 12.2 L (14.0-18.0) g/dL Hct 37.3 L (42.0-52.0) % MCV 89.4 (80-100) fl MCH 29.3 (26-34) pg MCHC 32.7 (32-36) g/dl RDW 14.7 H (11.5-14.5) % Plt Count 256 (150-375) k/mm3 MPV 9.8 (7.4-10.4) fl Immature Gran % (Auto) 0.3 (0-0.5) % Neut % (Auto) 75.4 H (45.5-73.1) % Lymph % (Auto) 8.4 L (18.3-44.2) % [place] % (Auto) 11.0 H (2.6-8.5) % Eos % (Auto) 4.5 H (0-4.4) % Baso % (Auto) 0.4 (0.2-1.2) % Lymph # (Auto) 0.95 (0.9-3.2) K/mm3 [place] # (Auto) 1.3 H (0.1-0.6) K/mm3 Eos # (Auto) 0.5 H (0-0.3) K/mm3 Baso # (Auto) 0.0 (0.0-0.1) K/mm3 Abs Immat Gran (auto) 0.03 (0.00-0.031) K/mm3 Absolute Neuts (auto) 8.6 H (1.3-6.7) K/mm3 Absolute Nucleated RBC 0.000 (0.0-0.012) K/mm3 Nucleated RBC % 0.0 (0.0-0.2) % PT 14.6 (11.1-14.7) Seconds INR 1.1 Sodium 131 L (137-145) mmol/L Potassium 3.7 (3.4-5.0) mmol/L Chloride 102 (98-107) mmol/L Carbon Dioxide 21 L (22-30) mmol/L Anion Gap 8 (4-12) mmol/L BUN 17 (9-20) mg/dL Creatinine 1.20 (0.7-1.3) mg/dL Estim Creat Clear Calc 40 ml/min Estimated GFR 58 L (59 - ) Glucose 99 (65-110) mg/dL Calcium 8.9 (8.4-10.2) mg/dL Total Bilirubin 0.3 (0.2-1.3) mg/dL AST 29 (17-59) U/L ALT 16 (6-50) U/L Alkaline Phosphatase 75 (38-126) U/L Troponin I < 0.012 (0.000-0.034) ng/mL Total Protein 7.4 (6.3-8.2) g/dL Albumin 4.0 (3.5-5.1) g/dL Ethyl Alcohol 29 (<10) mg/dL <Raghav Becker MD - Last Filed: 07/19/25 19:04> Lab Results 07/19/25 Range/Units 18:01 WBC 11.4 H (4.5-10.0) K/mm3 RBC 4.17 L (4.6-6.20) M/mm3 Hgb 12.2 L (14.0-18.0) g/dL Hct 37.3 L (42.0-52.0) % MCV 89.4 (80-100) fl MCH 29.3 (26-34) pg MCHC 32.7 (32-36) g/dl RDW 14.7 H (11.5-14.5) % Plt Count 256 (150-375) k/mm3 MPV 9.8 (7.4-10.4) fl Immature Gran % (Auto) 0.3 (0-0.5) % Neut % (Auto) 75.4 H (45.5-73.1) % Lymph % (Auto) 8.4 L (18.3-44.2) % [place] % (Auto) 11.0 H (2.6-8.5) % Eos % (Auto) 4.5 H (0-4.4) % Baso % (Auto) 0.4 (0.2-1.2) % Lymph # (Auto) 0.95 (0.9-3.2) K/mm3 [place] # (Auto) 1.3 H (0.1-0.6) K/mm3 Eos # (Auto) 0.5 H (0-0.3) K/mm3 Baso # (Auto) 0.0 (0.0-0.1) K/mm3 Abs Immat Gran (auto) 0.03 (0.00-0.031) K/mm3 Absolute Neuts (auto) 8.6 H (1.3-6.7) K/mm3 Absolute Nucleated RBC 0.000 (0.0-0.012) K/mm3 Nucleated RBC % 0.0 (0.0-0.2) % PT 14.6 (11.1-14.7) Seconds INR 1.1 Sodium 131 L (137-145) mmol/L Potassium 3.7 (3.4-5.0) mmol/L Chloride 102 (98-107) mmol/L Carbon Dioxide 21 L (22-30) mmol/L Anion Gap 8 (4-12) mmol/L BUN 17 (9-20) mg/dL Creatinine 1.20 (0.7-1.3) mg/dL Estim Creat Clear Calc 40 ml/min Estimated GFR 58 L (59 - ) Glucose 99 (65-110) mg/dL Calcium 8.9 (8.4-10.2) mg/dL Total Bilirubin 0.3 (0.2-1.3) mg/dL AST 29 (17-59) U/L ALT 16 (6-50) U/L Alkaline Phosphatase 75 (38-126) U/L Troponin I < 0.012 (0.000-0.034) ng/mL Total Protein 7.4 (6.3-8.2) g/dL Albumin 4.0 (3.5-5.1) g/dL Ethyl Alcohol 29 (<10) mg/dL <Adonay Torres MD - Last Filed: 07/20/25 04:31> Imaging Data Radiologist's impression: ITS Impressions Head CT 07/19/25 18:00 Impression: 1.No acute intracranial abnormality. Head/Neck CTA 07/19/25 18:44 IMPRESSION: 1. No critical stenosis, occlusion or aneurysm is identified. 3. Enlarged right hilar lymph node. Outpatient chest CT recommended <Raghav Becker MD - Last Filed: 07/19/25 19:04> ITS Impressions Head CT 07/19/25 18:00 Impression: 1.No acute intracranial abnormality. Head/Neck CTA 07/19/25 18:44 IMPRESSION: 1. No critical stenosis, occlusion or aneurysm is identified. 3. Enlarged right hilar lymph node. Outpatient chest CT recommended <Adonay Torres MD - Last Filed: 07/20/25 04:31> ECG Data EKG #1: ECG completion date: 07/19/25 <Raghav Becker MD - Last Filed: 07/19/25 19:04> ECG completion time: 18:57 <Raghav Becker MD - Last Filed: 07/19/25 19:04> normal rate (70), sinus rhythm, no ectopy, normal QRS and no acute changes <Raghav Becker MD - Last Filed: 07/19/25 19:04> Critical Care Time Critical Care Time Critical Care Time: Yes <Adonay Torres MD - Last Filed: 07/20/25 04:31> Time Type: Intermittent <Adonay Torres MD - Last Filed: 07/20/25 04:31> Initial evaluation, discuss w/ involved parties, attempting to gather old records: 10 minutes <Adonay Torres MD - Last Filed: 07/20/25 04:31> Documenting medical record: 5 minutes <Adonay Torres MD - Last Filed: 07/20/25 04:31> Review of results (EKG's, labs, imaging): 5 minutes <Adonay Torres MD - Last Filed: 07/20/25 04:31> Serial repeat bedside evaluation: 10 minutes <Adonay Torres MD - Last Filed: 07/20/25 04:31> Discussing case with multiple memebers of the care team and consultants: 10 minutes <Adonay Torres MD - Last Filed: 07/20/25 04:31> Total Critical Care Time: 40 <Adonay Torres MD - Last Filed: 07/20/25 04:31> Discharge Plan Discharge Clinical Impression: Ataxia, Acute ischemic stroke <Raghav Becker MD - Last Filed: 07/19/25 19:04> Patient Disposition: Acute Care Hospital <Raghav Becker MD - Last Filed: 07/19/25 19:04> Condition: Stable <Raghav Becker MD - Last Filed: 07/19/25 19:04> Patient Language: Urdu <Raghav Becker MD - Last Filed: 07/19/25 19:04> Prescriptions: No Action rosuvastatin 20 mg tablet 40 mg PO HS Claritin 10 mg PO AC PRN (Reason: Allergy Symptoms) Trelegy Ellipta 200-62.5-25 mcg blister with device inhalation albuterol sulfate 90 mcg/actuation HFA aerosol inhaler 1 - 2 inh inhalation Q4-6H PRN (Reason: shortness of breath or wheezing) Qty: 8.5 2RF azelastine 137 mcg (0.1 %) spray,non-aerosol 137 mcg intranasal . q.h.s. Qty: 30 3RF Rx Instructions: administer into each nostril q.h.s. to spray aspirin 325 mg Tablet 325 mg PO DAILY tamsulosin 0.4 mg capsule 0.4 mg PO QPM metoprolol tartrate 50 mg tablet 25 mg PO BID duloxetine 60 mg capsule,delayed release(DR/EC) 60 mg PO DAILY finasteride 5 mg PO DAILY folic acid 800 mcg PO DAILY albuterol sulfate 90 mcg inhalation Q4HWA PRN (Reason: Shortness Of Breath) Qty: 1 2RF <Raghav Becker MD - Last Filed: 07/19/25 19:04> Follow-up/Referrals: Candelaria,UMA Ordoeñz [Primary Care Provider, Unknown] <Raghav Becker MD - Last Filed: 07/19/25 19:04> Quality Stroke Date of last known normal: 07/19/25 <Raghav Bceker MD - Last Filed: 07/19/25 19:04> Time of last known normal: 12:00 <Raghav Becker MD - Last Filed: 07/19/25 19:04> Stroke Scale Stroke Scale 1: Stroke scale time:: 17:35 <Raghav Becker MD - Last Filed: 07/19/25 19:04> 1a Level of consciousness: alert-0 <Raghav Becker MD - Last Filed: 07/19/25 19:04> 1b Level of consciousness questions: answers both correctly-0 <Raghav Becker MD - Last Filed: 07/19/25 19:04> 1c Level of consciousness commands: obeys both correctly-0 <Raghav Becker MD - Last Filed: 07/19/25 19:04> 2 Best gaze: normal-0 <Raghav Becker MD - Last Filed: 07/19/25 19:04> 3 Visual: no visual loss-0 <Raghav Becker MD - Last Filed: 07/19/25 19:04> 4 Facial palsy: normal-0 <Raghav Becker MD - Last Filed: 07/19/25 19:04> 5a Motor: left arm: no drift-0 <Raghav Becker MD - Last Filed: 07/19/25 19:04> 5b Motor: right arm: drift-1 <Raghav Becker MD - Last Filed: 07/19/25 19:04> 6a Motor: left leg: no drift-0 <Raghav Becker MD - Last Filed: 07/19/25 19:04> 6b Motor: right leg: no drift-0 <Raghav Becker MD - Last Filed: 07/19/25 19:04> 7 Limb ataxia: present in one limb-1 <Raghav Becker MD - Last Filed: 07/19/25 19:04> 8 Sensory: normal-0 <Raghav Becker MD - Last Filed: 07/19/25 19:04> 9 Best language: no aphasia-0 <Raghav Becker MD - Last Filed: 07/19/25 19:04> 10 Dysarthria: normal-0 <Raghav Becker MD - Last Filed: 07/19/25 19:04> 11 Extinction and inattention: no abnormality-0 <Raghav Becker MD - Last Filed: 07/19/25 19:04> Level:: 2 <Raghav Becker MD - Last Filed: 07/19/25 19:04> 2 <Adonay Torres MD - Last Filed: 07/20/25 04:31>
--- OUTSIDE RECORDS SUMMARY | 2025-07-19 18:04 | XMS_ITS | Clinical Summary ---
Author Organization [facility] [address] Address [address] [place] [address] Care Team Providers Care Agency Service Representative Name Role Phone Smita Gaona Primary Care Provider [phone] Elliot Kerr MD Unavailable [phone] Manuel Jade MD Unavailable Ilan Gutierrez MD Unavailable Allergies Active Allergy Reactions Criticality Noted Date [...] 1 tablet (10 mg total) by mouth automatic dry starch operator before breakfast Active folic acid (FOLVITE) 800 mcg tabletIndications :Folate Deficiency Take 1 tablet (800 mcg total) by mouth automatic dry starch operator before breakfast Active cyanocobalamin (Vitamin B-12) 1,000 mcg tabletIndications :Prevention of Vitamin B12 Deficiency Take 1 tablet (1,000 mcg total) by mouth automatic dry starch operator before breakfast Active tamsulosin (FLOMAX) 0.4 mg [...] mg SL tabletIndications :Coronary artery disease of [place] artery of [place] heart with stable angina pectoris Place 1 [...] 09/16 Assessment & Plan (09/16/2024 6:33 AM BRACELET AND BROOCH MAKER): Encouraged healthy lifestyle, good nutrition and exercise. Encouraged Calcium and Vitamin D and weight bearing exercise for bone health. Reviewed immunizations. Reviewed age appropirate screenings. Medicare Wellness Documentation is completed within the chart Forms completed for admission to [facility]. Benign prostatic hyperplasia without lower urinary tract symptoms 09/16/2024 Assessment & Plan (09/16/2024 6:28 AM BRACELET AND BROOCH MAKER): Continue finasteride and tamsulosin Slow transit constipation 04/06/2024 Assessment & Plan (09/16/2024 6:31 AM BRACELET AND BROOCH MAKER): Patient continues with the Colace to help with constipation. Increase exercise and fluids Assessment & Plan (04/06/2024 10:50 PM CDT): Constipation is better with the Colace. Continue to monitor. Increase fluids and exercise Pulmonary nodule 12/14/2023 Overview (12/14/2023): 10/10/2023 CTA chest at [facility]: 7mm right upper lobe pulmonary nodule suspicious for primary bronchogenic carcinoma. Non-contrast LDCT chest is recommended in 01/2024 Assessment & Plan (12/14/2023 11:34 AM CDT): 10/10/2023 CTA chest at [facility]: 7mm right upper lobe pulmonary nodule suspicious for primary bronchogenic carcinoma. Non-contrast LDCT chest is recommended in 01/2024 Need for vaccination 06/11/2023 Assessment & Plan (09/16/2024 6:33 AM BRACELET AND BROOCH MAKER): Prevnar 20 updated in office today Assessment & Plan (06/11/2023 2:19 PM BRACELET AND BROOCH MAKER): Flu vaccine updated in the office Cigarette smoker 06/11/2023 Assessment & Plan (09/16/2024 6:31 AM BRACELET AND BROOCH MAKER): Encouraged smoking cessation. Discussed 3 minutes. Reviewed options for assistance with cessation. Reviewed electric meter tester shop sequela associated with smoking. Pt declines assistance at this time but may contact the office at anytime for further help as they desire. Assessment & Plan (04/06/2024 10:52 PM CDT): Encouraged smoking cessation. Discussed 3 minutes. Reviewed options for assistance with cessation. Reviewed group home sequela associated with smoking. Pt declines assistance [...] Reviewed options for assistance with cessation. Reviewed group home sequela associated with smoking. Pt declines assistance at this time but may contact the office at anytime for further help as they desire. Assessment & Plan (10/02/2023 10:07 AM BRACELET AND BROOCH MAKER): Encouraged smoking cessation. Discussed 3 minutes. Reviewed options for assistance with cessation. Reviewed group home sequela associated with smoking. Pt declines assistance at this time but may contact the office at anytime for further help as they desire. Assessment & Plan (06/11/2023 2:19 PM BRACELET AND BROOCH MAKER): Encouraged smoking cessation. Discussed 3 minutes. Reviewed options for assistance with cessation. Reviewed group home sequela associated with smoking. Pt declines assistance at this time but may contact the office at anytime for further help as they desire. BMI 21.0-21.9, adult 01/16/2023 Assessment & Plan (03/26/2025 10:28 AM CDT): Weight/BMI is in healthy range. Continue healthy lifestyle to maintain. Assessment & Plan (09/02/2024 2:46 PM BRACELET AND BROOCH MAKER): Weight/BMI is in healthy range. Continue healthy lifestyle to maintain. Assessment & Plan (04/06/2024 10:52 PM CDT): Weight/BMI is in healthy range. Continue healthy lifestyle to maintain. Assessment & Plan (01/16/2023 9:38 AM CDT): Weight/BMI is in healthy range. Continue healthy lifestyle to maintain. PVD (peripheral vascular disease) 12/14/2022 Assessment & Plan (09/16/2024 6:30 AM BRACELET AND BROOCH MAKER): Status post stenting in his legs. Vascular [...] iliac stent placement Continue per vascular at [facility] Assessment & Plan (12/16/2022 8:30 AM CDT): [...] iliac stent placement Continue per vascular at [facility] Assessment & Plan (12/11/2022 9:30 PM CDT): [...] 05/21/2022 Assessment & Plan (08/28/2022 9:28 PM BRACELET AND BROOCH MAKER): Arterial studies did confirm claudication. started him [...] He prefers to have these done at [facility] as he would want to use the vascular group at [facility]. COPD (chronic obstructive pulmonary disease) 04/2019 Assessment & Plan (09/16/2024 6:30 AM BRACELET AND BROOCH MAKER): Patient has stopped as inhalers. Using ProAir [...] declines. Assessment & Plan (06/11/2023 2:18 PM BRACELET AND BROOCH MAKER): Strongly encouraged complete smoking cessation. He is [...] instructed. Assessment & Plan (08/28/2022 9:26 PM BRACELET AND BROOCH MAKER): Encouraged smoking cessation. He stop the Anoro [...] exacerbation. Assessment & Plan (09/01/2019 6:59 PM BRACELET AND BROOCH MAKER): Stop smoking Continue inhalers. Assessment & Plan [...] 03/15/2019 Assessment & Plan (09/01/2019 7:00 PM BRACELET AND BROOCH MAKER): Avoid JONATAN---still could be other products but doesn't want to see client service administrator. Assessment & Plan (03/21/2019 7:57 PM CDT): [...] 60 Assessment & Plan (06/11/2023 2:18 PM BRACELET AND BROOCH MAKER): Depression is stable with the Cymbalta. Assessment [...] Wellbutrin Assessment & Plan (09/01/2019 7:02 PM BRACELET AND BROOCH MAKER): Stable with Wellbutrin Assessment & Plan (03/21/2019 10:54 AM CDT): Stable with the Wellbutrin. Continue to monitor. Anxiety 03/15/2019 Assessment & Plan (05/31/2021 11:54 AM CDT): Stable Wellbutrin. Assessment & Plan (05/23/2020 11:03 AM CDT): See depression Assessment & Plan (09/01/2019 7:01 PM BRACELET AND BROOCH MAKER): Continue Wellbutrin Assessment & Plan (03/21/2019 10:53 AM CDT): Stable with the Wellbutrin. Will monitor Coronary artery disease of n ative artery of [place] heart with stable angina pectoris 03/15/2019 Overview (11/26/2020): history of PCI to the LAD in 1994 when he was living in [place]. He presented to [facility] with ischemic symptomatology in September of 2014. He underwent follow-up angiography demonstrating his LAD to be patent but he had high-grade stenosis in the largest OM circumflex branch. This was addressed with PTCA and stenting with resolution of his ischemic symptoms. Assessment & Plan (09/16/2024 6:29 AM BRACELET AND BROOCH MAKER): Continue per Cardiology. Continue beta-thor statin and aspirin Assessment & Plan (04/06/2024 10:51 PM CDT): Continue per Cardiology. He is on statin aspirin and a beta-thor Assessment & Plan (06/11/2023 2:17 PM BRACELET AND BROOCH MAKER): Continue per Cardiology. Blood pressure stable. Continue statin and aspirin. He is also on a beta-thor Assessment & Plan (01/15/2023 8:20 PM CDT): Continue per Cardiology. Continue aspirin statin and blood pressure control Will plan to restart the beta-thor as his blood pressure is able to allow Assessment & Plan (08/28/2022 9:27 PM BRACELET AND BROOCH MAKER): Continue per cardio at [facility]. Patient is on beta-thor and aspirin [...] ASA Assessment & Plan (09/06/2019 1:24 PM BRACELET AND BROOCH MAKER): Stable, without recent angina. He has coronary calcification, as expected. I made no change in his excellent medical regimen today, except to increase Crestor to 40 mg daily empirically. I asked him to follow up with me on an as-needed basis only. He will follow up with his usual tool grinder regularly. I advised him to continue to diet and exercise regularly, and to stop smoking completely. Assessment & Plan (09/01/2019 6:59 PM BRACELET AND BROOCH MAKER): On ASA. Continue with Cardio Assessment & Plan (03/21/2019 10:51 AM CDT): Stable. On beta-thor. Continue per Dr. Kerr. Mixed hyperlipidemia 03/15/2019 Assessment & Plan (09/16/2024 6:29 AM BRACELET AND BROOCH MAKER): Encouraged patient to follow low fat/low chol [...] Crestor Assessment & Plan (10/02/2023 10:07 AM BRACELET AND BROOCH MAKER): Encouraged patient to follow low fat/low chol diet like the Mediterranean diet. Increase good fats in the diet. Increase exercise. Monitor labs as needed. Continue Crestor Assessment & Plan (06/11/2023 2:17 PM BRACELET AND BROOCH MAKER): Encouraged patient to follow low fat/low chol [...] statin Assessment & Plan (08/28/2022 9:27 PM BRACELET AND BROOCH MAKER): Encouraged patient to follow low fat/low chol [...] statin Assessment & Plan (09/06/2019 1:19 PM BRACELET AND BROOCH MAKER): Lipids are well controlled. As above, I empirically increased Crestor to 40 mg daily. Assessment & Plan (09/01/2019 7:00 PM BRACELET AND BROOCH MAKER): Encouraged patient to continue low fat/low chol diet. Continue exercise. Increase good fats in the diet. Monitor labs as needed. Assessment & Plan (03/21/2019 10:53 AM CDT): Encouraged patient to continue low fat/low chol diet. Continue exercise. Increase good fats in the diet. Monitor labs as needed. Essential hypertension 03/15/2019 Assessment & Plan (09/16/2024 6:28 AM BRACELET AND BROOCH MAKER): Bp is stable/in acceptable range for any [...] b.i.d. Assessment & Plan (10/02/2023 10:07 AM BRACELET AND BROOCH MAKER): Bp is stable/in acceptable range for any co-morbidities. Encouraged to limit sodium intake and exercise for weight control. Continue per Cardiology. Continues with Lopressor 50 mg half tab twice a week Assessment & Plan (06/11/2023 2:17 PM BRACELET AND BROOCH MAKER): Bp is stable/in acceptable range for any [...] PCP Assessment & Plan (08/28/2022 9:28 PM BRACELET AND BROOCH MAKER): Bp is stable/in acceptable range for any [...] control. Assessment & Plan (09/06/2019 1:18 PM BRACELET AND BROOCH MAKER): Blood pressure is very well controlled. Continue same therapy. Continue diet and exercise. Assessment & Plan (09/01/2019 7:00 PM BRACELET AND BROOCH MAKER): Bp is stable/in acceptable range for any co-morbidities. Encouraged to limit sodium intake and exercise for weight control. Assessment & Plan (03/21/2019 10:52 AM CDT): Bp is stable/in acceptable range for any co-morbidities. Encouraged to limit sodium intake and exercise for weight control. Pre-diabetes 03/15/2019 Assessment & Plan (09/16/2024 6:28 AM BRACELET AND BROOCH MAKER): Pre-diabetes/hyperglycemia is a precursor to Dm. Stressed importance of working on diet (decrease your simple sugars and one carbohydrate with each meal) and increase you exercise to achieve weight loss and this will help prevent you from progressing to diabetes. Assessment & Plan (10/02/2023 10:07 AM BRACELET AND BROOCH MAKER): Pre-diabetes/hyperglycemia is a precursor to Dm. Stressed importance of working on diet (decrease your simple sugars and one carbohydrate with each meal) and increase you exercise to achieve weight loss and this will help prevent you from progressing to diabetes. Assessment & Plan (06/11/2023 2:16 PM BRACELET AND BROOCH MAKER): Pre-diabetes/hyperglycemia is a precursor to Dm. Stressed [...] diabetes. Assessment & Plan (08/28/2022 9:28 PM BRACELET AND BROOCH MAKER): Pre-diabetes/hyperglycemia is a precursor to Dm. Stressed [...] diabetes. Assessment & Plan (09/01/2019 7:02 PM BRACELET AND BROOCH MAKER): Pre-diabetes is a precursor to Dm. Stressed [...] cessation/reduction Assessment & Plan (09/01/2019 6:57 PM BRACELET AND BROOCH MAKER): Encouraged moderate use/stop. He is not interested [...] regimen Assessment & Plan (09/01/2019 6:59 PM BRACELET AND BROOCH MAKER): Continue current regimen Assessment & Plan (03/21/2019 [...] update. Assessment & Plan (09/01/2019 7:01 PM BRACELET AND BROOCH MAKER): Refuses to update. Reviewed importance of screening. Pt voiced understanding. . Assessment & Plan (03/21/2019 10:54 AM CDT): Refuses. Reviewed risk of not screening. History of coronary artery stent placement 09/26 Assessment & Plan (09/01/2019 7:02 PM BRACELET AND BROOCH MAKER): Continue per cardio Resolved Problems Problem Noted Date Diagnosed Date Resolved Date Prediabetes 04/06/2024 09/16/2024 Assessment & Plan (09/16/2024 6:31 AM BRACELET AND BROOCH MAKER): Pre-diabetes/hyperglycemia is a precursor to Dm. Stressed importance of working on diet (decrease your simple sugars and one carbohydrate with each meal) and increase you exercise to achieve weight loss and this will help prevent you from progressing to diabetes. Pneumonia due to infectious organism 10/27/2023 04/06/2024 Assessment & Plan (01/05/2024 11:31 PM CDT): Continue following with Pulmonary Dr. Powell at [facility]. Continue with the breasts tree he isn't [...] Continue following with Pulmonary Dr. Powell at [facility]. Continue with the breasts tree he isn't [...] 04/06/2024 Assessment & Plan (06/11/2023 2:19 PM BRACELET AND BROOCH MAKER): This is a significant, separately identifiable problem [...] Reviewed options for assistance with cessation. Reviewed electric meter tester shop sequela associated with smoking. Pt declines assistance [...] Needs to repeat voiding trial with Urology. [facility] is not able to take the patient so will check with [facility] be in contact with the patient. [...] 04/06/2024 Assessment & Plan (06/11/2023 2:16 PM BRACELET AND BROOCH MAKER): Encouraged healthy lifestyle, good nutrition and exercise. [...] 023 Assessment & Plan (08/28/2022 9:29 PM BRACELET AND BROOCH MAKER): Weight/BMI is in healthy range. Continue healthy [...] re-evaluate Assessment & Plan (10/02/2023 10:07 AM BRACELET AND BROOCH MAKER): Probably multifactorial. Check labs and followup to [...] 020 Assessment & Plan (08/27/2019 8:56 AM BRACELET AND BROOCH MAKER): Weight/BMI is in healthy range. Continue healthy lifestyle to maintain. BMI 23.0-23.9, adult 03/21/2019 024 Assessment & Plan (10/02/2023 10:07 AM BRACELET AND BROOCH MAKER): Weight/BMI is in healthy range. Continue healthy lifestyle to maintain. Assessment & Plan (05/23/2020 11:03 AM CDT): Weight/BMI is in healthy range. Continue healthy lifestyle to maintain. Assessment & Plan (03/21/2019 7:49 AM CDT): Weight/BMI is in healthy range. Continue healthy lifestyle to maintain. Need for 23-polyvalent pneum ococcal polysaccharide vaccine 03/21/2019 08/27/2019 Other fatigue 03/21/2019 03/22/2020 Assessment & Plan (09/01/2019 7:02 PM BRACELET AND BROOCH MAKER): Probably multifactorial. Check labs and followup to [...] Reviewed options for assistance with cessation. Reviewed electric meter tester shop sequela associated with smoking. Pt declines assistance at this time but may contact the office at anytime for further help as they desire. Assessment & Plan (08/28/2022 9:26 PM BRACELET AND BROOCH MAKER): Encouraged smoking cessation. Discussed 3 minutes. Reviewed options for assistance with cessation. Reviewed group home sequela associated with smoking. Pt declines assistance at this time but may contact the office at anytime for further help as they desire. Assessment & Plan (05/21/2022 2:24 PM CDT): Encouraged smoking cessation. Discussed 3 minutes. Reviewed options for assistance with cessation. Reviewed electric meter tester shop sequela associated with smoking. Pt declines assistance at this time but may contact the office at anytime for further help as they desire. Assessment & Plan (12/19/2021 5:43 PM CDT): Encouraged smoking cessation. Discussed 3 minutes. Reviewed options for assistance with cessation. Reviewed group home sequela associated with smoking. Pt declines assistance at this time but may contact the office at anytime for further help as they desire. Due for low-dose CT. Order placed Assessment & Plan (05/31/2021 11:54 AM CDT): Encouraged smoking cessation. Discussed 3 minutes. Reviewed options for assistance with cessation. Reviewed group home sequela associated with smoking. Pt declines assistance at this time but may contact the office at anytime for further help as they desire. Assessment & Plan (11/26/2020 1:18 PM CDT): Encouraged smoking cessation. Discussed 3 minutes. Reviewed options for assistance with cessation. Reviewed electric meter tester shop sequela associated with smoking. Pt declines assistance at this time but may contact the office at anytime for further help as they desire. Assessment & Plan (05/23/2020 11:04 AM CDT): Encouraged smoking cessation. Discussed 3 minutes. Reviewed options for assistance with cessation. Reviewed electric meter tester shop sequela associated with smoking. Pt declines assistance at this time but may contact the office at anytime for further help as they desire. Due to repeat the LDCT in 04/2020. Assessment & Plan (09/01/2019 7:01 PM BRACELET AND BROOCH MAKER): Encouraged smoking cessation. Discussed 3 minutes. Reviewed options for assistance with cessation. Reviewed group home sequela associated with smoking. Pt declines assistance [...] regimen Assessment & Plan (09/01/2019 7:02 PM BRACELET AND BROOCH MAKER): Continue with current regimen Assessment & Plan (03/21/2019 10:54 AM CDT): Stable continue current regimen. Encounters Date Type Department Care Team Description 05/06/2025 Results Follow-Up [facility] Medicine [address] [place] [address] [place] [address] [phone] Chest WO Contrast 05/06/2025 Orders Only [facility] Medicine [address] [place] [address] [place] [phone] Smita Gaona PA Solitary pulmonary nodule from Last 3 Months Immunizations Immunization Administration Dates Next Due Influenza, Quadrivalent, Hig h Dose, Preservative Free, Intrr 05/30/2023,05/17/2022,05/31/2021,05/21 Influenza, Trivalent, High D ose, Split, Preservative Free, Intramuscular 05/08/2024,05/15/2019,06/12/2018 [employer] SARS-CoV-2 Vaccination 10/13/2020 Pneumococcal Conjugate PCV [...] on file Legal Sex Male 12:39 AM BRACELET AND BROOCH MAKER Gender Identity Not on file Sexual Orientation [...] history exists Medical Devices Implanted Type Area Welding Pantograph Operator Device Identifier Shelf Expiration Date Model / Serial / Lot Stent Implanted:Qty: 4 Stent Heart [employer] Visi-Pro 10mm 27mm 80cm Radiopaque Balloon Expand Radial Strength - [id number] Implanted:Qty: 1 on 12/14/2022 by Ilan Gutierrez MD at [facility] Stent Left: Iliac [employer] Inc [id number] 12/12/2024 [id number] -27-080 / / [id number] Med[employer] Visi-Pro 10mm 27mm 80cm Radiopaque Balloon Expand Radial Strength - [id number] Implanted:Qty: 1 on 12/14/2022 by Ilan Gutierrez MD at [facility] Stent Right: Iliac [employer] Inc [id number] 08/23/2025 [id number] -27-080 / / [id number] [employer] [place] Excluder 12mm 10cm Contralateral Leg Graft Endovascular [id number] - [id number] - [id number] Implanted:Qty: 1 on 12/14/2022 by Ilan Gutierrez MD at [facility] Stent Left: Iliac [employer] [id number] 07/07/2025 [id number] / [id number] / [employer]l [employer] [place] Excluder 12mm 12cm Contralateral Leg Graft Endovascular [id number] - [id number] - [id number] Implanted:Qty: 1 on 12/14/2022 by Ilan Gutierrez MD at [facility] Stent Right: Iliac [employer] [id number] 08/30/2025 [id number] / [id number] / Wl [employer] Excluder 14.5mm 36mm 14cm 6.5cm Conformable Active Control Trunk [id number] - [id number] - [id number] Implanted:Qty: 1 on 12/14/2022 by Ilan Gutierrez MD at [facility] Stent N/A: Aorta [employer] [id number] 07/02/2025 [id number] / [id number] / Gil Vascular Device Clsr Perclose Prostyle Sut-Mediatd Closure-Repair Sys 06166-57 - [id number] Implanted:Qty: 2 on 12/14/2022 by Ilan Gutierrez MD at [facility] Stent Right: Groin [employer] [id number] 10/04/2024 [id number] / / [id number] Gil [employer] Device Clsr Perclose Prostyle Sut-Mediatd Closure-Repair Sys 31398-61 - [id number] Implanted:Qty: 1 on 12/14/2022 by Ilan Gutierrez MD at [facility] Vascular Closure Device Left: Groin [employer] [id number] 10/04/202420517-51 / / [id number] Gil Vascular Device Clsr Perclose Prostyle Sut-Mediatd Closure-Repair Sys 04089-41 - [id number] Implanted:Qty: 1 on 12/14/2022 by Ilan Gutierrez MD at [facility] Vascular Closure Device Left: Groin [employer] [id number] 10/04/202443950-94 / / [id number] Team [employer] [facility] Device Closure Vascade Od5 Fr Femoral Artery [id number] - [id number] Implanted:Qty: 1 on 10/13/2022 by Manuel Jade MD at [facility] [employer] [facility] 06/30/2024 [id number] / / [id number] Procedures Procedure Name Priority Date/Time Associated [...] stent graft. No evidence of endoleak. The [place] aortic aneurysm sac of 4.5 x 4.0 [...] renal artery origin which is unchanged. The [place] aneurysm sac measuring 4.5 x 4.0 cm [...] renal artery origin which is unchanged. The [place] aneurysm sac measuring 4.5 x 4.0 cm [...] stent graft. No evidence of endoleak. The [place] aortic aneurysm sac of 4.5 x 4.0 [...] Recently Relevant to Health Maintenance Insurance MEDICARE [facility] [employer] MEDICARE [employer] MEDICARE AET SENIOR SUPPLEMENT Advance Directives For more information, please contact: [phone] Documents on File Type Date Recorded Patient Duplicator Punch Set Up Operator Expl anation ADVANCE DIRECTIVE 09/02/2024 3:26 PM POLST * Full Code (Latest Code Status on File) Date Activated Date Inactivated Comments 12/14/2022 2:11 PM 12/16/2022 9:13 PM Care Teams Agency Service Representative Relationship Specialty Start Date End Date Smita Gaona PA [address] [place] [address] PCP - General Internal Medicine 11/13/18 Elliot Kerr MD [address] [place], [place] [id number] Consulting Physician Cardiology 03/21/19 Manuel Jade MD [address] [place] [address] Consulting Physician Cardiology 11/08/22 [place] [address] [place] [address] Consulting Physician Vascular Surgery 12/16/22
[2025-07-19 18:10] LABS: Hematocrit 37.3 % (42.0-52.0); Hemoglobin 12.2 g/dL (14.0-18.0); Immature Granulocyte Percent A 0.3 % (0-0.5); Lymphocytes Absolute Auto 0.95 K/mm3 (0.9-3.2); Mean Corpuscular HGB Conc 32.7 g/dl (32-36); Mean Corpuscular Hemoglobin 29.3 pg (26-34); Mean Corpuscular Volume 89.4 fl (80-100); Nucleated Red Blood Cells Absolute Auto 0.000 K/mm3 (0.0-0.012); Nucleated Red Blood Cells Perc 0.0 % (0.0-0.2); Platelet Count Result 256 k/mm3 (150-375); Red Blood Count 4.17 M/mm3 (4.6-6.20); White Blood Count 11.4 K/mm3 (4.5-10.0)
[2025-07-19] MEDS: SODIUM CHLORIDE 0.9% IV 1,000 ML 150 ML IV CONT (18:11)
[2025-07-19 18:43] LABS: INR 1.1; Prothrombin Time 14.6 Seconds (11.1-14.7)
[2025-07-19 18:58] LABS: Alanine Aminotransferase 16 U/L (6-50); Albumin Level 4.0 g/dL (3.5-5.1); Alkaline Phosphatase 75 U/L (38-126); Anion Gap 8 mmol/L (4-12); Aspartate Amino Transferase 29 U/L (17-59); Bilirubin,Total 0.3 mg/dL (0.2-1.3); Blood Urea Nitrogen 17 mg/dL (9-20); Calcium 8.9 mg/dL (8.4-10.2); Carbon Dioxide 21 mmol/L (22-30); Chloride 102 mmol/L (98-107); Estimated CRCL calculation 40 ml/min; Estimated Glomerular Filt Rate 58; Glucose 99 mg/dL (65-110); Potassium 3.7 mmol/L (3.4-5.0); Sodium 131 mmol/L (137-145); Total Protein 7.4 g/dL (6.3-8.2)
[2025-07-19 19:05] LABS: Troponin I < 0.012 ng/mL (0.000-0.034)
[2025-07-19] MEDS: ASPIRIN 325 MG TABLET PO (19:36)
== END 2025-07-19 20:25 | disposition short-term general hospital (02) ==
LOC: ANHED 18:03
PROVIDERS: Emergency Provider Family Medicine; PCP Physician Assistant
DX: I63.9 Cerebral infarction, unspecified (principal); R27.8 Other lack of coordination; E78.5 Hyperlipidemia, unspecified; I10 Essential (primary) hypertension; I25.10 Atherosclerotic heart disease of native coronary artery without angina pectoris; J43.9 Emphysema, unspecified; I25.2 Old myocardial infarction; F17.210 Nicotine dependence, cigarettes, uncomplicated; W19.XXXA Unspecified fall, initial encounter
CPT/HCPCS: 36415; 70450; 70496; 70498; 80053; 82077; 84484; 85025; 85610; 93005; 96360; 96361; 99285; A9270; J7030; Q9967